=== PATIENT | female | born 1945 | race Caucasian/White ===

== ENCOUNTER → 2017-04-15 08:44 | Outpatient (CLI) | payer MEDICARE, SELFPAY ==
[2016-03-22 09:58] VITALS: BMI 23.0
[2017-04-15 09:57] LABS: AST(SGOT) 23 U/L (15-37); Alanine Aminotransfer ALT/SGPT 30 U/L (13-56); Albumin, Serum 3.9 g/dL (3.2-5.0); Alkaline Phosphatase 60 U/L (45-117); Cholesterol 251 mg/dL (200); Globulin 3.9 g/dL (2.2-4.2); High Density Lipoprotein 58 mg/dL; Protein, Total 7.8 g/dL (6.4-8.2); Triglycerides 62 mg/dL; Very Low Density Lipoprotein 12 mg/dL (5-40)
== END ==
PROVIDERS: Nurse Practitioner Family; Family Provider Family Medicine; PCP Family Medicine; Visit Provider Internal Medicine Cardiovascular Disease
DX: E78.5 Hyperlipidemia, unspecified (principal); I25.10 Atherosclerotic heart disease of native coronary artery without angina pectoris; Z95.5 Presence of coronary angioplasty implant and graft
CPT/HCPCS: 36415; 80061; 80076

== ENCOUNTER 2017-05-13 11:30 | Outpatient (RCR) | payer MEDICARE, SELFPAY ==
[2016-03-22 09:58] VITALS: BMI 23.0
[2016-08-23 10:28] LABS: Absolute Lymphocyte Count 2.19 X10^3/uL (0.83-4.51); Absolute Neutrophil Count 3.2 X10^3/uL (2.0-7.7); Basophil# 0.07 X10^3uL; Basophil% 1.1 % (0-1); Eosinophil# 0.19 X10^3/uL; Eosinophils% 3.1 % (0-5); Hematocrit 45.6 % (37-47); Hemoglobin 15.4 g/dL (12.0-15.0); Lymphocyte # 2.19 x10^3/uL (4.0); Mean Corp Hgb Conc 33.8 g/dL (32-36); Mean Corpuscular Hgb 29.7 pg (27.0-32.0); Mean Platelet Vol. 8.3 fL (6.2-12.0); Monocyte# 0.41 X10^3/uL; Monocyte% 6.7 % (0-10); Neutrophil # 3.23 X10^3/uL (2.7-7.7); Neutrophil % 53.1 % (47-70); Platelet Count 272 K/mm3 (150-450); RBC Distribution Width 13.5 % (11.6-14.6); Red Blood Count 5.18 M/mm3 (4.2-5.4); White Blood Count 6.1 K/mm3 (4.4-11.0)
[2016-08-23 10:44] VITALS: BP 128/84; PULSE 102; RESP 18; TEMP 37.1; O2SAT 98; BMI 23.1
[2016-08-23 11:28] LABS: AST(SGOT) 28 U/L (15-37); Alanine Aminotransfer ALT/SGPT 37 U/L (12-78); Alkaline Phosphatase 52 U/L (45-117); Anion Gap 8 (5-15); BUN 17 mg/dL (7-18); BUN/Creat Ratio 17.6 RATIO (10-20); Calcium,Total 9.6 mg/dL (8.5-10.1); Chloride 98 mmol/L (98-107); Creatinine, Serum 0.97 mg/dL (0.55-1.02); EST Glomerular Filtration Rate 60 mL/min (>60); Est Glom Filt Rate - Afr Amer 73 mL/min (>60); Glucose 98 mg/dL (70-110); Potassium 3.8 mmol/L (3.5-5.1); Sodium Level 135 mmol/L (136-145)
--- NOTE | 2016-08-23 13:08 | PN_ITS ---
- Date of Service Date of Service:: 08/23/16 - Chief Complaint f/u for Polycythemia - History of Present Illness 71y.o.woman presented with Polycythemia, JAK2 and exon 12 mutations was negative. Secondary Polycythemia was negative, has had Phlebotomy on and off for general weakness and malaise with improvement in symptoms. She feels well. 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 Past Surgical History Surgical: Hysterectomy,Tonsillectomy Other Surgical History: JOINT REMOVAL BIALTERAL GREAT TOE STENT () 03-21-16 Family History Paternal Past Medical History: Emphysema Maternal Past Medical History: Unknown Maternal History of Cancer: Colon cancer Social History Smoking Status Former smoker Review of Systems Constitutional:: Denies: Fever, Sweats, Weight loss, Appetite change, Chills Cardiovascular:: Denies: Chest pain, Palpitations, Dyspnea on exertion, Orthopnea, PND, Shortness of breath Respiratory: Denies: Cough, Hemoptysis, Shortness of Breath, Wheezing Gastrointestinal:: Denies: Abdominal pain, Nausea, Vomiting, Diarrhea, Constipation, Hematochezia Genitourinary: Denies: Dysuria, Hematuria, 15, Flank pain Musculoskeletal:: Denies: Back pain, Myalgia, Arthralgia Skin: Denies: Rash, Skin Changes, Wounds Neurological:: Denies: Headache, Dizziness, Visual changes, Tinnitus, Hearing loss Psychiatric: Denies: Anxiety, Depression, Homicidal Ideations, Suicidal Ideations Objective Vital Signs Height 1.52 m Weight: 53.705 kg Weight in Pounds 118.4 lbs BMI 23.0 Pulse Ox 98 Temperature 98.7 F Pulse Rate 102 Respiratory Rate 18 Blood Pressure 128/84 Blood Pressure Position Sitting - Physical Exam General: Alert, Oriented x3, No apparent distress Laboratory Data: Laboratory Tests 08/23/16 08/23/16 Range/Units 10:15 10:15 WBC 6.1 (4.4-11.0) K/mm3 RBC 5.18 (4.2-5.4) M/mm3 Hgb 15.4 H (12.0-15.0) g/dL Hct 45.6 (37-47) % MCV 88.0 (81-99) fL MCH 29.7 (27.0-32.0) pg MCHC 33.8 (32-36) g/dL RDW 13.5 (11.6-14.6) % Plt Count 272 (150-450) K/mm3 MPV 8.3 (6.2-12.0) fL Neut % (Auto) 53.1 (47-70) % Lymph % (Auto) 36.0 (19-41) % [place] % (Auto) 6.7 (0-10) % Eos % (Auto) 3.1 (0-5) % Baso % (Auto) 1.1 H (0-1) % Absolute Neuts (auto) 3.2 (2.0-7.7) X10^3/uL Absolute Lymphs (auto) 2.19 (0.83-4.51) X10^3/uL Total Counted Not Reportable Sodium 135 L (136-145) mmol/L Potassium 3.8 (3.5-5.1) mmol/L Chloride 98 (98-107) mmol/L Carbon Dioxide 29.0 (21.0-32.0) mmol/L Anion Gap 8 (5-15) BUN 17 (7-18) mg/dL Creatinine 0.97 (0.55-1.02) mg/dL Estim Creat Clear Calc 37.10 ml/min Est GFR (MDRD) Af Amer 73 (>60) mL/min Est GFR (MDRD) Non-Af 60 (>60) mL/min BUN/Creatinine Ratio 17.6 (10-20) RATIO Glucose 98 (70-110) mg/dL Calcium 9.6 (8.5-10.1) mg/dL Total Bilirubin 0.70 (0.20-1.00) mg/dL AST 28 (15-37) U/L ALT 37 (12-78) U/L Alkaline Phosphatase 52 (45-117) U/L Total Protein 8.0 (6.4-8.2) g/dL Albumin 4.0 (3.4-5.0) g/dL Globulin 4.0 H (2.3-3.5) g/dL Albumin/Globulin Ratio 1.0 (0.9-2.4) RATIO Assessment and Plan Polycythemia-HCT is 45. Clinically stable. Gammopathy-Increased globulin. Plan is to continue observation. RTC 3 months with cbc, cmp, spep, IgG/A/M. Primary Care Provider: Saeed Griffith Referring Provider: (1) Gammopathy Status: Acute (2) Acquired polycythemia Status: Resolved
[2016-08-23 18:16] LABS: Xtra Tube EP Lab EXTRA TUBE
[2016-11-15 10:46] LABS: Absolute Lymphocyte Count 2.29 X10^3/uL (0.83-4.51); Absolute Neutrophil Count 3.6 X10^3/uL (2.0-7.7); Basophil# 0.06 X10^3uL; Basophil% 0.9 % (0-1); Eosinophil# 0.31 X10^3/uL; Eosinophils% 4.4 % (0-5); Hematocrit 41.3 % (37-47); Hemoglobin 13.9 g/dL (12.0-15.0); Lymphocyte # 2.29 x10^3/uL (4.0); Lymphocyte % 33.1 % (19-41); Mean Corp Hgb Conc 33.6 g/dL (32-36); Mean Corpuscular Hgb 28.9 pg (27.0-32.0); Mean Corpuscular Volume 86.1 fL (81-99); Mean Platelet Vol. 7.1 fL (6.2-12.0); Monocyte# 0.64 X10^3/uL; Monocyte% 9.2 % (0-10); Neutrophil # 3.61 X10^3/uL (2.7-7.7); Neutrophil % 52.3 % (47-70); Platelet Count 292 K/mm3 (150-450); RBC Distribution Width 14.5 % (11.6-14.6); Red Blood Count 4.79 M/mm3 (4.2-5.4); White Blood Count 6.9 K/mm3 (4.4-11.0)
[2016-11-15 11:06] VITALS: BP 122/80; PULSE 83; RESP 16; TEMP 36.4; O2SAT 98; BMI 23.7
--- NOTE | 2016-11-15 11:26 | PN_ITS ---
- Date of Service Date of Service:: 11/15/16 - Chief Complaint Follow up-polycythemia - History of Present Illness 71y.o.woman presented with Polycythemia, JAK2 and exon 12 mutations was negative. Secondary Polycythemia was negative, has had Phlebotomy on and off for general weakness and malaise with improvement in symptoms. - Interval History The patient is presenting to clinic for routine 6 month follow up. Last therapeutic phlebotomy approximately 1 year ago. Reports since her last visit. Experienced transient viral illness causing vomiting/diarrhea and dehydration 2 weeks ago. Symptoms have since resolved. Specifically she denies weight loss , new onset bone pain, chest pain, shortness of breath, swelling and pain of her extremities and any episodes of overt bleeding or abnormal bruising. 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 Past Surgical History Surgical: Hysterectomy,Tonsillectomy Other Surgical History: JOINT REMOVAL BIALTERAL GREAT TOE STENT (1) 03-21-16 Family History Paternal Past Medical History: Emphysema Maternal Past Medical History: Unknown Maternal History of Cancer: Colon cancer Social History Smoking Status Former smoker Review of Systems Constitutional:: Denies: Fever, Sweats, Weight loss, Appetite change, Chills Cardiovascular:: Denies: Chest pain, Palpitations, Dyspnea on exertion, Orthopnea, PND, Shortness of breath Respiratory: Denies: Cough, Hemoptysis, Shortness of Breath, Wheezing Gastrointestinal:: Denies: Abdominal pain, Nausea, Vomiting, Diarrhea, Constipation, Hematochezia Genitourinary: Denies: Dysuria, Hematuria, 15, Flank pain Musculoskeletal:: Denies: Back pain, Myalgia, Arthralgia Skin: Denies: Rash, Skin Changes, Wounds Neurological:: Denies: Headache, Dizziness, Visual changes, Tinnitus, Hearing loss Psychiatric: Denies: Anxiety, Depression, Homicidal Ideations, Suicidal Ideations Objective Vital Signs Height 1.52 m Weight: 55.157 kg Weight in Pounds 121.6 lbs BMI 23.0 Pulse Ox 98 Temperature 97.6 F Pulse Rate 83 Respiratory Rate 16 Blood Pressure 122/80 Blood Pressure Position Sitting - Physical Exam General: Alert, Oriented x3, No apparent distress HEENT: Atraumatic, Normocephalic Oropharynx:: Negative for: Dry mucosa, Ulcerated lesions Neck:: Supple, Trachea midline. Negative for: JVD, bilateral Cardiac:: Regular rate, Regular rhythm, Normal S1, Normal S2. Negative for: Murmur Lungs: Clear to auscultation, Excusion symmetrical. Negative for: Rhonchi, Wheezes Abdomen:: Bowel sounds x 4, Soft, Non-tender, Non-distended. Negative for: Hepatosplenomegaly Extremities:: Negative for: Cyanosis, Edema Skin:: Negative for: Lesions, Rash, Petechiae, Ecchymosis Psychiatric:: Appropriate affect, Euthymic Lymphatics:: Negative for: Cervical lymphadenopathy, Supraclavicular lymphadenopathy, Axillary lymphadenopathy Laboratory Data: Laboratory Tests 11/15/16 Range/Units 10:38 WBC 6.9 (4.4-11.0) K/mm3 RBC 4.79 (4.2-5.4) M/mm3 Hgb 13.9 (12.0-15.0) g/dL Hct 41.3 (37-47) % MCV 86.1 (81-99) fL MCH 28.9 (27.0-32.0) pg MCHC 33.6 (32-36) g/dL RDW 14.5 (11.6-14.6) % Plt Count 292 (150-450) K/mm3 MPV 7.1 (6.2-12.0) fL Neut % (Auto) 52.3 (47-70) % Lymph % (Auto) 33.1 (19-41) % [place] % (Auto) 9.2 (0-10) % Eos % (Auto) 4.4 (0-5) % Baso % (Auto) 0.9 (0-1) % Absolute Neuts (auto) 3.6 (2.0-7.7) X10^3/uL Absolute Lymphs (auto) 2.29 (0.83-4.51) X10^3/uL Total Counted Not Reportable Assessment and Plan 1. Polycythemia-Resolved. Hematocrit today 41.3% and has been consistently less than 42-45%. JAK2 negative. Likely polycythemia was secondary and underlying cause has been corrected. 2. Gammopathy-Increased globulin level of 4 in April 2016. SPEP and SFLC were completed 03/2015 and normal, no M spike identified. Plan is to continue observation. RTC 6 months with repeat CBC and CMP, sooner if issues arise. This visit incident to the treatment plan previously established by Dr. Deisi Carrera, MSN, [employer], AOCNP Primary Care Provider: Saeed Griffith Referring Provider: (1) Polycythemia Status: Acute (2) Gammopathy Status: Acute
[2016-11-15 18:38] LABS: Xtra Tube EP Lab EXTRA TUBE
[2017-05-13 11:16] VITALS: BP 129/82; PULSE 73; RESP 14; TEMP 36.4; O2SAT 99; BMI 24.2
[2017-05-13 11:20] LABS: Absolute Lymphocyte Count 1.56 X10^3/ul (0.83-4.51); Absolute Neutrophil Count 7.2 X10^3/uL (2.0-7.7); Basophil# 0.02 X10^3/uL; Basophil% 0.2 % (0-1); Eosinophils% 2.1 % (0-5); Hematocrit 39.8 % (37-47); Hemoglobin 12.9 g/dl (12.0-15.0); Lymphocyte # 1.56 X10^3/ul (4.0); Mean Corp Hgb Conc 32.4 g/gl (32-36); Mean Corpuscular Hgb 27.1 pg (27.0-32.0); Mean Corpuscular Volume 83.6 fL (81-99); Mean Platelet Vol. 9.8 fl (6.2-12.0); Monocyte# 0.75 X10^3/uL; Monocyte% 7.7 % (0-10); Neutrophil # 7.17 X10^3/uL (2.7-7.7); Neutrophil % 73.8 % (47-70); Platelet Count 289 K/mm3 (150-450); RBC Distribution Width CV 15.3 % (11.6-14.6); RBC Distribution Width SD 46.1 fl (35.1-43.9); Red Blood Count 4.76 M/mm3 (4.2-5.4); White Blood Count 9.7 K/mm3 (4.4-11.0)
[2017-05-13 11:22] LABS: POSITIVE COUNT NO; POSITIVE DIFFERENTIAL NO; POSITIVE MORPHOLOGY NO
[2017-05-13 11:38] LABS: AST(SGOT) 22 U/L (15-37); Alanine Aminotransfer ALT/SGPT 37 U/L (13-56); Albumin, Serum 3.7 g/dL (3.2-5.0); Alkaline Phosphatase 63 U/L (45-117); Anion Gap 9 (5-15); BUN 24 mg/dL (7-18); BUN/Creat Ratio 32.8 RATIO (10-20); Chloride 101 mmol/L (98-107); Creatinine, Serum 0.73 mg/dL (0.55-1.02); EST Glomerular Filtration Rate 83 mL/min (>60); Est Glom Filt Rate - Afr Amer 100 mL/min (>60); Estimated Creatinine Clearance 35.45 ml/min; Globulin 3.8 g/dL (2.2-4.2); Glucose 91 mg/dL (74-106); Potassium 4.4 mmol/L (3.5-5.1); Protein, Total 7.5 g/dL (6.4-8.2); Sodium Level 136 mmol/L (136-145)
--- NOTE | 2017-05-13 11:41 | ONC.OV1 ---
Subjective - Date of Service Date of Service:: 05/13/17 - Chief Complaint Follow up-polycythemia - History of Present Illness 72y.o.woman presented with Polycythemia, JAK2 and exon 12 mutations was negative. Secondary Polycythemia was negative, has had Phlebotomy on and off for general weakness and malaise with improvement in symptoms. 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 She has been on observation for about yr, comes in for follow up. Had a fall and broke her left ribs about a week ago. 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 Past Surgical History Surgical: Hysterectomy,Tonsillectomy Other Surgical History: JOINT REMOVAL BIALTERAL GREAT TOE STENT (1) 03-21-16 Family History Paternal Past Medical History: Emphysema Maternal Past Medical History: Unknown Maternal History of Cancer: Colon cancer Social History Smoking Status Former smoker Review of Systems Constitutional:: Reports: Pain - Left ribs Cardiovascular:: Denies: Ankle swelling, Leg pains, Palpitations Respiratory: Denies: Cough, Hemoptysis, Shortness of Breath, Wheezing Gastrointestinal:: Denies: Abdominal pain, Nausea, Vomiting, Diarrhea, Constipation, Hematochezia Genitourinary: Denies: Dysuria, Hematuria, 15, Flank pain Musculoskeletal:: Denies: Back pain, Myalgia, Arthralgia Skin: Denies: Rash, Skin Changes, Wounds Vital Signs Height 5 ft Weight: 56.245 kg Weight in Pounds 124.0 lbs BMI 23.0 Pulse Ox 99 Temperature 97.6 F Pulse Rate 73 Respiratory Rate 14 Blood Pressure 129/82 Blood Pressure Position Sitting - Physical Exam General: Alert, Oriented x3, No apparent distress, - - moving slowly because of Left Rib pain. Laboratory Data: Laboratory Tests 05/13/17 05/13/17 05/13/17 Range/Units 11:01 10:59 10:59 WBC 9.7 Cancelled Corrected WBC (auto) Cancelled Corrected WBC Cancelled RBC 4.76 Cancelled Hgb 12.9 Cancelled Hct 39.8 Cancelled MCV 83.6 Cancelled MCH 27.1 Cancelled MCHC 32.4 Cancelled RDW 15.3 H Cancelled RDW Differential 46.1 H (35.1-43.9) fl Plt Count 289 Cancelled MPV 9.8 Cancelled Immature Gran % (Auto) 0.200 (0.0-0.9) % Neut % (Auto) 73.8 H Cancelled Lymph % (Auto) 16.0 L Cancelled [place] % (Auto) 7.7 Cancelled Eos % (Auto) 2.1 Cancelled Baso % (Auto) 0.2 Cancelled Absolute Neuts (auto) 7.2 Cancelled Absolute Lymphs (auto) 1.56 Cancelled Total Counted Not Reportable Cancelled Neutrophils % (Manual) Cancelled Band Neutrophils % Cancelled Lymphocytes % (Manual) Cancelled Monocytes % (Manual) Cancelled Eosinophils % (Manual) Cancelled Basophils % (Manual) Cancelled Metamyelocytes % Cancelled Myelocytes % Cancelled Promyelocytes % Cancelled Blast Cells % Cancelled Plasma Cell % (Manual) Cancelled Other Cells % Cancelled Nucleated RBCs/100 WBC Cancelled Differential Comment Cancelled Diff Path Review Cancelled Hypersegmented Neuts Cancelled Atypical Lymphocytes Cancelled Reactive Lymphocytes Cancelled Smudge Cells Cancelled Toxic Granulation Cancelled Dohle Bodies Cancelled Franny Rods Cancelled Platelet Estimate Cancelled Plt Morphology Comment Cancelled RBC Morphology Cancelled Polychromasia Cancelled Hypochromasia Cancelled Basophilic Stippling Cancelled Anisocytosis Cancelled Microcytosis Cancelled Macrocytosis Cancelled Spherocytes Cancelled Sickle Cells Cancelled Target Cells Cancelled Tear Drop Cells Cancelled Ovalocytes Cancelled Stomatocytes Cancelled Abdi-[place] Bodies Cancelled Reinaldo Cells Cancelled Bite Cells Cancelled Acanthocytes (Spur) Cancelled Rouleaux Cancelled Schistocytes Cancelled Sodium 136 (136-145) mmol/L Potassium 4.4 (3.5-5.1) mmol/L Chloride 101 (98-107) mmol/L Carbon Dioxide 26.0 (21.0-32.0) mmol/L Anion Gap 9 (5-15) BUN 24 H (7-18) mg/dL Creatinine 0.73 (0.55-1.02) mg/dL Estim Creat Clear Calc 35.45 ml/min Est GFR (MDRD) Af Amer 100 (>60) mL/min Est GFR (MDRD) Non-Af 83 (>60) mL/min BUN/Creatinine Ratio 32.8 H (10-20) RATIO Glucose 91 (74-106) mg/dL Calcium 9.0 (8.5-10.1) mg/dL Total Bilirubin 0.30 (0.20-1.00) mg/dL AST 22 (15-37) U/L ALT 37 (13-56) U/L Alkaline Phosphatase 63 (45-117) U/L Total Protein 7.5 (6.4-8.2) g/dL Albumin 3.7 (3.2-5.0) g/dL Globulin 3.8 (2.2-4.2) g/dL Albumin/Globulin Ratio 1.0 (0.9-2.4) RATIO Assessment and Plan Polycythemia resolved. Plan is to continue observation. F/u with PCP and be referred if new problems arise. RTC prn. Medications: Prescriptions This Visit Medication Instructions Recorded [place]-3/Dha/Epa/Fish Oil [[place] 3 1 tab PO DAILY 05/16/16 500 Softgel] Primary Care Provider: Saeed Griffith Referring Provider: - Problem List (1) Gammopathy Status: Resolved (2) Acquired polycythemia Status: Resolved Code Visit Office Visits / Consults: [id number] OV L3 Est
--- NOTE | 2017-05-13 11:52 | WMO.OV_ITS ---
Subjective - Date of Service Date of Service:: 05/13/17 - Chief Complaint Follow up-polycythemia - History of Present Illness 72y.o.woman presented with Polycythemia, JAK2 and exon 12 mutations was negative. Secondary Polycythemia was negative, has had Phlebotomy on and off for general weakness and malaise with improvement in symptoms. 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 She has been on observation for about yr , comes in for follow up. Had a fall and broke her left ribs about a week ago. 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 Past Surgical History Surgical: Hysterectomy,Tonsillectomy Other Surgical History: JOINT REMOVAL BIALTERAL GREAT TOE STENT (1) 03-21-16 Family History Paternal Past Medical History: Emphysema Maternal Past Medical History: Unknown Maternal History of Cancer: Colon cancer Social History Smoking Status Former smoker Review of Systems Constitutional:: Reports: Pain - Left ribs Cardiovascular:: Denies: Ankle swelling, Leg pains, Palpitations Respiratory: Denies: Cough, Hemoptysis, Shortness of Breath, Wheezing Gastrointestinal:: Denies: Abdominal pain, Nausea, Vomiting, Diarrhea, Constipation, Hematochezia Genitourinary: Denies: Dysuria, Hematuria, 15, Flank pain Musculoskeletal:: Denies: Back pain, Myalgia, Arthralgia Skin: Denies: Rash, Skin Changes, Wounds Vital Signs Height 5 ft Weight: 56.245 kg Weight in Pounds 124.0 lbs BMI 23.0 Pulse Ox 99 Temperature 97.6 F Pulse Rate 73 Respiratory Rate 14 Blood Pressure 129/82 Blood Pressure Position Sitting - Physical Exam General: Alert, Oriented x3, No apparent distress, - - moving slowly because of Left Rib pain. Laboratory Data: Laboratory Tests 3 05/13/17 05/13/17 05/13/17 Range/Units 11:01 10:59 10:59 WBC 9.7 Cancelled Corrected WBC (auto) Cancelled Corrected WBC Cancelled RBC 4.76 Cancelled Hgb 12.9 Cancelled Hct 39.8 Cancelled MCV 83.6 Cancelled MCH 27.1 Cancelled MCHC 32.4 Cancelled RDW 15.3 H Cancelled RDW Differential 46.1 H (35.1-43.9) fl Plt Count 289 Cancelled MPV 9.8 Cancelled Immature Gran % (Auto) 0.200 (0.0-0.9) % Neut % (Auto) 73.8 H Cancelled Lymph % (Auto) 16.0 L Cancelled [place] % (Auto) 7.7 Cancelled Eos % (Auto) 2.1 Cancelled Baso % (Auto) 0.2 Cancelled Absolute Neuts (auto) 7.2 Cancelled Absolute Lymphs (auto) 1.56 Cancelled Total Counted Not Reportable Cancelled Neutrophils % (Manual) Cancelled Band Neutrophils % Cancelled Lymphocytes % (Manual) Cancelled Monocytes % (Manual) Cancelled Eosinophils % (Manual) Cancelled Basophils % (Manual) Cancelled Metamyelocytes % Cancelled Myelocytes % Cancelled Promyelocytes % Cancelled Blast Cells % Cancelled Plasma Cell % (Manual) Cancelled Other Cells % Cancelled Nucleated RBCs/100 WBC Cancelled Differential Comment Cancelled Diff Path Review Cancelled Hypersegmented Neuts Cancelled Atypical Lymphocytes Cancelled Reactive Lymphocytes Cancelled Smudge Cells Cancelled Toxic Granulation Cancelled Dohle Bodies Cancelled Franny Rods Cancelled Platelet Estimate Cancelled Plt Morphology Comment Cancelled RBC Morphology Cancelled Polychromasia Cancelled Hypochromasia Cancelled Basophilic Stippling Cancelled Anisocytosis Cancelled Microcytosis Cancelled Macrocytosis Cancelled Spherocytes Cancelled Sickle Cells Cancelled Target Cells Cancelled Tear Drop Cells Cancelled Ovalocytes Cancelled Stomatocytes Cancelled Abdi-[place] Bodies Cancelled Reinaldo Cells Cancelled Bite Cells Cancelled Acanthocytes (Spur) Cancelled Rouleaux Cancelled Schistocytes Cancelled Sodium 136 (136-145) mmol/L Potassium 4.4 (3.5-5.1) mmol/L Chloride 101 (98-107) mmol/L Carbon Dioxide 26.0 (21.0-32.0) mmol/L Anion Gap 9 (5-15) BUN 24 H (7-18) mg/dL Creatinine 0.73 (0.55-1.02) mg/dL Estim Creat Clear Calc 35.45 ml/min Est GFR (MDRD) Af Amer 100 (>60) mL/min Est GFR (MDRD) Non-Af 83 (>60) mL/min BUN/Creatinine Ratio 32.8 H (10-20) RATIO Glucose 91 (74-106) mg/dL Calcium 9.0 (8.5-10.1) mg/dL Total Bilirubin 0.30 (0.20-1.00) mg/dL AST 22 (15-37) U/L ALT 37 (13-56) U/L Alkaline Phosphatase 63 (45-117) U/L Total Protein 7.5 (6.4-8.2) g/dL Albumin 3.7 (3.2-5.0) g/dL Globulin 3.8 (2.2-4.2) g/dL Albumin/Globulin Ratio 1.0 (0.9-2.4) RATIO Assessment and Plan Polycythemia resolved. Plan is to continue observation. F/u with PCP and be referred if new problems arise. RTC prn. Medications: Prescriptions This Visit Medication Instructions Recorded [place]-3/Dha/Epa/Fish Oil [[place] 3 1 tab PO DAILY 05/16/16 500 Softgel] Primary Care Provider: Saeed Griffith Referring Provider: - Problem List (1) Gammopathy Status: Resolved (2) Acquired polycythemia Status: Resolved Code Visit Office Visits / Consults: [id number] OV L3 Est
[2017-05-13 19:02] LABS: Xtra Tube EP Lab EXTRA TUBE
== END 2017-06-13 16:21 | disposition home or self-care (01) ==
LOC: OMD 11:30
PROVIDERS: Nurse Practitioner Family; Family Provider Family Medicine; PCP Family Medicine; Visit Provider Internal Medicine Medical Oncology
DX: D75.1 Secondary polycythemia (principal)
CPT/HCPCS: 36415; 80053; 85025

== ENCOUNTER → 2017-06-17 08:49 | Outpatient (CLI) | payer MEDICARE, SELFPAY ==
[2016-03-22 09:58] VITALS: BMI 23.0
[2017-06-17 09:43] LABS: AST(SGOT) 25 U/L (15-37); Alanine Aminotransfer ALT/SGPT 31 U/L (13-56); Albumin, Serum 3.8 g/dL (3.2-5.0); Alkaline Phosphatase 65 U/L (45-117); Bilirubin, Direct 0.11 mg/dL (0.00-0.30); Cholesterol 188 mg/dL (200); Globulin 3.5 g/dL (2.2-4.2); High Density Lipoprotein 55 mg/dL; Protein, Total 7.3 g/dL (6.4-8.2); Triglycerides 91 mg/dL; Very Low Density Lipoprotein 18 mg/dL (5-40)
== END ==
PROVIDERS: Family Provider Family Medicine; PCP Family Medicine; Visit Provider Internal Medicine Cardiovascular Disease
DX: E78.5 Hyperlipidemia, unspecified (principal)
CPT/HCPCS: 36415; 80061; 80076

== ENCOUNTER → 2017-07-03 13:11 | Outpatient (CLI) | payer MEDICARE, SELFPAY ==
[2016-03-22 09:58] VITALS: BMI 23.0
== END ==
PROVIDERS: Visit Provider Obstetrics & Gynecology
DX: N39.0 Urinary tract infection, site not specified (principal)
CPT/HCPCS: 87086; 87088; 87186

== ENCOUNTER → 2017-08-08 16:32 | Outpatient (CLI) | payer MEDICARE, SELFPAY ==
[2016-03-22 09:58] VITALS: BMI 23.0
== END ==
PROVIDERS: Visit Provider Obstetrics & Gynecology
DX: R30.0 Dysuria (principal); B96.20 Unspecified Escherichia coli [E. coli] as the cause of diseases classified elsewhere
CPT/HCPCS: 87086; 87088

== ENCOUNTER → 2017-11-11 09:04 | Outpatient (CLI) | payer MEDICARE, SELFPAY ==
[2016-03-22 09:58] VITALS: BMI 23.0
[2017-11-11 10:18] LABS: AST(SGOT) 26 U/L (15-37); Alanine Aminotransfer ALT/SGPT 32 U/L (13-56); Albumin, Serum 3.6 g/dL (3.2-5.0); Alkaline Phosphatase 55 U/L (45-117); Bilirubin, Direct 0.12 mg/dL (0.00-0.30); Cholesterol 200 mg/dL (200); Globulin 3.5 g/dL (2.2-4.2); High Density Lipoprotein 53 mg/dL; Protein, Total 7.1 g/dL (6.4-8.2); Triglycerides 91 mg/dL; Very Low Density Lipoprotein 18 mg/dL (5-40)
== END ==
PROVIDERS: Family Provider Family Medicine; PCP Family Medicine; Visit Provider Internal Medicine Cardiovascular Disease
DX: E78.5 Hyperlipidemia, unspecified (principal); I25.10 Atherosclerotic heart disease of native coronary artery without angina pectoris; Z95.5 Presence of coronary angioplasty implant and graft
CPT/HCPCS: 36415; 80061; 80076

== ENCOUNTER → 2018-07-02 | Outpatient (CLI) | payer MEDICARE, SELFPAY ==
[2016-03-22 09:58] VITALS: BMI 23.0
[2018-06-03 15:38] VITALS: BMI 25.5
[2018-06-24 11:01] VITALS: BMI 25.4
--- NOTE | 2018-07-02 10:11 | NEURO ---
NCS and/or EMG Patient Report Ordering Doctor: Saeed Griffith Jr. 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 She reports a history of burning and tight sensation on the bottom of her feet and toes, causing difficulty sleeping, equal on both sides, present for approximately 2 years. Healthy otherwise without a history of diabetes. Brief examination demonstrates decreased sensation particularly to pinprick in her feet with relatively intact position sense and light touch. Bilateral lower extremity sensory and motor nerve conduction study is performed. The sural sensory distal latencies, amplitudes and conduction velocities are preserved however there is asymmetric reduction of the amplitude on the right side of unclear clinical significance. The motor responses from the common peroneal nerves bilaterally showed prolonged latencies, and reduced amplitudes more so on the left side. Conduction velocities are also reduced more so on the left side. Tibial motor amplitudes are somewhat reduced, more so on the right side, which also demonstrates slowed velocities and prolonged distal latencies. F-wave latencies from the tibial and common peroneal nerves bilaterally are prolonged, and H reflex amplitudes are suppressed bilaterally. Right lower extremity needle electromyography is performed. Muscles evaluated included the extensor digitorum brevis, abductor hallucis, medial gastrocnemius, anterior tibialis, vastus medialis and vastus lateralis muscles. Distal muscles in the foot demonstrated early recruitment with large amplitudes. These abnormalities resolved with more proximal muscles. Fibrillation potentials and pathologic spontaneous activity was normal in all muscles tested. Impression: This is an abnormal electrophysiologic study of the lower extremities most consistent with polyneuropathy, likely idiopathic. If not done, other testing could include testing for B12 levels, serum and urine protein electrophoresis, hepatic function studies, hemoglobin A1c, and markers for inflammation.
== END | disposition home or self-care (01) ==
PROVIDERS: Family Provider Family Medicine; PCP Family Medicine; Referring Provider Family Medicine; Visit Provider Family Medicine
DX: G62.9 Polyneuropathy, unspecified (principal); M79.7 Fibromyalgia
CPT/HCPCS: 95886; 95910

== ENCOUNTER → 2018-09-30 09:48 | Outpatient (CLI) | payer MEDICARE, SELFPAY ==
[2016-03-22 09:58] VITALS: BMI 23.0
[2018-06-24 11:01] VITALS: BMI 25.4
[2018-07-29 11:47] VITALS: BMI 25.5
--- NOTE | 2018-10-01 08:08 | PFT ---
INTRODUCTION: The patient is a 73-year-old female that presents for pulmonary function studies secondary to a diagnosis of shortness of breath. Respiratory therapy reports good patient effort. Bronchodilators were used during testing. INTERPRETATION: Forced expiration spirometry demonstrates no evidence of a large airways obstructive ventilatory defect. There was no significant response to aerosolized bronchodilators, based upon strict ATS criteria. Body plethysmography was performed and reveals above normal lung volumes, likely erroneous in nature. Diffusing capacity by single breath CO is within normal limits. IMPRESSION: Normal pulmonary function studies.
== END ==
PROVIDERS: Family Provider Family Medicine; PCP Family Medicine; Referring Provider Internal Medicine Critical Care Medicine; Visit Provider Internal Medicine Critical Care Medicine
DX: R06.02 Shortness of breath (principal)
CPT/HCPCS: 94060; 94726; 94729

== ENCOUNTER → 2018-10-02 | Outpatient (CLI) | payer MEDICARE, SELFPAY ==
[2016-03-22 09:58] VITALS: BMI 23.0
[2018-06-24 11:01] VITALS: BMI 25.4
[2018-07-29 11:47] VITALS: BMI 25.5
[2018-10-02 12:30] VITALS: PULSE 100; PULSE 104; PULSE 105; PULSE 107; PULSE 108; PULSE 109; PULSE 112; PULSE 118; O2SAT 90; O2SAT 91; O2SAT 92; O2SAT 93; O2SAT 95; O2SAT 98
--- NOTE | 2018-10-03 10:34 | PCM.PSN.6M ---
PSN 6 Minute Walk Test - 6 Minute Walk Test 6 Minute Walk Test: 6 Minute Walk Test PSN:6-Minute Walk Test Start: 10/02/18 12:44 Freq: Status: Active Protocol: [id number] Document 10/02/18 12:30 HG (Rec: 10/02/18 12:48 HG [id number]) 6 Minute Walk Test Date Performed 10/02/18 Time Performed 12:30 Height 4 ft 11 in Weight: 125 lb Weight in Pounds 125.[address]: Yamil Reece Assistive device used: None Pre-test Oxygen Delivery Method Room Air Pulse Ox (%) 95 Pulse Rate (60-100 beats/min) 100 Dyspnea Brendan Scale (0-10) 1 Exertion Brendan Scale (6-20) 8 1st minute Oxygen Delivery Method Room Air Pulse Ox (%) 98 Pulse Rate (60-100 beats/min) 105 H 2nd minute Oxygen Delivery Method Room Air Pulse Ox (%) 91 Pulse Rate (60-100 beats/min) 108 H 3rd minute Oxygen Delivery Method Room Air Pulse Ox (%) 92 Pulse Rate (60-100 beats/min) 112 H 4th minute Oxygen Delivery Method Room Air Pulse Ox (%) 90 Pulse Rate (60-100 beats/min) 109 H 5th minute Oxygen Delivery Method Room Air Pulse Ox (%) 91 Pulse Rate (60-100 beats/min) 118 H 6th minute Oxygen Delivery Method Room Air Pulse Ox (%) 93 Pulse Rate (60-100 beats/min) 104 H Post-test Oxygen Delivery Method Room Air Pulse Ox (%) 98 Pulse Rate (60-100 beats/min) 107 H Dyspnea Brendan Scale (0-10) 3 Exertion Brendan Scale (6-20) 11 Full Laps Walked 17 Partial Lap, Number of Tiles Walked 0 Total Distance Walked (ft) 1003 - Interpretation Interpretation: The patient ambulated 1003 feet over the course of 6 minutes beginning on room air without assistive devices or breaks. Pretesting oxygen saturation was noted to be 95% on room air. With ambulation, the angie oxygen saturation was 90%. This represents a significant exertional oxygen desaturation. - Recommendations Recommendations: There is no indication for the use of supplemental oxygen at this time. However, close interval follow-up was recommended, given the degree of oxygen desaturation noted during this study.
== END | disposition home or self-care (01) ==
LOC: PSN 12:23
PROVIDERS: Family Provider Family Medicine; PCP Family Medicine; Referring Provider Internal Medicine Critical Care Medicine; Visit Provider Internal Medicine Critical Care Medicine
DX: R06.02 Shortness of breath (principal)
CPT/HCPCS: 94618

== ENCOUNTER → 2018-10-22 | Outpatient (CLI) | payer MEDICARE, SELFPAY ==
[2016-03-22 09:58] VITALS: BMI 23.0
[2018-10-13 10:34] VITALS: BMI 26.5
[2018-10-22 16:47] LABS: Bacteria 0 SEEN /hpf (None Seen); Mucous, Urine 0 SEEN /hpf (<or=2+); Red Blood Cells-Urine 0 SEEN /hpf (0-5); Squamous Epithelial Cells - UA 0 SEEN /hpf (5-10)
[2018-10-22 17:23] LABS: Color, Urine Yellow (Yellow); Glucose, Dipstick Normal (Normal); Ketone-Dipstick Negative (Negative); Leukocyte Esterase-Dipstick 500 /ul (Negative); Nitrite-Dipstick Negative (Negative); Occult Blood-Urine 250 /ul (Negative); Protein-Dipstick 100 mg/dl (Negative); Urine Bilirubin Dipstick Negative (Negative); Urine Clarity Cloudy (Clear); Urine Urobilinogen Normal (Normal); Urine pH 6.5 (5.0 - 8.0)
[2018-10-22 17:47] LABS: White Blood Cells >100 SEEN /hpf (0-5)
== END | disposition home or self-care (01) ==
LOC: LABSPEC 16:44
PROVIDERS: Visit Provider Obstetrics & Gynecology
DX: N39.0 Urinary tract infection, site not specified (principal)
CPT/HCPCS: 81001; 87086; 87088

== ENCOUNTER → 2018-10-31 | Outpatient (CLI) | payer MEDICARE, SELFPAY ==
[2016-03-22 09:58] VITALS: BMI 23.0
[2018-10-13 10:34] VITALS: BMI 26.5
--- NOTE | 2018-10-31 12:55 | CT_ITS ---
STUDY: CT CHEST WITHOUT CONTRAST REASON FOR EXAM: Female, 73 years old. Short of breath with exertion. RADIATION DOSAGE (If Supplied By Facility): CTDIvol = ( 7.63 ) mGy, DLP = ( 205.54 ) mGycm TECHNIQUE: Transaxial imaging was performed without the administration of intravenous contrast material. Individualized dose optimization techniques were used for this CT. COMPARISON: None. FINDINGS: Normal lung volumes. Bilateral small areas of platelike atelectasis or scarring. No infiltrates or effusions are seen. Normal heart and pericardium. There are calcifications of the coronary arteries. Normal mediastinum. Normal hilar regions. Normal unenhanced pulmonary arteries. There is atherosclerotic calcification of the aortic arch with tortuosity and elongation of the aortic arch and descending thoracic aorta. There are multi-level degenerative changes of the thoracic spine. There is no demonstrated acute abnormality of the visualized upper abdomen. CT/Chest without Contrast IMPRESSION: Small areas of platelike atelectasis or scarring but otherwise negative exam. Electronically Signed: Oscar Cotton MD at 22:15 EDT , Service support ,
--- NOTE | 2018-10-31 12:55 | ECHOD_ITS ---
Reason For Study: Dyspnea/SOB Procedure This was a 2D Doppler, Color Flow transthoracic echocardiogram. Exam performed in department. Left Ventricle Normal size and thickness. The estimated ejection fraction is 65 %. No evidence for diastolic dysfunction. No regional wall motion abnormalities noted. Right Ventricle Normal RV size. Normal systolic function. Atria The left atrium is mildly enlarged. Normal right atrium. No doppler evidence for ASD. Mitral Valve There is no stenosis. Mild (1+) mitral valve insufficiency. Tricuspid Valve There is no tricuspid stenosis. Pulmonary artery systolic pressure is 35 mmHg. Mild to moderate (1- 2+) tricuspid valve insufficiency. Aortic Valve Trisinus/trileaflet aortic valve. There is no aortic stenosis. No aortic valve insufficiency. Pulmonic Valve There is no pulmonic valvular stenosis. No pulmonic valve insufficiency. Great Vessels Normal aortic root. Pericardium/Pleural No pericardial effusion. MMode/2D Measurements & Calculations LVIDd: 3.5 cm IVSd: 0.94 cm Ao root diam: 2.8 cm LVIDs: 2.0 cm LVPWd: 1.0 cm LA dimension: 3.0 cm RVDd: 3.1 cm FS: 44.0 % LAV(MOD-bp): 51.0 ml LA A4 area: 19.2 cm2 RA A4 area: 11.9 cm2 LAV(MOD-bp) Indexed: 34.3 ml/m2 LAV(MOD-sp2): 47.2 ml LAV(MOD-sp4): 55.6 ml Time Measurements MV dec time: 0.25 sec Doppler Measurements & Calculations MV E max delvin: 64.7 cm/sec Lat Peak E' Delvin: 11.4 cm/sec Med Peak E' Delvin: 7.2 cm/sec MV A max delvin: 81.5 cm/sec E/E' lat: 5.7 E/E' med: 9.0 MV E/A: 0.79 MV V2 max: 80.9 cm/sec MV P1/2t max delvin: 72.8 cm/sec Ao V2 max: 136.3 cm/sec MV max P.6 mmHg MV P1/2t: 70.7 msec Ao max P.4 mmHg MV V2 mean: 46.3 cm/sec MV dec slope: 301.6 cm/sec2 MV mean P.99 mmHg MVA(P1/2t): 3.1 cm2 MV V2 VTI: 16.5 cm LV V1 max: 94.0 cm/sec PA V2 max: 88.8 cm/sec TR max delvin: 276.1 cm/sec LV V1 max P.5 mmHg TR max P.5 mmHg Interpretation Summary The estimated ejection fraction is 65 %. No evidence for diastolic dysfunction. Mild to moderate (1-2+) tricuspid valve insufficiency. Pulmonary artery systolic pressure is 35 mmHg. The left atrium is mildly enlarged. Ordering Physician: Yamil Reece Referring Physician: JORDIN Griffith M.D. Performed By: Lonnie Fraga RCS
== END | disposition home or self-care (01) ==
LOC: CT 12:54
PROVIDERS: Family Provider Family Medicine; PCP Family Medicine; Referring Provider Internal Medicine Critical Care Medicine; Visit Provider Internal Medicine Critical Care Medicine
DX: R06.02 Shortness of breath (principal)
CPT/HCPCS: 71250; 93306

== ENCOUNTER → 2018-11-06 | Outpatient (CLI) | payer MEDICARE, SELFPAY ==
[2016-03-22 09:58] VITALS: BMI 23.0
[2018-10-13 10:34] VITALS: BMI 26.5
== END | disposition home or self-care (01) ==
LOC: LABSPEC 11:27
PROVIDERS: Family Provider Family Medicine; PCP Family Medicine; Visit Provider Obstetrics & Gynecology
DX: N39.0 Urinary tract infection, site not specified (principal)
CPT/HCPCS: 87086; 87088

== ENCOUNTER → 2018-11-11 | Outpatient (CLI) | payer MEDICARE, SELFPAY ==
[2016-03-22 09:58] VITALS: BMI 23.0
[2018-10-13 10:34] VITALS: BMI 26.5
--- NOTE | 2018-11-11 14:21 | BI_ITS ---
MAMMOGRAPHY - BILATERAL SCREENING REASON FOR EXAM: Female, 73 years old. Routine annual screening examination. PERTINENT HISTORY: Mother with breast cancer. Aunt with breast cancer. TECHNIQUE: Digital bilateral breast venus (3D mammographic acquisition) in the CC and MLO projections. 2-D mediolateral oblique (MLO) and craniocaudad (CC) views of both breasts were obtained. CAD: Full Field Digital Mammography with Computer Added Detection was performed. COMPARISON: Comparison is made with prior study dated May 01, 2016 and April 20, 2015. FINDINGS: Breast Composition: There are scattered areas of fibroglandular density. There are no dominant masses or suspicious calcifications. The previously seen well-defined small nodules in the upper outer aspect of the left breast have decreased in size in keeping with history of prior cysts. No other significant abnormalities are identified. Interval decrease in size of the small cysts in the upper outer aspect of the left breast. BI/SCREEN MAMM (CAD) W/VENUS BILAT IMPRESSION: Stable bilateral screening mammogram. Yearly follow-up mammogram recommended. (A) ASSESSMENT CATEGORY: BIRADS Category 2: Benign. A letter regarding these results will be sent to the patient by the facility within 30 days. Approximately 10% of breast cancers are not detected by mammography. A normal mammogram should not delay biopsy of a clinically suspicious abnormality. [id number] Electronically Signed: Jw Story, at 15:44 EDT , Service support ,
--- NOTE | 2018-11-11 14:24 | BD_ITS ---
STUDY: DUAL ENERGY X-RAY ABSORPTIOMETRY / DXA REASON FOR EXAM: Female, 73 years old. The patient is postmenopausal. Daily prednisone use. TECHNIQUE: Bone Mineral Density (BMD) measurements of lumbar spine and bilateral hips were obtained. COMPARISON: Comparison is made with prior study dated October 11, 2009. FINDINGS: Lumbar Spine (L1-L4): g/cm2 (0.970) / T-score (-1.7) / Z-score (0.0) Findings are suggestive of osteopenia with a moderate fracture risk. Increased kyphosis. Left Femur Total: g/cm2 (0.950) / T-score (-0.5) / Z-score (1.3) Left Femoral Neck: g/cm2 (0.769) / T-score (-1.9) / Z-score (0.0) Right Femur Total: g/cm2 (0.938) / T-score (0.6) / Z-score (1.2) Right Femoral Neck: g/cm2 (0.787) / T-score (-1.8) / Z-score (0.1) The T-Scores on the most recent prior examination were: Lumbar Spine (L1-L4): There has been worsening of bone density since the previous examination. Left Femur Total: which represents a worsening of 8.7%. Right Femur Total: which represents a worsening of 7.4%. BD/Dexa Bone Density Study IMPRESSION: The patient is considered osteopenic as outlined below according to World Joe Organization (WHO) criteria with a moderate fracture risk. There has been worsening of bone density since the previous examination. Reference Information: The T-score is the number of standard deviations above or below the standard which is normal for young adults at their peak bone mineral density. The World Health Organization (WHO) interprets the T-scores as follows: Above -1 Normal bone density Between -1 and -2.5 Osteopenia Equal to / or below -2.5 Osteoporosis As a practical clinical guideline, osteopenia may be graded as follows: Mild -1 through -1.5 Moderate -1.6 through -2.0 Severe -2.1 through -2.4 The Z-score is the number of standard deviations above or below age-matched controls. A Z-score of less than -1.5 would be considered abnormal. References: 1. NIH Osteoporosis and Related Bone Diseases http://www.osteo.org 2. International Society for Clinical Densitometry http://www.iscd.org 3. National Osteoporosis Foundation http://www.nof.org Electronically Signed: Jw Story, at 11:13 EDT , Service support ,
== END | disposition home or self-care (01) ==
LOC: OPBD 14:19
PROVIDERS: Family Provider Family Medicine; PCP Family Medicine; Referring Provider Obstetrics & Gynecology; Visit Provider Obstetrics & Gynecology
DX: Z78.0 Asymptomatic menopausal state (principal); Z12.31 Encounter for screening mammogram for malignant neoplasm of breast
CPT/HCPCS: 77063; 77067; 77080

== ENCOUNTER 2018-11-13 08:08 | Day surgery (SDC) | payer MEDICARE, SELFPAY ==
[2016-03-22 09:58] VITALS: BMI 23.0
[2018-10-13 10:34] VITALS: BMI 26.5
[2018-11-10 16:38] LABS: Hematocrit 42.8 % (37-47); Hemoglobin 13.7 g/dL (12.0-15.0); Mean Corpuscular Hgb 29.7 pg (27.0-32.0); Mean Corpuscular Volume 92.6 fL (81-99); Mean Platelet Vol. 9.6 fl (6.2-12.0); Platelet Count 329 K/mm3 (150-450); RBC Distribution Width CV 13.9 % (11.6-14.6); RBC Distribution Width SD 47.2 fl (35.1-43.9); Red Blood Count 4.62 M/mm3 (4.2-5.4); White Blood Count 11.9 K/mm3 (4.4-11.0)
[2018-11-10 16:42] LABS: Prothrombin Time (Protime)PT. 13.2 SECONDS (11.7-14.9)
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
[2018-11-13] VITALS (8 sets, daily range): BP systolic 95–108; BP diastolic 60–68; PULSE 79–85; RESP 16; TEMP 36.4–36.7; O2SAT 97–100; BMI 26.2
[2018-11-13] MEDS: Lactated Ringers 1,000 ML 100 ML IV (08:44)
--- NOTE | 2018-11-13 09:50 | VAGW_PTH ---
PATIENT: FABIANO SOLANO LOC: [facility] [place] U#:[id number] AGE/SX: 73/F ROOM: RE11/13/[address]: Dr. Susy Cheung MD : 1945 BED: DIS: 11/13/2018 SPEC #: [id number] RECD: 11/13/18 11:40 STATUS: BRENNON REQ #: [id number] MYRA: 11/13/18 09:[address]: Susy Obrien DEPT: SURGICAL PATHOLOGY RECD BY: Roman Guevara ENTERED: 11/13/18 13:15 SP TYPE: VAG WALL OTHR DR: Dr. Saeed Griffith III, MD Tissues: Vagina, NOS Procedures: Surgery Specimen Level IV HEADER OPERATION: Exam under anesthesia, removal of pessary PRE-OP DIAGNOSIS: Postmenopausal bleeding TISSUE SUBMITTED: Vaginal wall biopsy MICROSCOPIC DIAGNOSIS Vaginal wall, biopsy: Fragments of squamous mucosa, fibroconnective tissue with granulation tissue reaction. SJ:yvonne 11/14/18 MICROSCOPIC DESCRIPTION Slides are reviewed. GROSS DESCRIPTION Received in fixative is one container labeled with the patient's name and designated vaginal wall biopsy. The specimen consists of multiple irregular fragments of chaney-pink soft tissue that in aggregate measure 1 x 0.5 x 0.1 cm. The specimen is totally submitted in one cassette. / JOY:yvonne 11/13/18 TC:5 CPT: 02166
[2018-11-13] MEDS: Estrogens,Conj. 1 Tube 1 DOSE (10:21)
--- NOTE | 2018-11-13 10:24 | PCM.OPRPT ---
Problem List (1) Postmenopausal bleeding Status: Acute (2) Encounter for pessary maintenance Status: Acute Report of Operation Date of Procedure: 11/13/18 Pre-Operative Diagnosis: PostMenopausal bleeding, retained pessary Post-Operative Diagnosis: Menopausal bleeding, pessary removal, vaginal erosion Surgery/Procedure Performed:: Examination under anesthesia, pessary removal Description of Surgical Findings:: Apical vaginal wall erosion extending into the upper lateral wall with superficial defect approximately 8 cm x 5 cm. Vaginal vault prolapse post hysterectomy. Type of Anesthesia:: MAC Anesthesiologist: Diego Mayen Specimen's removed: Vaginal wall biopsy Estimated Blood Loss (mL): 20 Fluids Replaced: 900 mL Description of Procedure: The patient was taken to the operating room and signed was performed. She is placed in dorsal supine position and induced under MAC. She was then repositioned to dorsolithotomy. The perineum was draped in sterile fashion. The ring pessary with support was visible at the introitus. It was grasped and notably was apically adhered. Using gentle massage adhesiolysis was performed allowing retrieval of the pessary from the apical vagina. A speculum exam was performed demonstrating a an extensive but superficial superior vaginal vault erosion without any visible masses or nodules. A rectovaginal exam was performed with no appreciable tract. A biopsy obtained of the eroded vaginal tissue edge. The vagina was packed using Premarin soaked gauze for additional hemostasis. A gram of IV cefotetan was administered intraoperatively given the extent of the erosion. The patient was then repositioned to dorsal fine, awakened and transferred to the recovery room without complication. - Admit VTE Documentation VTE Present on Admission: No VTE Mechan Device Prophylaxis: SCD's VTE Pharm Prophylaxis ordered?: No
--- NOTE | 2018-11-13 10:38 | DCINST_ITS ---
- Discharge Diagnoses Current Active Problems: Vaginal erosion Reason(s) for Visit for Discharge Instructions: Vaginal erosion You will use the following diet at home:: No restrictions Your food should be the consistency of: Regular Discharge Activity: Return to Normal Activity, May Shower, - - No driving for 24-48 hours No tub bath May resume sexual activity in: 4 weeks Call your doctor if you observe: Fever of 101 or Higher, Using more than one pad per hour, Chest pain, Calf discomfort, Uncontrolled pain Allergies/Adverse Reactions: Allergies iodine Allergy (Severe, Verified 11/13/18 08:27) Rash ticagrelor [From Brilinta] Allergy (Severe, Verified 11/13/18 08:27) Shortness of breath house dust mite Allergy (Verified 11/13/18 08:27) uknown atorvastatin [From Lipitor] Adverse Reaction (Intermediate, Verified 11/13/18 08:27) Pain in joints rosuvastatin calcium [From Crestor] Adverse Reaction (Intermediate, Verified 11/13/18 08:27) Pain in joints metoprolol [From Toprol XL] Adverse Reaction (Verified 11/13/18 08:27) gi upset pramipexole [From Mirapex] Adverse Reaction (Verified 11/13/18 08:27) Low blood pressure Fainted simvastatin [From Vytorin 10-10] Adverse Reaction (Verified 11/13/18 08:27) Pain in joints listed on pcp chart bee sting Allergy (Uncoded 11/13/18 08:27) Anaphylaxis Medications to take at Discharge Cyanocobalamin (Vitamin B-12) [Vitamin B-12] 1,000 mcg SL MOWEFR 04/01/13 Fludrocortisone Acetate [Florinef] 0.1 mg PO DAILY 04/01/13 Levothyroxine [Synthroid] 88 mcg PO MOTUWETHFRSA 04/01/13 Loratadine [Claritin] 1 tab PO DAILY PRN 04/01/13 Multivitamins,Therapeutic [Multivitamin] 1 tab PO DAILY 04/01/13 Omeprazole [Prilosec] 20 mg PO DAILY 04/01/13 Gabapentin [Neurontin] 600 - 1,800 mg PO QHS PRN 03/20/16 Levothyroxine [Synthroid] 44 mcg PO MIRANDA 03/20/16 Nitroglycerin (INPATIENT USE) [Nitrostat] 0.4 mg SUBLINGUAL Q5M PRN #25 tab 03/22/16 Potassium Chloride [K-Dur] 10 meq PO DAILYCM #30 tab 03/22/16 Aspirin [Aspirin, Baby] 81 mg PO DAILY@0800 03/25/16 [place]-3/Dha/Epa/Fish Oil [[place] 3 500 Softgel] 1 tab PO DAILY 05/16/16 ezetimibe 10 mg tablet 10 mg PO QDAY #90 tab 02/13/18 epinephrine 0.3 mg/0.3 mL injection, auto-injector 0.3 ml IM ONCE 06/23/18 prednisone 5 mg tablet 7.5 mg PO DAILY tab 06/24/18 gemfibrozil 600 mg tablet 600 mg PO BIDAC #180 tab 08/27/18 Biotin 10,000 mcg PO DAILY 11/06/18 Lisinopril 5 mg PO DAILY 11/06/18 Estrogens, Conjugated [Premarin] 1 dose VAGINAL DAILY #1 tube 11/13/18 Nitrofurantoin Macrocrystals [Macrobid] 100 mg PO BID 11/13/18 The following prescriptions were given: Estrogens, Conjugated [Premarin] 1 dose VAGINAL DAILY #1 tube Primary Care Physician: Saeed Griffith III, MD [Primary Care Provider] - Test Results: Test results from this visit will be discussed in further detail at your follow- up appointment, if applicable. Please Follow Up With: Susy Clarke MD When: 7-10 days
== END 2018-11-13 11:45 | disposition home or self-care (01) ==
LOC: SDC 08:09 → AC 08:09
PROVIDERS: Family Provider Family Medicine; PCP Family Medicine; Referring Provider Obstetrics & Gynecology; Visit Provider Obstetrics & Gynecology
PROC: (CPT 58120; principal; 2018-11-13 09:40)
DX: N99.3 Prolapse of vaginal vault after hysterectomy (principal); N95.0 Postmenopausal bleeding; N89.8 Other specified noninflammatory disorders of vagina; K21.9 Gastro-esophageal reflux disease without esophagitis; E78.00 Pure hypercholesterolemia, unspecified; D45 Polycythemia vera; E27.1 Primary adrenocortical insufficiency; I25.2 Old myocardial infarction; Z95.5 Presence of coronary angioplasty implant and graft; Z79.899 Other long term (current) drug therapy; Z87.891 Personal history of nicotine dependence
CPT/HCPCS: 58999; 36415; 85027; 85610; 85730; 86850; 86900; 86901; 88305; J7120; J2405

== ENCOUNTER → 2018-11-17 | Outpatient (CLI) | payer MEDICARE, SELFPAY ==
[2016-03-22 09:58] VITALS: BMI 23.0
[2018-11-17 11:12] VITALS: BMI 26.2
== END | disposition home or self-care (01) ==
LOC: PSN 14:52
PROVIDERS: Family Provider Family Medicine; PCP Family Medicine; Referring Provider Internal Medicine Critical Care Medicine; Visit Provider Internal Medicine Critical Care Medicine
DX: J47.9 Bronchiectasis, uncomplicated (principal)
CPT/HCPCS: 94667

== ENCOUNTER → 2018-12-24 | Outpatient (CLI) | payer MEDICARE, SELFPAY ==
[2016-03-22 09:58] VITALS: BMI 23.0
[2018-12-22 14:23] VITALS: BMI 27.2
[2018-12-24 09:27] LABS: AST(SGOT) 25 U/L (15-37); Alanine Aminotransfer ALT/SGPT 41 U/L (13-56); Albumin, Serum 3.7 g/dL (3.2-5.0); Alkaline Phosphatase 49 U/L (45-117); Bilirubin, Direct 0.16 mg/dL (0.00-0.30); Cholesterol 177 mg/dL (200); Globulin 3.5 g/dL (2.2-4.2); High Density Lipoprotein 55 mg/dL; Protein, Total 7.2 g/dL (6.4-8.2); Triglycerides 71 mg/dL; Very Low Density Lipoprotein 14 mg/dL (5-40)
== END | disposition home or self-care (01) ==
LOC: LAB 08:19
PROVIDERS: Family Provider Family Medicine; PCP Family Medicine; Referring Provider Nurse Practitioner Family; Visit Provider Nurse Practitioner Family
DX: E78.5 Hyperlipidemia, unspecified (principal)
CPT/HCPCS: 36415; 80061; 80076

== ENCOUNTER → 2019-01-06 13:40 | Outpatient (CLI) | payer MEDICARE, SELFPAY ==
[2016-03-22 09:58] VITALS: BMI 23.0
[2018-12-22 14:23] VITALS: BMI 27.2
--- NOTE | 2019-01-06 13:41 | STEWCON_ITS ---
Reason For Study: DYSPNEA/SOB Stress Results Protocol: Stress Echocardiogram Maximum Predicted HR: 145 bpm Target HR: 123 bpm % Maximum Predicted HR: 90 % DurationHeart Rate Stage (mm:ss) (bpm) BP Comment BASELINE 92 130/70DILUTED DEFINITY 2 CC USED YAMIL PROTOCOL- STAGE 1 3:00 116 124/70NO SX YAMIL PROTOCOL- STAGE 2 2:35 131 124/78DYSPNEA, NO CP RECOVERY 94 128/78 Stress Duration: 5:35 mm:ss Maximum Stress HR: 131 bpm Baseline Echocardiogram Findings The estimated ejection fraction is 65 %. Stress Echo Wall motion Data Resting WM Intermediate WM Stress WM Resting Wall Motion Wall Motion Stress No regional wall motion No regional wall motion abnormalities noted. abnormalities noted. EKG Data The baseline ECG displays normal sinus rhythm. The patient exercised according to the regular Yamil protocol for a total duration of 5:35. The maximum heart rate attained was 131 beats per minute. This was 90% of maximum predicted heart rate. The patient exercised into stage 2 of the Yamil protocol. During stress, there were no ST or T wave changes noted to suggest ischemia. No clinical angina was noted. No arrhythmias noted. Interpretation Summary The estimated ejection fraction is 65 %. Normal, adequate, treadmill echocardiogram. Negative for ischemia by EKG and echocardiographic criteria. No anginal symptoms noted. No arrhythmias noted. Appropriate blood pressure response to exercise. Below average exercise capacity for age. Final LVEF is 75%. Decreased sensitivity due to failure poor echo windows requiring Definity enhancing agent. Test terminated due to attainment of target heart rate and dyspnea. No complications. The study was technically difficult. Contrast injection was performed. Ordering Physician: Bnita Anderson Referring Physician: Binta Anderson Performed By: Lonnie Fraga RCS
== END ==
PROVIDERS: Family Provider Family Medicine; PCP Family Medicine; Referring Provider Physician Assistant Medical; Visit Provider Physician Assistant Medical
DX: I25.10 Atherosclerotic heart disease of native coronary artery without angina pectoris (principal); R06.09 Other forms of dyspnea; R06.02 Shortness of breath
CPT/HCPCS: 93017; 93350; Q9957; A4216; C8928

== ENCOUNTER → 2019-01-07 11:31 | Outpatient (CLI) | payer MEDICARE, SELFPAY ==
[2016-03-22 09:58] VITALS: BMI 23.0
[2018-12-22 14:23] VITALS: BMI 27.2
== END ==
PROVIDERS: Family Provider Family Medicine; PCP Family Medicine; Visit Provider Advanced Practice Midwife
DX: N39.0 Urinary tract infection, site not specified (principal)
CPT/HCPCS: 87086; 87088; 87186

== ENCOUNTER 2019-01-18 09:04 | Observation (INO) | payer MEDICARE, SELFPAY ==
[2016-03-22 09:58] VITALS: BMI 23.0
[2018-12-22 14:23] VITALS: BMI 27.2
[2019-01-18] VITALS (11 sets, daily range): BP systolic 108–145; BP diastolic 59–72; PULSE 72–86; RESP 13–16; TEMP 36.4–36.7; O2SAT 97–100; BMI 27.6; BMI 26.6
--- NOTE | 2019-01-18 09:22 | EKG12_ITS ---
Test Reason : CP Blood Pressure : / mmHG Vent. Rate : 077 BPM Atrial Rate : 077 BPM P-R Int : 134 ms QRS Dur : 084 ms QT Int : 364 ms P-R-T Axes : 058 054 057 degrees QTc Int : 411 ms Normal sinus rhythm Normal ECG Confirmed by ALEXANDRO LANG, PRAVEENA ([id number]), associate editor MARICEL SKELTON ([id number]) on 01/19/2019 2:52:17 PM Referred By: Ammon Zavala Confirmed By:PRAVEENA MC MD
--- NOTE | 2019-01-18 09:23 | RAD_ITS ---
STUDY: X-RAY CHEST REASON FOR EXAM: Female, 73 years old. Fatigue, chest heaviness TECHNIQUE: Single AP portable view of the chest. COMPARISON: March 25, 2016 chest x-ray FINDINGS: The lung markings are stable. There is mild thickening of the right minor fissure. There is no demonstrated pleural abnormality. Normal size heart. Normal mediastinum and bowen. Normal visualized pulmonary arteries. There is atherosclerotic calcification of the aortic arch with tortuosity. There are diffuse degenerative changes of the visualized thoracic spine. Normal visualized ribs, clavicles, and shoulders. There is no demonstrated abnormality of the visualized soft tissue structures of the upper abdomen. RAD/Chest 1 View (Portable) IMPRESSION: Stable chest no evidence of acute focal infiltrate. Electronically Signed: Sallie Barraza MD at 9:59 EST Tel , Service support ,
--- NOTE | 2019-01-18 09:25 | ED.DCSUM_ITS ---
History of Present Illness Chief Complaint: Chest Pain Informant: Patient Onset: - - Intermittently for several weeks, worse today. Current Severity: Mild Maximum Severity: Moderate Narrative: Patient presents with chest discomfort. She describes a heavy sensation in her chest and feeling that she has to consciously take a deep breath. Today she noted some pressure up in the left side of her neck and left shoulder. She has seen her front desk receptionist for this as this is been intermittent for several weeks. She had a echocardiogram and a stress test couple weeks ago. They were not able to visualize cardiac wall well and she is scheduled to undergo a heart cath on January 28. Because her symptoms were worse today she presented to the emergency room. Patient did have an VT 3 years ago. At that time she states she just felt very fatigued and short of breath, similar to how she is feeling now. Prior Similar Symptoms: With Prior VT CVD Risk Factors: Hypertension, Hypercholesterolemia - Past Medical History (1) Coronary artery disease Status: Chronic (2) Adrenal cortical insufficiency Status: Chronic (3) History of coronary artery stent placement Status: Chronic Comment: PCI-ROBBIE-LAD (4) Hyperlipidemia Status: Chronic (5) Hypertension Status: Chronic (6) Osteoporosis Status: Chronic (7) Polycythemia Status: Chronic Past Medical History - Allergies and Home Meds Allergies/Adverse Reactions: Allergies iodine Allergy (Severe, Verified 01/18/19 09:08) Rash ticagrelor [From Brilinta] Allergy (Severe, Verified 01/18/19 09:08) Shortness of breath amitriptyline Allergy (Unknown, Verified 01/18/19 09:08) Other house dust mite Allergy (Verified 01/18/19 09:08) uknown atorvastatin [From Lipitor] Adverse Reaction (Intermediate, Verified 01/18/19 09:08) Pain in joints rosuvastatin calcium [From Crestor] Adverse Reaction (Intermediate, Verified 01/18/19 09:08) Pain in joints metoprolol [From Toprol XL] Adverse Reaction (Verified 01/18/19 09:08) gi upset pramipexole [From Mirapex] Adverse Reaction (Verified 01/18/19 09:08) Low blood pressure Fainted simvastatin [From Vytorin 10-10] Adverse Reaction (Verified 01/18/19 09:08) Pain in joints listed on pcp chart bee sting Allergy (Uncoded 01/18/19 09:08) Anaphylaxis Primary Care Physician: Saeed Griffith III, MD [Primary Care Provider] - Doctors: Dr. Rodriguez Prior records reviewed: Yes Surgical History: - Lives: Spouse/ Significant Other Smoking Status: Former smoker - Family History Maternal Family History: Family History (Last Updated 12/23/18 @ 11:56 by Linda Rehman) Mother Colon cancer Father Emphysema, unspecified Son Down's syndrome Sister Breast cancer Thyroid disorder Aunt Breast cancer Uncle Myocardial infarction, Onset Age: 55 Other Asthma Heart disease Hyperlipidemia Family History: Reports: No pertinent history Review of Systems General: Denies: Chills, Fever Eyes: Denies: Visual changes - bilaterally ENT: Denies: Bilateral ear pain Cardiovascular: Reports: Chest pain. Denies: Palpitations, Heart racing Respiratory: Reports: Dyspnea. Denies: Cough, Sputum Gastrointestinal: Denies: Abdominal pain, Nausea, Vomiting, Diarrhea Genitourinary: Denies: Dysuria Skin: Denies: Rash Neurological: Denies: Headache Hematologic: Denies: Easy bruising, Easy bleeding Allergy: Denies: Uticaria Physical Exam Vital Signs/Narrative: Vital Signs Temp Pulse Resp BP Pulse Ox 01/18/19 09:05 97.6 F L 80 14 145/72 H 99 Inital Vital Signs reviewed: Yes General: Well nourished, Well developed Head: Normocephalic ENT: Moist mucous membranes Neck: Supple Cardiovascular: Regular rate, Regular rhythm Respiratory: No distress, CTA bilaterally, Chest nontender Abdomen: Soft, Nontender Extremities: Nontender Skin: Normal color, No rash Neurological: Alert, Oriented x3 Psychological: Normal affect Diagnostic/Tx/Re-eval Impressions Chest X-Ray 01/18/19 09:23 IMPRESSION: Stable chest no evidence of acute focal infiltrate. Electronically Signed: Sallie Barraza MD at 9:59 EST Tel , Service support , 01/18/19 09:23 Chest 1 View (Portable) [RAD] Stat Laboratory Results 01/18/19 01/18/19 09:13 09:13 WBC 7.0 RBC 4.60 Hgb 14.1 Hct 42.5 MCV 92.4 MCH 30.7 MCHC 33.2 RDW Std Deviation 41.8 RDW Coeff of Asher 12.2 Plt Count 253 MPV 9.8 Immature Gran % (Auto) 0.600 Neut % (Auto) 41.6 L Lymph % (Auto) 46.0 H Gregory % (Auto) 8.2 Eos % (Auto) 3.0 Baso % (Auto) 0.6 Absolute Neuts (auto) 2.9 Absolute Lymphs (auto) 3.20 Nucleated RBC % 0 Sodium 140 Potassium 3.7 Chloride 108 H Carbon Dioxide 25.0 Anion Gap 7 BUN 14 Creatinine 0.67 Estim Creat Clear Calc 47.65 Est GFR (MDRD) Af Amer 110 Est GFR (MDRD) Non-Af 91 BUN/Creatinine Ratio 20.8 H Glucose 89 Calcium 8.9 Troponin I < 0.015 - EKG Initial EKG Interpretation: Sinus Rhythm - Sinus at 77 with no acute ischemia. Treatment: Aspirin CHANEL Risk: Age >/= 65, >/= 3RF, H/O CAD, ASA within 7 days Score: 4 - Medical Decision Making Patient's EKG and troponin are negative at this time. Patient has been having ongoing symptoms and is scheduled for a heart cath in the next 10 days. I discussed the case with Dr. Rader. I will speak with hospitalist regarding admission. They will check the cath scheduled to see about moving up her test. ED Disposition - Plan for ED Patient: Disposition: Acute Care Hospital [facility] Diagnosis: Chest pain Referrals: Saeed Griffith III, MD [Primary Care Provider] -
[2019-01-18 09:38] LABS: Absolute Neutrophil Count 2.9 X10^3/uL (2.0-7.7); Basophil# 0.04 X10^3/uL; Basophil% 0.6 % (0-1); Eosinophil# 0.21 X10^3/uL; Hematocrit 42.5 % (37-47); Hemoglobin 14.1 g/dL (12.0-15.0); Mean Corp Hgb Conc 33.2 g/dL (32-36); Mean Corpuscular Hgb 30.7 pg (27.0-32.0); Mean Corpuscular Volume 92.4 fL (81-99); Mean Platelet Vol. 9.8 fl (6.2-12.0); Monocyte# 0.57 X10^3/uL; Monocyte% 8.2 % (0-10); NRBC Flagged by Analyzer 0 % (0-5); Neutrophil # 2.89 X10^3/uL (2.7-7.7); Neutrophil % 41.6 % (47-70); Platelet Count 253 K/mm3 (150-450); RBC Distribution Width CV 12.2 % (11.6-14.6); RBC Distribution Width SD 41.8 fl (35.1-43.9)
[2019-01-18] MEDS: 0.9% Normal Saline 1,000 ML 150 ML IV (09:46)
[2019-01-18] MEDS: Aspirin 81 MG TAB.CHEW 324 MG PO (09:46)
[2019-01-18 09:49] LABS: Anion Gap 7 (5-15); BUN 14 mg/dL (7-18); BUN/Creat Ratio 20.8 RATIO (10-20); Calcium,Total 8.9 mg/dL (8.5-10.1); Chloride 108 mmol/L (98-107); Creatinine, Serum 0.67 mg/dL (0.55-1.02); EST Glomerular Filtration Rate 91 mL/min (>60); Est Glom Filt Rate - Afr Amer 110 mL/min (>60); Estimated Creatinine Clearance 47.65 ml/min; Glucose 89 mg/dL (74-106); Potassium 3.7 mmol/L (3.5-5.1); Sodium Level 140 mmol/L (136-145)
--- NOTE | 2019-01-18 11:22 | HP.PCM_ITS ---
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 (10) Cystocele, midline Status: Chronic (11) Hyperlipidemia Status: Chronic Qualifiers: Hyperlipidemia type: unspecified Qualified Code(s): E78.5 - Hyperlipidemia, unspecified (12) Atherosclerosis of coronary artery of [place] heart without angina pectoris Status: Chronic Qualifiers: Coronary Disease-Associated Artery/Lesion type: [place] artery Qualified Code(s): I25.10 - Atherosclerotic heart disease of [place] coronary artery without angina pectoris Comment: PCI-ROBBIE-LAD 03/22/16 (13) History of coronary artery stent placement Status: Chronic Comment: PCI-ROBBIE-LAD (14) Hypertension Status: Chronic Qualifiers: Hypertension type: unspecified Qualified Code(s): I10 - Essential (primary) hypertension (15) Status post insertion of drug-eluting stent into left anterior descending (LAD) artery Status: Chronic (16) Polycythemia Status: Chronic History of Present Illness Date of Admission: 01/18/19 Chief Complaint: Chest pain The patient is a 73 year old F with past medical history single for CAD with previous stent placement presented with chest pain. Patient symptoms started a couple of weeks prior to current admission. Has been evaluated as outpatient including undergoing a nuclear stress test which was acute will call. On the morning of presentation she did develop chest discomfort located in the left upper chest radiating down her left shoulder and her neck. She also did complain of some shortness of breath. Patient was not sure if her symptoms were were related to activity. In the ED initial set of cardiac enzymes came back unremarkable subsequently admitted to a monitored bed for further management. Of note patient had been scheduled to undergo a left heart catheterization on 01/28/2019. The wafer production lead worker on-call was notified recommended admission for possible heart cath was patient is in the hospital. Past Medical History Past Medical History (Chronic Problems): Chronic Problems (Last Reviewed 01/18/19 @ 11:33 by Ammon Zavala MD) Coronary artery disease (Chronic) Bronchiectasis (Chronic) Osteoporosis (Chronic) Thyroid disease (Chronic) Julio Cesar's disease with struma lymphomatosa (Chronic) Adrenal cortical insufficiency (Chronic) Atrophy of vagina (Chronic) Cystocele, midline (Chronic) Hyperlipidemia (Chronic) Atherosclerosis of coronary artery of [place] heart without angina pectoris (Chronic) PCI-ROBBIE-LAD 03/22/16 History of coronary artery stent placement (Chronic ~03/22/16) PCI-ROBBIE-LAD Hypertension (Chronic) Status post insertion of drug-eluting stent into left anterior descending (LAD) artery (Chronic) Polycythemia (Chronic) Medical History: Medical History (Last Reviewed 01/18/19 @ 11:33 by Ammon Zavala MD) Osteoporosis (Chronic) M81.0 Thyroid disease (Chronic) E07.9 Julio Cesar's disease with struma lymphomatosa (Chronic) E06.3, E27.8 Adrenal cortical insufficiency (Chronic) E27.40 Atrophy of vagina (Chronic) N95.2 Cystocele, midline (Chronic) N81.11 History of polycythemia vera (Resolved) Z86.2 History of polycythemia (Resolved) Z86.2 Iron deficiency (Resolved) E61.1 Hyperlipidemia (Chronic) E78.5 Atherosclerosis of coronary artery of [place] heart without angina pectoris (Chronic) I25.10 PCI-ROBBIE-LAD 03/22/16 Hypertension (Chronic) I10 Status post insertion of drug-eluting stent into left anterior descending (LAD) artery (Chronic) Z95.5 Gammopathy (Resolved) D47.2 Anemia D64.9 Arthritis M19.90 Breast lump N63.0 Cataracts, bilateral H26.9 GERD (gastroesophageal reflux disease) K21.9 H/O transfusion of whole blood Z92.89 H/O: pneumonia Z87.01 High triglycerides E78.1 Hives L50.9 Insomnia G47.00 Kidney disease N28.9 Low calcium levels E83.51 Neuropathy G62.9 Osteopenia M85.80 Recurrent UTI N39.0 Restless leg syndrome G25.81 Seasonal allergies J30.2 Skin cancer C44.90 Stomach ulcer K25.9 Allergies iodine Allergy (Severe, Verified 01/18/19 09:08) Rash ticagrelor [From Brilinta] Allergy (Severe, Verified 01/18/19 09:08) Shortness of breath amitriptyline Allergy (Unknown, Verified 01/18/19 09:08) Other house dust mite Allergy (Verified 01/18/19 09:08) uknown atorvastatin [From Lipitor] Adverse Reaction (Intermediate, Verified 01/18/19 09:08) Pain in joints rosuvastatin calcium [From Crestor] Adverse Reaction (Intermediate, Verified 01/18/19 09:08) Pain in joints metoprolol [From Toprol XL] Adverse Reaction (Verified 01/18/19 09:08) gi upset pramipexole [From Mirapex] Adverse Reaction (Verified 01/18/19 09:08) Low blood pressure Fainted simvastatin [From Vytorin 10-10] Adverse Reaction (Verified 01/18/19 09:08) Pain in joints listed on pcp chart bee sting Allergy (Uncoded 01/18/19 09:08) Anaphylaxis Home Medications: Ambulatory Orders Medication Instructions Recorded Fludrocortisone Acetate [Florinef] 0.1 mg PO DAILY 04/01/13 Multivitamins,Therapeutic 1 tab PO DAILY 04/01/13 [Multivitamin] Omeprazole [Prilosec] 40 mg PO DAILY 04/01/13 Nitroglycerin (INPATIENT USE) 0.4 mg SUBLINGUAL Q5M PRN #25 tab 03/22/16 [Nitrostat] Aspirin [Aspirin, Baby] 81 mg PO DAILY@0800 03/25/16 epinephrine 0.3 mg/0.3 mL 0.3 ml IM ONCE 06/23/18 injection, auto-injector Biotin 10,000 mcg PO DAILY 11/06/18 Lisinopril 5 mg PO DAILY 11/06/18 ezetimibe 10 mg tablet 10 mg PO QDAY #90 tab 12/22/18 gemfibrozil 600 mg tablet 600 mg PO BID #180 tab 12/22/18 levothyroxine 88 mcg tablet 88 mcg PO MOTUWETHFRSA 12/23/18 mecobalamin (vitamin B12) 1,000 1,000 mcg SUBLINGUAL MOWEFR tab 12/23/18 mcg disintegrating tablet,sublingual prednisone 5 mg tablet 7.5 mg PO DAILY tab 12/23/18 Cholecalciferol (VIT D3) [Vitamin 5,000 unit PO DAILY 01/18/19 D] Flaxseed Oil 1,000 mg PO DAILY 01/18/19 Gabapentin [Neurontin] 1,200 mg PO QHS 01/18/19 Levothyroxine [Synthroid] 44 mcg PO MIRANDA 01/18/19 acapella 1 applic PO BID 01/18/19 Surgical History: Surgical History (Last Reviewed 01/18/19 @ 11:33 by Ammon Zavala MD) History of hysterectomy (Resolved) Z98.890, Z90.710 History of tonsillectomy (Resolved) Z98.890, Z90.89 Joint removal bilateral great toe (Resolved) History of coronary artery stent placement (Chronic) Onset Date: ~03/22/16 Z95.5 PCI-ROBBIE-LAD Surgical History: - Lives: Spouse/ Significant Other Smoking Status: Former smoker - *Family History Maternal Family History: Family History (Last Reviewed 01/18/19 @ 11:33 by Ammon Zavala MD) Mother Colon cancer Father Emphysema, unspecified Son Down's syndrome Sister Breast cancer Thyroid disorder Aunt Breast cancer Uncle Myocardial infarction, Onset Age: 55 Other Asthma Heart disease Hyperlipidemia History Items: No pertinent history Review of Systems Constitutional: Denies: Anorexia, Chills, Fever, Night Sweats, Weight Change HEENT: Denies: Head Aches, Sinus Congestion, Sinus Drainage Cardiovascular: Reports: Chest Pain. Denies: Orthopnea, Palpitations Respiratory: Reports: Shortness of Breath. Denies: Cough Gastrointestinal: Denies: Abdominal Pain, Hematemesis, Hematochezia, Nausea, Melena, Vomiting Genitourinary: Denies: Dysuria, Frequency, Hematuria, Urgency Musculoskeletal: Denies: Joint Pain, Joint Tenderness Skin: Denies: Rash Neurological: Denies: Focal weakness, Numbness, Tingling Psychiatric: Denies: Homicidal Ideations, Suicidal Ideations Hematologic/ Lymphatic: Denies: Easy Bruising, Easy Bleeding VTE Information - Inpt Only VTE Present on Admission: No VTE Mechan Device Prophylaxis: None VTE Pharm Prophylaxis ordered?: Yes Patient Problems: Active and Suspected Problems (Last Reviewed 01/18/19 @ 11:33 by Ammon Zavala MD) Chest pain (Acute) Unstable angina pectoris due to coronary arteriosclerosis (Acute) Objective: GENERAL: cooperative HEENT: Atraumatic; EYES; Anicteric, Normal Conjunctiva NECK; supple, normal thyroid, RESPIRATORY: Diminished to auscultation CARDIOVASCULAR: Regular S1 S2, GI: soft, normoactive bowel sounds, : No Renal angle tenderness; EXTREMITIES: No edema, no clubbing, MUSCULOSKELETAL: no muscle waisting NEURO: Awake; no lateralizing signs. SKIN: No Rash PSYCH; Flat affect - Physical Exam Vitals/I&O's: Vital Signs Temp Pulse Resp BP Pulse Ox 97.6 F L 75 13 121/66 H 100 01/18/19 09:05 01/18/19 10:52 01/18/19 10:52 01/18/19 10:52 01/18/19 10:52 Oxygen Delivery Method Room Air Weight: 62.1 kg Body Mass Index (BMI) 27.6 Laboratory Results 01/18/19 09:13: WBC 7.0, RBC 4.60, Hgb 14.1, Hct 42.5, MCV 92.4, MCH 30.7, MCHC 33.2, RDW Std Deviation 41.8, RDW Coeff of Asher 12.2, Plt Count 253, MPV 9.8, Immature Gran % (Auto) 0.600, Neut % (Auto) 41.6 L, Lymph % (Auto) 46.0 H, Gem % (Auto) 8.2, Eos % (Auto) 3.0, Baso % (Auto) 0.6, Absolute Neuts (auto) 2.9, Absolute Lymphs (auto) 3.20, Nucleated RBC % 0 01/18/19 09:13: Sodium 140, Potassium 3.7, Chloride 108 H, Carbon Dioxide 25.0, Anion Gap 7, BUN 14, Creatinine 0.67, Estim Creat Clear Calc 47.65, Est GFR (MDRD) Af Amer 110, Est GFR (MDRD) Non-Af 91, BUN/Creatinine Ratio 20.8 H, G lucose 89, Calcium 8.9, Troponin I < 0.015 Current Medications Sodium Chloride () 1,000 mls @ 150 mls/hr IV .Q6H40M KYLAH Last Admin: 01/18/19 09:46 Dose: 150 mls/hr Documented by: Assessment/Plan All Active Problems (Last Reviewed 01/18/19 @ 11:33 by Ammon Zavala MD) Chest pain (Acute) Unstable angina pectoris due to coronary arteriosclerosis (Acute) Postmenopausal bleeding (Resolved) Encounter for pessary maintenance (Resolved) History of hysterectomy (Resolved) History of tonsillectomy (Resolved) Joint removal bilateral great toe (Resolved) History of polycythemia vera (Resolved) History of polycythemia (Resolved) Iron deficiency (Resolved) Gammopathy (Resolved) Abnormal stress test (Resolved) Acquired polycythemia (Resolved) Chest pain (Resolved) Lightheadedness (Resolved) Shortness of breath (Resolved) Patient is a 73-year-old lady presented with chest pain 1. Unstable angina ?Patient presented with chest pain admitted to monitored bed serial cardiac enzymes ordered to rule out HI. Patient was scheduled to undergo an elective left heart catheterization on 01/28/2019. Consult placed to cardiology. Decision for patient to have the procedure deferred. Patient was however started on aspirin low molecular weight heparin patient was not started on statin therapy apparently has allergies 2 CAD ~with previous angioplasty and stent placement in the mid LAD lesion on 03/22/2016 3. Hypothyroidism ~patient is on levothyroxine home dose continued 4. Hypertension ~ blood pressure controlled, home medications continued with dose adjustment as needed 5. DVT prophylaxis ~ on enoxaparin Advance planning; did discuss with the patient and and her daughter. Regarding advanced directives as well as CODE STATUS. Did explain the various scenarios involved ( FULL CODE, DNR CCA, DNR CCA with no intubation, and DNR CC and what each meant) patient elected to remain full code with intubation and CPR if needed. Order was placed. Time spent on discussion 17 minutes. Code Visit OBSV E&M: 23050 Initial observation care L3 Procedures: 71368 Advncd Care Plan 30 Min
--- NOTE | 2019-01-18 11:53 | CON.PCM_ITS ---
Reason for Consult Date of Consultation: 01/18/19 Reason for Consultation: Fatigue History of Present Illness: ] Mrs. Ratliff is a very pleasant 73-year-old nondiabetic female with a history of Laurel's disease, hypothyroidism, polycythemia vera , and received phlebotomy a pproximately 2 times per year. Patient originally presented with progressively worsening fatigue, tiredness,and then substernal chest pressure while exercising at a local gym. This morning, after the she started complaining of being fatigued again and said that it reminded her of her previous events. She had been seen in the office and was originally scheduled to undergo a left heart catheterization on the of this month. An EKG was nondiagnostic and she underwent a stress test which demonstrated possible mid anteroseptal hypokinesis. She had a left heart catheterization which demonstrated nonobstructive RCA and left circumflex disease but a critical lesion in her mid LAD. This was treated with a 3.0X 12 Promus synergy drug- eluting stent postdilated with a 3.0X 8 noncompliant balloon. This was in 2017. In the emergency room she was evaluated her EKG was unremarkable and cardiac enzymes were also normal. However the patient appears to be rather nervous and concerned about the discomfort and it was felt that she should be admitted for her to undergo the intended test. Past Medical History Allergies/Adverse Reactions: Allergies iodine Allergy (Severe, Verified 01/18/19 09:08) Rash ticagrelor [From Brilinta] Allergy (Severe, Verified 01/18/19 09:08) Shortness of breath amitriptyline Allergy (Unknown, Verified 01/18/19 09:08) Other house dust mite Allergy (Verified 01/18/19 09:08) uknown atorvastatin [From Lipitor] Adverse Reaction (Intermediate, Verified 01/18/19 09:08) Pain in joints rosuvastatin calcium [From Crestor] Adverse Reaction (Intermediate, Verified 01/18/19 09:08) Pain in joints metoprolol [From Toprol XL] Adverse Reaction (Verified 01/18/19 09:08) gi upset pramipexole [From Mirapex] Adverse Reaction (Verified 01/18/19 09:08) Low blood pressure Fainted simvastatin [From Vytorin 10-10] Adverse Reaction (Verified 01/18/19 09:08) Pain in joints listed on pcp chart bee sting Allergy (Uncoded 01/18/19 09:08) Anaphylaxis Home Medications: Ambulatory Orders Medication Instructions Recorded Fludrocortisone Acetate [Florinef] 0.1 mg PO DAILY 04/01/13 Multivitamins,Therapeutic 1 tab PO DAILY 04/01/13 [Multivitamin] Omeprazole [Prilosec] 40 mg PO DAILY 04/01/13 Nitroglycerin (INPATIENT USE) 0.4 mg SUBLINGUAL Q5M PRN #25 tab 03/22/16 [Nitrostat] Aspirin [Aspirin, Baby] 81 mg PO DAILY@0800 03/25/16 epinephrine 0.3 mg/0.3 mL 0.3 ml IM ONCE 06/23/18 injection, auto-injector Biotin 10,000 mcg PO DAILY 11/06/18 Lisinopril 5 mg PO DAILY 11/06/18 ezetimibe 10 mg tablet 10 mg PO QDAY #90 tab 12/22/18 gemfibrozil 600 mg tablet 600 mg PO BID #180 tab 12/22/18 levothyroxine 88 mcg tablet 88 mcg PO MOTUWETHFRSA 12/23/18 mecobalamin (vitamin B12) 1,000 1,000 mcg SUBLINGUAL MOWEFR tab 12/23/18 mcg disintegrating tablet,sublingual prednisone 5 mg tablet 7.5 mg PO DAILY tab 12/23/18 Cholecalciferol (VIT D3) [Vitamin 5,000 unit PO DAILY 01/18/19 D] Flaxseed Oil 1,000 mg PO DAILY 01/18/19 Gabapentin [Neurontin] 1,200 mg PO QHS 01/18/19 Levothyroxine [Synthroid] 44 mcg PO MIRANDA 01/18/19 acapella 1 applic PO BID 01/18/19 Past Medical History (Chronic Problems): Chronic Problems (Last Reviewed 01/18/19 @ 11:33 by Ammon Zavala MD) Coronary artery disease (Chronic) Bronchiectasis (Chronic) Osteoporosis (Chronic) Thyroid disease (Chronic) 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) Cystocele, midline (Chronic) Hyperlipidemia (Chronic) Atherosclerosis of coronary artery of [place] heart without angina pectoris (Chronic) PCI-ROBBIE-LAD 03/22/16 History of coronary artery stent placement (Chronic ~03/22/16) PCI-ROBBIE-LAD Hypertension (Chronic) Status post insertion of drug-eluting stent into left anterior descending (LAD) artery (Chronic) Polycythemia (Chronic) Surgical History: - - *Family History Maternal Family History: Family History (Last Reviewed 01/18/19 @ 11:33 by Ammon Zavala MD) Mother Colon cancer Father Emphysema, unspecified Son Down's syndrome Sister Breast cancer Thyroid disorder Aunt Breast cancer Uncle Myocardial infarction, Onset Age: 55 Other Asthma Heart disease Hyperlipidemia History Items: No pertinent history Lives: Spouse/ Significant Other Smoking Status: Former smoker Alcohol: None Drugs: None Review of Systems - Review of Systems General: Reports: Fatigue, Malaise. Denies: Fever, Night Sweats HEENT: Denies: Vision Change Cardiovascular: Reports: Chest Discomfort, Chest Discomfort at Rest. Denies: Shortness of Breath, Orthopnea, PND, Peripheral Edema, Palpitations, Lightheadedness, Dizziness, Near Syncope, Syncope Respiratory: Denies: Cough, Sputum Production, Hemoptysis Gastrointestinal: Denies: Hematemesis, Hematochezia, Melena Genitourinary: Denies: Dysuria, Hematuria Skin: Denies: Rash Neurological: Denies: Dizziness Psychiatric: Reports: Anxiety Endocrine: Denies: Heat Intolerance Hematologic/ Lymphatic: Denies: Anemia Subjectve: Pleasant lady in no distress at this time Objective: Vital Signs Temp Pulse Resp BP Pulse Ox 97.6 F L 75 13 121/66 H 100 01/18/19 09:05 01/18/19 10:52 01/18/19 10:52 01/18/19 10:52 01/18/19 10:52 Oxygen Delivery Method Room Air Weight: 136 lb 14.513 oz Body Mass Index (BMI) 27.6 General: Awake, Alert, Oriented x 3 HEENT: PERRL, EOMI, Sclera Non Icteric Neck: Supple, Good ROM, No Lymph Node Enlargement Lungs: Clear to auscultation Cardiovascular: Regular Rhythm, Normal S1, Normal S2, No Murmurs, No Rubs, No Gallops Vascular: No Carotid Bruits, Normal Femoral Pulses, Normal Radial Pulses, Normal Dorsalis Pedal Pulse, Normal Posterior Tibial Pulses Abdomen: Bowel Sounds Present, Soft, Non Tender, No HSM, No Organomegaly Extremities: No Cyanosis, No Clubbing, No edema Musculoskeletal: No Erythema Skin: No Rashes Lymphatic: No Lymph Node Enlargement Neurological: No Focal Motor or Sensory Deficit Psych/Mental Status: Appropriate 01/18/19 09:13: WBC 7.0, RBC 4.60, Hgb 14.1, Hct 42.5, MCV 92.4, MCH 30.7, MCHC 33.2, Plt Count 253, MPV 9.8, Immature Gran % (Auto) 0.600, Neut % (Auto) 41.6 L , Lymph % (Auto) 46.0 H, [place] % (Auto) 8.2, Eos % (Auto) 3.0, Baso % (Auto) 0.6, Absolute Neuts (auto) 2.9, Nucleated RBC % 0 01/18/19 09:13: Sodium 140, Potassium 3.7, Chloride 108 H, Carbon Dioxide 25.0, Anion Gap 7, BUN 14, Creatinine 0.67, Est GFR (MDRD) Af Amer 110, Est GFR (MDRD) Non-Af 91, BUN/Creatinine Ratio 20.8 H, Glucose 89, Calcium 8.9, Troponin I < 0.015 Rhythm: EKG: Normal sinus rhythm with no acute changes Assessment/Plan 1. Fatigue and chest pain * Patient presents with fatigue and minimal chest discomfort. She says this is reminiscent of her previous event. She apparently had a stress test which was inconclusive, where she exercised 5 minutes and 35 seconds without any wall motion abnormalities. Echocardiographic images were however suboptimal. She was scheduled to undergo a cardiac catheterization, originally supposed to be scheduled on the of this month * Would recommend resuming her home medications * Will load up with clopidogrel * Will set up for left heart catheterization in a.m. by her primary tree planter * 2. Coronary artery disease * Patient has known coronary artery disease with previous angioplasty and stenting of the left anterior descending artery with a drug-eluting stent. * Patient did not tolerate ticagrelor * Clopidogrel will therefore be reinstituted and this will be reevaluated. * 3. Hypertension * Good control continue current medical therapy * 4. Hyperlipidemia * Continue current risk factor modification * * Thank you for allowing me to participate in the care of your patient. Please don't hesitate to call if any issues arise
[2019-01-18] MEDS: Clopidogrel Bisulfate 300 MG Tablet PO (13:54)
[2019-01-18] MEDS: predniSONE 5 MG Tablet 7.5 MG PO (13:54)
[2019-01-18] MEDS: Enoxaparin 60 MG/0.6 ML Syringe SC ×2 (13:58→22:35)
[2019-01-18] MEDS: Acetaminophen 325 MG Tablet 650 MG PO ×2 (16:19→22:35)
[2019-01-18] MEDS: Gabapentin 400 MG Capsule PO (22:35)
[2019-01-18] MEDS: Gemfibrozil 600 MG Tablet PO (22:35)
[2019-01-18] MEDS: MELATONIN 3 MG TABLET PO (23:49)
[2019-01-19] VITALS (11 sets, daily range): BP systolic 98–117; BP diastolic 47–60; PULSE 62–89; RESP 16; TEMP 36.5–37; O2SAT 96–98
[2019-01-19 05:02] LABS: Absolute Neutrophil Count 3.7 X10^3/uL (2.0-7.7); Basophil# 0.02 X10^3/uL; Basophil% 0.3 % (0-1); Eosinophil# 0.16 X10^3/uL; Eosinophils% 2.4 % (0-5); Hematocrit 43.4 % (37-47); Hemoglobin 14.5 g/dL (12.0-15.0); Lymphocyte % 34.1 % (19-41); Mean Corp Hgb Conc 33.4 g/dL (32-36); Mean Corpuscular Hgb 30.7 pg (27.0-32.0); Mean Corpuscular Volume 91.8 fL (81-99); Mean Platelet Vol. 9.8 fl (6.2-12.0); Monocyte# 0.53 X10^3/uL; Monocyte% 7.9 % (0-10); NRBC Flagged by Analyzer 0 % (0-5); Neutrophil # 3.71 X10^3/uL (2.7-7.7); Platelet Count 241 K/mm3 (150-450); RBC Distribution Width SD 40.8 fl (35.1-43.9); Red Blood Count 4.73 M/mm3 (4.2-5.4); White Blood Count 6.7 K/mm3 (4.4-11.0)
[2019-01-19] MEDS: Levothyroxine 88 MCG Tablet PO (05:16)
[2019-01-19 05:30] LABS: Anion Gap 7 (5-15); BUN 15 mg/dL (7-18); BUN/Creat Ratio 25.2 RATIO (10-20); Calcium,Total 8.8 mg/dL (8.5-10.1); Chloride 108 mmol/L (98-107); EST Glomerular Filtration Rate 104 mL/min (>60); Est Glom Filt Rate - Afr Amer 126 mL/min (>60); Estimated Creatinine Clearance 45.89 ml/min; Glucose 89 mg/dL (74-106); Magnesium 2.1 mg/dL (1.6-2.6); Potassium 3.8 mmol/L (3.5-5.1); Sodium Level 138 mmol/L (136-145)
--- NOTE | 2019-01-19 05:55 | EKG12_ITS ---
Test Reason : AM EKG Blood Pressure : / mmHG Vent. Rate : 064 BPM Atrial Rate : 064 BPM P-R Int : 142 ms QRS Dur : 082 ms QT Int : 396 ms P-R-T Axes : 063 060 054 degrees QTc Int : 408 ms Normal sinus rhythm Normal ECG When compared with ECG of 18-JAN-2019 09:08, MANUAL COMPARISON REQUIRED, DATA IS UNCONFIRMED Confirmed by ALEXANDRO LANG, PRAVEENA ([id number]), supervising editor trailer LIAM GREENE ([id number]) on 01/20/2019 2:54:07 PM Referred By: Ammon Zavala Confirmed By:PRAVEENA MC MD
[2019-01-19] MEDS: Fludrocortisone Acetate 0.1 MG Tablet PO (08:36)
[2019-01-19] MEDS: Gemfibrozil 600 MG Tablet PO ×2 (08:36→21:35)
[2019-01-19] MEDS: Ezetimibe 10 MG Tablet PO (08:36)
[2019-01-19] MEDS: Lisinopril 5 MG Tablet PO (08:36)
[2019-01-19] MEDS: Gabapentin 400 MG Capsule PO ×2 (08:36→21:35)
[2019-01-19] MEDS: Aspirin 81 MG TAB.CHEW PO (08:37)
[2019-01-19] MEDS: Clopidogrel Bisulfate 75 MG Tablet PO (08:37)
[2019-01-19] MEDS: Pantoprazole Sodium 40 MG Tablet PO (08:37)
[2019-01-19] MEDS: predniSONE 5 MG Tablet 7.5 MG PO (08:42)
--- NOTE | 2019-01-19 08:48 | PN_ITS ---
Patient Problems: Active and Suspected Problems (Last Reviewed 01/18/19 @ 11:33 by Ammon Zavala MD) Chest pain (Acute) Unstable angina pectoris due to coronary arteriosclerosis (Acute) Reason for Visit: Follow-up unstable angina Subjective: She is scheduled to undergo left heart catheterization with possible intervention if needed Objective: GENERAL: cooperative HEENT: Atraumatic; EYES; Anicteric, Normal Conjunctiva NECK; supple, normal thyroid, RESPIRATORY: Diminished to auscultation CARDIOVASCULAR: Regular S1 S2, GI: soft, normoactive bowel sounds, : No Renal angle tenderness; EXTREMITIES: No edema, no clubbing, MUSCULOSKELETAL: no muscle waisting NEURO: Awake; no lateralizing signs. SKIN: No Rash PSYCH; Flat affect Vitals/I&O's: Vital Signs Temp Pulse Resp BP Pulse Ox 97.7 F L 66 16 117/60 98 01/19/19 08:35 01/19/19 08:35 01/19/19 08:35 01/19/19 08:35 01/19/19 08:35 Oxygen Delivery Method Room Air Weight: 59.8 kg Body Mass Index (BMI) 26.6 Intake and Output for Last 24 Hours 01/17/19 01/18/19 01/19/19 23:59 23:59 23:59 Intake Total 922.5 / 922.5 Balance 922.5 / 922.5 Laboratory Results 01/18/19 09:13: WBC 7.0, RBC 4.60, Hgb 14.1, Hct 42.5, MCV 92.4, MCH 30.7, MCHC 33.2, RDW Std Deviation 41.8, RDW Coeff of Asher 12.2, Plt Count 253, MPV 9.8, Immature Gran % (Auto) 0.600, Neut % (Auto) 41.6 L, Lymph % (Auto) 46.0 H, Richardson % (Auto) 8.2, Eos % (Auto) 3.0, Baso % (Auto) 0.6, Absolute Neuts (auto) 2.9, Absolute Lymphs (auto) 3.20, Nucleated RBC % 0 01/18/19 09:13: Sodium 140, Potassium 3.7, Chloride 108 H, Carbon Dioxide 25.0, Anion Gap 7, BUN 14, Creatinine 0.67, Estim Creat Clear Calc 47.65, Est GFR (MDRD) Af Amer 110, Est GFR (MDRD) Non-Af 91, BUN/Creatinine Ratio 20.8 H, Glucose 89, Calcium 8.9, Troponin I < 0.015 01/18/19 13:00: Troponin I < 0.015 01/18/19 15:35: Troponin I < 0.015 01/19/19 04:42: WBC 6.7, RBC 4.73, Hgb 14.5, Hct 43.4, MCV 91.8, MCH 30.7, MCHC 33.4, RDW Std Deviation 40.8, RDW Coeff of Asher 12.0, Plt Count 241, MPV 9.8, Immature Gran % (Auto) 0.300, Neut % (Auto) 55.0, Lymph % (Auto) 34.1, Richardson % (Auto) 7.9, Eos % (Auto) 2.4, Baso % (Auto) 0.3, Absolute Neuts (auto) 3.7, Absolute Lymphs (auto) 2.30, Nucleated RBC % 0 01/19/19 04:42: Sodium 138, Potassium 3.8, Chloride 108 H, Carbon Dioxide 23.0, Anion Gap 7, BUN 15, Creatinine 0.60, Estim Creat Clear Calc 45.89, Est GFR (MDRD) Af Amer 126, Est GFR (MDRD) Non-Af 104, BUN/Creatinine Ratio 25.2 H, Glucose 89, Calcium 8.8, Magnesium 2.1 Current Medications Acetaminophen (Tylenol) 650 mg PO Q6H PRN PRN PRN Reason: Pain Score 1-3/Temp > 100.7 F Last Admin: 01/18/19 22:35 Dose: 650 mg Documented by: Al Hydroxide/Mg Hydroxide (Mylanta Ii) 30 ml PO Q6H PRN PRN PRN Reason: Gastric Burning Albuterol Sulfate (Ventolin Aerosols) 2.5 mg INHALATION Q2H PRN PRN PRN Reason: SOB/Wheezing Aspirin (Aspirin, Baby) 81 mg PO DAILY@0800 [facility] Last Admin: 01/19/19 08:37 Dose: 81 mg Documented by: Clopidogrel Bisulfate (Plavix) 75 mg PO DAILY [facility] Last Admin: 01/19/19 08:37 Dose: 75 mg Documented by: Dextrose (D50w Syringe) 0 gm IV X1 PRN; Protocol PRN Reason: Hypoglycemia Ezetimibe (Zetia) 10 mg PO DAILY [facility] Last Admin: 01/19/19 08:36 Dose: 10 mg Documented by: Enoxaparin Sodium (Lovenox) 60 mg SC Q12 [facility] Last Admin: 01/19/19 06:39 Dose: Not Given Documented by: Fludrocortisone Acetate (Florinef) 0.1 mg PO DAILY [facility] Last Admin: 01/19/19 08:36 Dose: 0.1 mg Documented by: Gabapentin (Neurontin) 400 mg PO BID [facility] Last Admin: 01/19/19 08:36 Dose: 400 mg Documented by: Gemfibrozil (Lopid) 600 mg PO BID [facility] Last Admin: 01/19/19 08:36 Dose: 600 mg Documented by: Glucagon () 1 mg IM .X1 PRN PRN Reason: Hypoglycemia Guaifenesin (Robitussin) 20 ml PO Q4H PRN PRN PRN Reason: COUGH Sodium Chloride () 1,000 mls @ 0 mls/hr IV .Q0M KYLAH Sodium Chloride () 250 mls @ 15 mls/hr IV .[id number] PRN PRN Reason: Saline Flush Levothyroxine Sodium (Synthroid) 44 mcg PO Roberts@0600 [facility] Levothyroxine Sodium (Synthroid) 88 mcg PO MoTuWeThFrSa@0600 [facility] Last Admin: 01/19/19 05:16 Dose: 88 mcg Documented by: Lisinopril (Zestril) 5 mg PO DAILY [facility] Last Admin: 01/19/19 08:36 Dose: 5 mg Documented by: Magnesium Hydroxide (Milk Of Magnesia) 30 ml PO DAILY PRN PRN PRN Reason: Constipation Melatonin (Melatonin) 3 mg PO QHS PRN PRN PRN Reason: INSOMNIA Last Admin: 01/18/19 23:49 Dose: 3 mg Documented by: Nitroglycerin (Nitrostat) 0.4 mg SUBLINGUAL Q5M PRN PRN Reason: CHEST PAIN Ondansetron HCl (Zofran) 4 mg IV Q8H PRN PRN PRN Reason: NAUSEA/VOMITING Oxycodone HCl (Oxyir) 5 mg PO Q4H PRN PRN PRN Reason: Pain Score 4-5/10 Oxycodone HCl (Oxyir) 10 mg PO Q4H PRN PRN PRN Reason: Pain Score 6-10/10 Pantoprazole Sodium (Protonix) 40 mg PO DAILY [facility] Last Admin: 01/19/19 08:37 Dose: 40 mg Documented by: [facility] () [facility] Last Admin: 01/19/19 08:42 Dose: 7.5 mg Documented by: Sodium Chloride () 10 - 40 ml IV UD PRN PRN Reason: SALINE FLUSH STROKE Vital Signs/Narrative: Vital Signs Temp Pulse Resp BP Pulse Ox 01/19/19 08:35 97.7 F L 66 16 117/60 98 01/19/19 06:58 98 01/19/19 06:52 76 Medical Necessity - Tobacco Use Smoking Status: Former smoker Assessment/Plan All Active Problems (Last Reviewed 01/18/19 @ 11:33 by Ammon Zavala MD) Chest pain (Acute) Unstable angina pectoris due to coronary arteriosclerosis (Acute) Postmenopausal bleeding (Resolved) Encounter for pessary maintenance (Resolved) History of hysterectomy (Resolved) History of tonsillectomy (Resolved) Joint removal bilateral great toe (Resolved) History of polycythemia vera (Resolved) History of polycythemia (Resolved) Iron deficiency (Resolved) Gammopathy (Resolved) Abnormal stress test (Resolved) Acquired polycythemia (Resolved) Chest pain (Resolved) Lightheadedness (Resolved) Shortness of breath (Resolved) Patient is a 73-year-old lady presented with chest pain 1. Unstable angina ?Patient presented with chest pain admitted to monitored bed serial cardiac enzymes ordered to rule out IN. Patient was scheduled to undergo an elective left heart catheterization on 01/19/2019. Consult placed to cardiology. Decision for patient to have the procedure deferred. Patient was however started on aspirin low molecular weight heparin patient was not started on statin therapy apparently has allergies ?01/19/2019; scheduled to undergo left heart catheterization 2 CAD ~with previous angioplasty and stent placement in the mid LAD lesion on 03/22/2016 3. Hypothyroidism ~patient is on levothyroxine home dose continued 4. 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 DVT prophylaxis ~ on enoxaparin Active Medications Acetaminophen (Tylenol) 650 mg PO Q6H PRN PRN PRN Reason: Pain Score 1-3/Temp > 100.7 F Last Admin: 01/18/19 22:35 Dose: 650 mg Documented by: Al Hydroxide/Mg Hydroxide (Mylanta Ii) 30 ml PO Q6H PRN PRN PRN Reason: Gastric Burning Albuterol Sulfate (Ventolin Aerosols) 2.5 mg INHALATION Q2H PRN PRN PRN Reason: SOB/Wheezing Aspirin (Aspirin, Baby) 81 mg PO DAILY@0800 [facility] Last Admin: 01/19/19 08:37 Dose: 81 mg Documented by: Clopidogrel Bisulfate (Plavix) 75 mg PO DAILY [facility] Last Admin: 01/19/19 08:37 Dose: 75 mg Documented by: Dextrose (D50w Syringe) 0 gm IV X1 PRN; Protocol PRN Reason: Hypoglycemia Ezetimibe (Zetia) 10 mg PO DAILY [facility] Last Admin: 01/19/19 08:36 Dose: 10 mg Documented by: Enoxaparin Sodium (Lovenox) 60 mg SC Q12 [facility] Last Admin: 01/19/19 06:39 Dose: Not Given Documented by: Fludrocortisone Acetate (Florinef) 0.1 mg PO DAILY [facility] Last Admin: 01/19/19 08:36 Dose: 0.1 mg Documented by: Gabapentin (Neurontin) 400 mg PO BID [facility] Last Admin: 01/19/19 08:36 Dose: 400 mg Documented by: Gemfibrozil (Lopid) 600 mg PO BID [facility] Last Admin: 01/19/19 08:36 Dose: 600 mg Documented by: Glucagon () 1 mg IM .X1 PRN PRN Reason: Hypoglycemia Guaifenesin (Robitussin) 20 ml PO Q4H PRN PRN PRN Reason: COUGH Sodium Chloride () 1,000 mls @ 0 mls/hr IV .Q0M [facility] Sodium Chloride () 250 mls @ 15 mls/hr IV .[id number] PRN PRN Reason: Saline Flush Levothyroxine Sodium (Synthroid) 44 mcg PO Roberts@0600 [facility] Levothyroxine Sodium (Synthroid) 88 mcg PO MoTuWeThFrSa@0600 [facility] Last Admin: 01/19/19 05:16 Dose: 88 mcg Documented by: Lisinopril (Zestril) 5 mg PO DAILY [facility] Last Admin: 01/19/19 08:36 Dose: 5 mg Documented by: Magnesium Hydroxide (Milk Of Magnesia) 30 ml PO DAILY PRN PRN PRN Reason: Constipation Melatonin (Melatonin) 3 mg PO QHS PRN PRN PRN Reason: INSOMNIA Last Admin: 01/18/19 23:49 Dose: 3 mg Documented by: Nitroglycerin (Nitrostat) 0.4 mg SUBLINGUAL Q5M PRN PRN Reason: CHEST PAIN Ondansetron HCl (Zofran) 4 mg IV Q8H PRN PRN PRN Reason: NAUSEA/VOMITING Oxycodone HCl (Oxyir) 5 mg PO Q4H PRN PRN PRN Reason: Pain Score 4-5/10 Oxycodone HCl (Oxyir) 10 mg PO Q4H PRN PRN PRN Reason: Pain Score 6-10/10 Pantoprazole Sodium (Protonix) 40 mg PO DAILY [facility] Last Admin: 01/19/19 08:37 Dose: 40 mg Documented by: Prednisone () 7.5 mg PO DAILYCM [facility] Last Admin: 01/19/19 08:42 Dose: 7.5 mg Documented by: Sodium Chloride () 10 - 40 ml IV UD PRN PRN Reason: SALINE FLUSH Clinical Impression(s) from Imaging Studies Chest X-Ray 01/18/19 09:23 IMPRESSION: Stable chest no evidence of acute focal infiltrate. Electronically Signed: Sallie Barraza MD at 9:59 EST Tel , Service support , Code Visit OBSV E&M: [id number] Subsequent observation care L3
[2019-01-19] MEDS: 0.9% Normal Saline 1,000 ML 75 ML IV ×2 (10:40→23:43)
--- NOTE | 2019-01-19 11:11 | CASEMGMT ---
Case Management Progress Note: This investigative writer went to bedside and introduced self and role to patient and her . Explained and reviewed [facility] form with patient regarding current treatment for Chest Pain on this admission. Informed that Outpatient billing is determined by her insurance plan and current status is continually reviewed for any changes in condition that may warrant inpatient status. Patient acknowledged and states understanding and denies questions, concerns, or issues with the [facility]OM[facility] form at this time. Signed and placed in hard chart, patient provided a copy. Bren Larose RNCM
--- NOTE | 2019-01-19 16:03 | CASEMGMT ---
[facility], the following are in-network tertiary facilities: [facility], [place], [facility], [place], [facility], [facility], [place], [facility], and . Alfonzo ALLRED CM
[2019-01-19] MEDS: MELATONIN 3 MG TABLET PO (21:35)
[2019-01-19] MEDS: Enoxaparin 60 MG/0.6 ML Syringe SC (21:35)
[2019-01-20] VITALS (15 sets, daily range): BP systolic 106–139; BP diastolic 57–87; PULSE 72–86; RESP 14–18; TEMP 36.4–36.5; O2SAT 95–97
[2019-01-20 05:47] LABS: Anion Gap 8 (5-15); BUN 19 mg/dL (7-18); BUN/Creat Ratio 24.5 RATIO (10-20); Calcium,Total 8.7 mg/dL (8.5-10.1); Chloride 109 mmol/L (98-107); Creatinine, Serum 0.78 mg/dL (0.55-1.02); EST Glomerular Filtration Rate 77 mL/min (>60); Est Glom Filt Rate - Afr Amer 93 mL/min (>60); Estimated Creatinine Clearance 45.89 ml/min; Glucose 96 mg/dL (74-106); Sodium Level 140 mmol/L (136-145)
[2019-01-20 05:50] LABS: Absolute Lymphocyte Count 2.78 X10^3/uL (0.83-4.51); Absolute Neutrophil Count 3.1 X10^3/uL (2.0-7.7); Basophil# 0.03 X10^3/uL; Basophil% 0.5 % (0-1); Eosinophil# 0.18 X10^3/uL; Eosinophils% 2.7 % (0-5); Hematocrit 41.1 % (37-47); Hemoglobin 13.7 g/dL (12.0-15.0); Lymphocyte # 2.78 X10^3/ul (4.0); Lymphocyte % 42.4 % (19-41); Mean Corp Hgb Conc 33.3 g/dL (32-36); Mean Corpuscular Hgb 30.5 pg (27.0-32.0); Mean Corpuscular Volume 91.5 fL (81-99); Mean Platelet Vol. 9.8 fl (6.2-12.0); Monocyte% 7.6 % (0-10); NRBC Flagged by Analyzer 0 % (0-5); Neutrophil # 3.05 X10^3/uL (2.7-7.7); Neutrophil % 46.6 % (47-70); Platelet Count 234 K/mm3 (150-450); RBC Distribution Width CV 12.3 % (11.6-14.6); RBC Distribution Width SD 41.2 fl (35.1-43.9); Red Blood Count 4.49 M/mm3 (4.2-5.4); White Blood Count 6.6 K/mm3 (4.4-11.0)
--- NOTE | 2019-01-20 05:55 | EKG12_ITS ---
Test Reason : AM EKG Blood Pressure : / mmHG Vent. Rate : 067 BPM Atrial Rate : 067 BPM P-R Int : 146 ms QRS Dur : 082 ms QT Int : 368 ms P-R-T Axes : 063 053 055 degrees QTc Int : 388 ms Normal sinus rhythm Normal ECG When compared with ECG of 19-JAN-2019 05:35, MANUAL COMPARISON REQUIRED, DATA IS UNCONFIRMED Confirmed by JARRELL MORA ([id number]), tape editor MARICEL SKELTON ([id number]) on 01/25/2019 10:54:50 AM Referred By: Ammon Zavala Confirmed By:JARRELL MORA
[2019-01-20 05:56] LABS: Prothrombin Time (Protime)PT. 13.4 SECONDS (11.7-14.9)
[2019-01-20 05:57] LABS: Partial Thromboplast Time 35.5 Seconds (24.1-36.2)
[2019-01-20] MEDS: Levothyroxine 88 MCG Tablet PO (06:23)
[2019-01-20] MEDS: Aspirin 81 MG TAB.CHEW PO (06:23)
[2019-01-20] MEDS: predniSONE 5 MG Tablet 7.5 MG PO (06:23)
[2019-01-20] MEDS: Fludrocortisone Acetate 0.1 MG Tablet PO (06:24)
[2019-01-20] MEDS: Gabapentin 400 MG Capsule PO (06:25)
[2019-01-20] MEDS: Lisinopril 5 MG Tablet PO (06:25)
[2019-01-20] MEDS: Ezetimibe 10 MG Tablet PO (06:25)
[2019-01-20] MEDS: Gemfibrozil 600 MG Tablet PO (06:25)
[2019-01-20] MEDS: Clopidogrel Bisulfate 75 MG Tablet PO (06:25)
[2019-01-20] MEDS: Pantoprazole Sodium 40 MG Tablet PO (06:25)
--- NOTE | 2019-01-20 07:54 | CL.D_ITS ---
Patient Name: FABIANO SOLANO Study Date: 01/20/2019 Performing: Shawn Rodriguez MD Ht: 59.05 inches 150 cm : 1945 Wt: 132.28 lbs 60 kg Age: 73 Gender: female BSA: 1.55 PROCEDURE(S) PERFORMED [id number] CLINICAL PROFILE AND INDICATIONS Indications: New Onset Angina <= 2 months, Stable Known CAD Heart Failure: None Stress/Imaging Date: 01/07/2019Stress Echocardiogram: Negative Angina Classification Anginal Classification w/in 2 Weeks: CCS II CAD Presentations: Unstable angina. Other: Dyspnea on exertion Comorbidities/Risk Factors: Hypertension Dyslipidemia Prior PCI CONCLUSIONS Non obstructive coronary arteries Normal LV size, wall motion,and systolic function Normal Left Ventricular systolic function LVEF: by LV gram 75 % Elevated Left Ventricular End Diastolic Pressure RECOMMENDATIONS Management as per referring Inspector And Clerk Start verapamil CD 120mg po daily for HTN and LVH/tachycardia. Manual sheath removal. Discussed results with Dr. Zavala. DESCRIPTION OF PROCEDURE The patient arrived to the procedure lab. The risks and benefits of the procedure as well as a full d escription of our services here and current unavailability of surgical backup were fully explained to the patient and/or their significant other prior to the catheterization. The Timeout was completed, verifying the correct patient and procedure. The patient's procedural site was prepped and draped in the usual fashion. Local anesthetic was given subcutaneously to right groin region with Lidocaine 2%. Using a modified Seldinger technique, arterial access was obtained via the right femoral artery, a 4 Fr sheath was inserted Left Coronary Artery selective angiography was performed in multiple views us ing a 4 Fr. JL5 catheter. Right Coronary Artery selective angiography was then performed in multiple views using a 4 Fr. 3DRC catheter. Left Ventriculography was performed in SEBASTIAN projection using a 4 Fr . Pigtail catheter. LV to AO pullback pressures were then recorded.The arterial sheath was pulled and manual compression applied until hemostasis is achieved. CORONARY ANGIOGRAPHY DOMINANCE: Right Dominant LEFT HEART ASSESSMENT Left Ventricular Ejection Fraction: by LV Gram 75 % Normal LV wall motion Normal Left Ventricular systolic function LVEDP: 22 mmHg Elevated Left Ventricular End Diastolic Pressure LEFT MAIN: Angiographically normal LEFT ANTERIOR DESCENDING ARTERY: PROX LAD: Mild luminal irregularities less than 30% MID LAD: Previously placed stent is patent CIRCUMFLEX ARTERY: Non-obstructive RIGHT CORONARY ARTERY: Angiographically normal COMPLICATIONS No Complications PROCEDURE MEDICATIONS Oxygen: 2 L/min via nasal cannula Benadryl 25 mg IV @ 01/20/2019 07:27:05 Pepcid 20 mg IV 01/20/2019 07:37:05 SUMMARY OF HEMODYNAMIC DATA Time AIR REST ECG 07:05:10 AO 151/70 (100) SA 07:33:25 LV 147/-10, 25 07:38:37 LV 149/-16, 19 07:38:44 LVp 148/-16, 16 07:38:50 AOp 155/73 (109) 07:38:56 Signed By Shawn Rodriguez MD On 01/20/2019 07:53:51 Shawn Rodriguez MD
[2019-01-20] MEDS: 0.9% Normal Saline 1,000 ML 150 ML IV (08:42)
--- NOTE | 2019-01-20 08:45 | PCM.DC ---
- Discharge Diagnoses Current Active Problems: Current Active and Chronic Problems (Last Reviewed 01/18/19 @ 11:33 by Ammon Zavala MD) Chest pain (Acute) Unstable angina pectoris due to coronary arteriosclerosis (Acute) You will use the following diet at home:: Cardiac Your food should be the consistency of: Regular Discharge Activity: Return to Normal Activity Allergies/Adverse Reactions: Allergies iodine Allergy (Severe, Verified 01/18/19 09:08) Rash ticagrelor [From Brilinta] Allergy (Severe, Verified 01/18/19 09:08) Shortness of breath amitriptyline Allergy (Unknown, Verified 01/18/19 09:08) Other house dust mite Allergy (Verified 01/18/19 09:08) uknown atorvastatin [From Lipitor] Adverse Reaction (Intermediate, Verified 01/18/19 09:08) Pain in joints rosuvastatin calcium [From Crestor] Adverse Reaction (Intermediate, Verified 01/18/19 09:08) Pain in joints metoprolol [From Toprol XL] Adverse Reaction (Verified 01/18/19 09:08) gi upset pramipexole [From Mirapex] Adverse Reaction (Verified 01/18/19 09:08) Low blood pressure Fainted simvastatin [From Vytorin 10-10] Adverse Reaction (Verified 01/18/19 09:08) Pain in joints listed on pcp chart bee sting Allergy (Uncoded 01/18/19 09:08) Anaphylaxis Medications to take at Discharge Fludrocortisone Acetate [Florinef] 0.1 mg PO DAILY 04/01/13 Multivitamins,Therapeutic [Multivitamin] 1 tab PO DAILY 04/01/13 Omeprazole [Prilosec] 40 mg PO DAILY 04/01/13 Nitroglycerin (INPATIENT USE) [Nitrostat] 0.4 mg SUBLINGUAL Q5M PRN #25 tab 03/22/16 Aspirin [Aspirin, Baby] 81 mg PO DAILY@0800 03/25/16 epinephrine 0.3 mg/0.3 mL injection, auto-injector 0.3 ml IM ONCE 06/23/18 Biotin 10,000 mcg PO DAILY 11/06/18 Lisinopril 5 mg PO DAILY 11/06/18 ezetimibe 10 mg tablet 10 mg PO QDAY #90 tab 12/22/18 gemfibrozil 600 mg tablet 600 mg PO BID #180 tab 12/22/18 levothyroxine 88 mcg tablet 88 mcg PO MOTUWETHFRSA 12/23/18 mecobalamin (vitamin B12) 1,000 mcg disintegrating tablet,sublingual 1,000 mcg SUBLINGUAL MOWEFR tab 12/23/18 prednisone 5 mg tablet 7.5 mg PO DAILY tab 12/23/18 Cholecalciferol (VIT D3) [Vitamin D3] 5,000 unit PO DAILY 01/18/19 Flaxseed Oil 1,000 mg PO DAILY 01/18/19 Gabapentin [Neurontin] 1,200 mg PO QHS 01/18/19 Levothyroxine [Synthroid] 44 mcg PO MIRANDA 01/18/19 acapella 1 applic PO BID 01/18/19 Verapamil HCl [Calan Sr] 120 mg PO DAILY #60 tablet.er 01/20/19 The following prescriptions were given: Verapamil HCl [Calan Sr] 120 mg PO DAILY #60 tablet.er Transmission Status: Received by [facility]/pharmacy #[id number] Primary Care Physician: Saeed Griffith III, MD [Primary Care Provider] - Please follow up with your Primary Care Physician in: in 1 week Test Results: Test results from this visit will be discussed in further detail at your follow-up appointment, if applicable. Please Follow Up With: Shawn Rodriguez MD When: as scheduled Proposed Discharge Date: 01/20/19
--- NOTE | 2019-01-20 08:51 | DS.PCM_ITS ---
Discharge Date and Diagnosis - Problem List Patient Problems: Active and Suspected Problems (Last Reviewed 01/18/19 @ 11:33 by Ammon Zavala MD) Chest pain (Acute) Unstable angina pectoris due to coronary arteriosclerosis (Acute) Date of Admission: 01/18/19 Date of Discharge: 01/20/19 - Primary Discharge Diagnosis Active and Suspected Problems (Last Reviewed 01/18/19 @ 11:33 by Ammon Zavala MD) Chest pain (Acute) Unstable angina pectoris due to coronary arteriosclerosis (Acute) - Secondary Discharge Diagnosis Chronic Problems (Last Reviewed 01/18/19 @ 11:33 by Ammon Zavala MD) Coronary artery disease (Chronic) Bronchiectasis (Chronic) Osteoporosis (Chronic) Thyroid disease (Chronic) [place]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 Electronically Signed: Sallie Barraza MD at 9:59 EST Tel , Service support , Summary of Care Provided: Patient is a 73-year-old lady presented with chest pain 1. Unstable angina ?Patient presented with chest pain admitted to monitored bed serial cardiac enzymes ordered to rule out OR. Patient was scheduled to undergo an elective left heart catheterization on 01/19/2019. Consult placed to cardiology. Decision for patient to have the procedure deferred. Patient was however started on aspirin low molecular weight heparin patient was not started on statin therapy apparently has allergies ?01/19/2019; scheduled to undergo left heart catheterization ~02/06/2019 patient underwent left heart catheterization which demonstrated patent stent. Dr. Rodriguez recommended addition of verapamil CD 120 mg to patient treatment regimen to control her heart rate. 2 CAD ~with previous angioplasty and stent placement in the mid LAD lesion on 03/22/2016 3. Hypothyroidism ~patient is on levothyroxine home dose continued 4. 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 DVT prophylaxis ~ on enoxaparin Patient Problems: Active and Suspected Problems (Last Reviewed 01/18/19 @ 11:33 by Ammon Zavala MD) Chest pain (Acute) Unstable angina pectoris due to coronary arteriosclerosis (Acute) Objective: GENERAL: cooperative HEENT: Atraumatic; EYES; Anicteric, Normal Conjunctiva NECK; supple, normal thyroid, RESPIRATORY: Diminished to auscultation CARDIOVASCULAR: Regular S1 S2, GI: soft, normoactive bowel sounds, : No Renal angle tenderness; EXTREMITIES: No edema, no clubbing, MUSCULOSKELETAL: no muscle waisting NEURO: Awake; no lateralizing signs. SKIN: No Rash PSYCH; Flat affect - Physical Exam Vitals/I&O's: Vital Signs Temp Pulse Resp BP Pulse Ox 97.6 F L 76 16 136/76 H 95 01/20/19 06:30 01/20/19 08:50 01/20/19 08:50 01/20/19 08:50 01/20/19 08:50 Oxygen Delivery Method Room Air Weight: 59.8 kg Body Mass Index (BMI) 26.6 Intake and Output for Last 24 Hours 01/18/19 01/19/19 01/20/19 23:59 23:59 23:59 Intake Total 922.5 / 922.5 2159.50 / 2159.50 645 / 645 Balance 922.5 / 922.5 2159.50 / 2159.50 645 / 645 Laboratory Results 01/20/19 05:18: WBC 6.6, RBC 4.49, Hgb 13.7, Hct 41.1, MCV 91.5, MCH 30.5, MCHC 33.3, RDW Std Deviation 41.2, RDW Coeff of Asher 12.3, Plt Count 234, MPV 9.8, Immature Gran % (Auto) 0.200, Neut % (Auto) 46.6 L, Lymph % (Auto) 42.4 H, [place] % (Auto) 7.6, Eos % (Auto) 2.7, Baso % (Auto) 0.5, Absolute Neuts (auto) 3.1, Absolute Lymphs (auto) 2.78, Nucleated RBC % 0 01/20/19 05:18: PT 13.4, INR 1.0, APTT 35.5 01/20/19 05:18: Sodium 140, Potassium 4.0, Chloride 109 H, Carbon Dioxide 23.0, Anion Gap 8, BUN 19 H, Creatinine 0.78, Estim Creat Clear Calc 45.89, Est GFR (MDRD) Af Amer 93, Est GFR (MDRD) Non-Af 77, BUN/Creatinine Ratio 24.5 H, Glucose 96, Calcium 8.7 Current Medications Acetaminophen (Tylenol) 650 mg PO Q6H PRN PRN PRN Reason: Pain Score 1-3/Temp > 100.7 F Last Admin: 01/18/19 22:35 Dose: 650 mg Documented by: Al Hydroxide/Mg Hydroxide (Mylanta Ii) 30 ml PO Q6H PRN PRN PRN Reason: Gastric Burning Albuterol Sulfate (Ventolin Aerosols) 2.5 mg INHALATION Q2H PRN PRN PRN Reason: SOB/Wheezing Aspirin (Aspirin, Baby) 81 mg PO DAILY@0800 [facility] Last Admin: 01/20/19 06:23 Dose: 81 mg Documented by: Clopidogrel Bisulfate (Plavix) 75 mg PO DAILY [facility] Last Admin: 01/20/19 06:25 Dose: 75 mg Documented by: Dextrose (D50w Syringe) 0 gm IV X1 PRN; Protocol PRN Reason: Hypoglycemia Ezetimibe (Zetia) 10 mg PO DAILY [facility] Last Admin: 01/20/19 06:25 Dose: 10 mg Documented by: Fludrocortisone Acetate (Florinef) 0.1 mg PO DAILY [facility] Last Admin: 01/20/19 06:24 Dose: 0.1 mg Documented by: Gabapentin (Neurontin) 400 mg PO BID [facility] Last Admin: 01/20/19 06:25 Dose: 400 mg Documented by: Gemfibrozil (Lopid) 600 mg PO BID [facility] Last Admin: 01/20/19 06:25 Dose: 600 mg Documented by: Glucagon () 1 mg IM .X1 PRN PRN Reason: Hypoglycemia Guaifenesin (Robitussin) 20 ml PO Q4H PRN PRN PRN Reason: COUGH Heparin Sodium (Beef Lung) (Heparin 500 Unit/5 Ml (100/Ml)) 500 unit IV UD PRN PRN Reason: HEPARIN FLUSH Sodium Chloride () 250 mls @ 15 mls/hr IV .[id number] PRN PRN Reason: Saline Flush Sodium Chloride () 1,000 mls @ 15 mls/hr IV .Q48H [facility] Last Admin: 01/20/19 08:15 Dose: Not Given Documented by: Sodium Chloride () 1,000 mls @ 150 mls/hr IV .Q6H40M [facility] Stop: 01/20/19 12:14 Last Admin: 01/20/19 08:42 Dose: 150 mls/hr Documented by: Labetalol HCl (Trandate) 5 mg IV X1 PRN PRN Reason: SBP > 160 prior to sheath pull Stop: 01/22/19 07:44 Levothyroxine Sodium (Synthroid) 44 mcg PO Miranda@0600 [facility] Levothyroxine Sodium (Synthroid) 88 mcg PO MoTuWeThFrSa@0600 [facility] Last Admin: 01/20/19 06:23 Dose: 88 mcg Documented by: Lisinopril (Zestril) 5 mg PO DAILY [facility] Last Admin: 01/20/19 06:25 Dose: 5 mg Documented by: Magnesium Hydroxide (Milk Of Magnesia) 30 ml PO DAILY PRN PRN PRN Reason: Constipation Melatonin (Melatonin) 3 mg PO QHS PRN PRN PRN Reason: INSOMNIA Last Admin: 01/19/19 21:35 Dose: 3 mg Documented by: Nitroglycerin (Nitrostat) 0.4 mg SUBLINGUAL Q5M PRN PRN Reason: CHEST PAIN Ondansetron HCl (Zofran) 4 mg IV Q8H PRN PRN PRN Reason: NAUSEA/VOMITING Oxycodone HCl (Oxyir) 5 mg PO Q4H PRN PRN PRN Reason: Pain Score 4-5/10 Oxycodone HCl (Oxyir) 10 mg PO Q4H PRN PRN PRN Reason: Pain Score 6-10/10 Pantoprazole Sodium (Protonix) 40 mg PO DAILY [facility] Last Admin: 01/20/19 06:25 Dose: 40 mg Documented by: [facility] () [facility] Admin: 01/20/19 06:23 Dose: 7.5 mg Documented by: Sodium Chloride () 10 - 40 ml IV UD PRN PRN Reason: SALINE FLUSH Verapamil HCl (Calan Sr) 120 mg PO DAILY [facility] Discharge Diet: Low fat/ Low Cholesterol Discharge Activity: Return to Normal Activity Home Medications: Medications to take at Discharge Fludrocortisone Acetate [Florinef] 0.1 mg PO DAILY 04/01/13 Multivitamins,Therapeutic [Multivitamin] 1 tab PO DAILY 04/01/13 Omeprazole [Prilosec] 40 mg PO DAILY 04/01/13 Nitroglycerin (INPATIENT USE) [Nitrostat] 0.4 mg SUBLINGUAL Q5M PRN #25 tab 03/22/16 Aspirin [Aspirin, Baby] 81 mg PO DAILY@0800 03/25/16 epinephrine 0.3 mg/0.3 mL injection, auto-injector 0.3 ml IM ONCE 06/23/18 Biotin 10,000 mcg PO DAILY 11/06/18 Lisinopril 5 mg PO DAILY 11/06/18 ezetimibe 10 mg tablet 10 mg PO QDAY #90 tab 12/22/18 gemfibrozil 600 mg tablet 600 mg PO BID #180 tab 12/22/18 levothyroxine 88 mcg tablet 88 mcg PO MOTUWETHFRSA 12/23/18 mecobalamin (vitamin B12) 1,000 mcg disintegrating tablet,sublingual 1,000 mcg SUBLINGUAL MOWEFR tab 12/23/18 prednisone 5 mg tablet 7.5 mg PO DAILY tab 12/23/18 Cholecalciferol (VIT D3) [Vitamin D3] 5,000 unit PO DAILY 01/18/19 Flaxseed Oil 1,000 mg PO DAILY 01/18/19 Gabapentin [Neurontin] 1,200 mg PO QHS 01/18/19 Levothyroxine [Synthroid] 44 mcg PO MIRANDA 01/18/19 acapella 1 applic PO BID 01/18/19 Verapamil HCl [Calan Sr] 120 mg PO DAILY #60 tablet.er 01/20/19 Following Prescrptions Were Given to Patient: Verapamil HCl [Calan Sr] 120 mg PO DAILY #60 tablet.er Transmission Status: Received by [facility]/pharmacy #[id number] Primary Care Physician: Saeed Griffith III, MD [Primary Care Provider] - Please follow up with your Primary Care Physician in: in 1 week Please Follow Up With: Shawn Rodriguez MD When: as scheduled Disposition: Home Minutes spent on discharge:: 35 Patient Condition:: Stable Medical Necessity - Tobacco Use Smoking Status: Former smoker Meaningful Use Info Meaningful Use Diagnoses (Choose all that apply): None applicable Code Visit OBSV E&M: 34498 Observation care discharge
[2019-01-20] MEDS: Verapamil SR 240 MG Tablet 120 MG PO (10:05)
--- NOTE | 2019-01-20 11:59 | EKG12_ITS ---
Test Reason : Blood Pressure : / mmHG Vent. Rate : 079 BPM Atrial Rate : 079 BPM P-R Int : 154 ms QRS Dur : 080 ms QT Int : 358 ms P-R-T Axes : 054 053 054 degrees QTc Int : 410 ms Normal sinus rhythm Normal ECG When compared with ECG of 20-JAN-2019 05:40, MANUAL COMPARISON REQUIRED, DATA IS UNCONFIRMED Confirmed by JARRELL MORA ([id number]), supervising editor trailer MARICEL SKELTON ([id number]) on 01/25/2019 10:56:17 AM Referred By: Ammon Zavala Confirmed By:JARRELL MORA
[2019-01-20] MEDS: Acetaminophen 325 MG Tablet 650 MG PO (12:02)
--- NOTE | 2019-01-20 12:07 | NURSING ---
Finished breakfast and began c/o 4/10 chest pressure to L chest, nonradiating. Patient states feels similar to pain that brought her in. EKG ordered. Bedrest post cath complete. Dressing c/d/i. Ambulated in room. Will alert doctor
--- NOTE | 2019-01-20 12:23 | PHA.DC.MC ---
Pharmacy Service has performed discharge medication reconciliation and counseling for this patient. 1. VERAPAMIL SR 120MG PO DAILY The patient's discharge medication list was reviewed for discrepancies and discrepancies were resolved. Home Medications Fludrocortisone Acetate [Florinef] 0.1 mg PO DAILY 04/01/13 Multivitamins,Therapeutic [Multivitamin] 1 tab PO DAILY 04/01/13 Omeprazole [Prilosec] 40 mg PO DAILY 04/01/13 Nitroglycerin (INPATIENT USE) [Nitrostat] 0.4 mg SUBLINGUAL Q5M PRN #25 tab 03/22/16 Aspirin [Aspirin, Baby] 81 mg PO DAILY@0800 03/25/16 epinephrine 0.3 mg/0.3 mL injection, auto-injector 0.3 ml IM ONCE 06/23/18 Biotin 10,000 mcg PO DAILY 11/06/18 Lisinopril 5 mg PO DAILY 11/06/18 ezetimibe 10 mg tablet 10 mg PO QDAY #90 tab 12/22/18 gemfibrozil 600 mg tablet 600 mg PO BID #180 tab 12/22/18 levothyroxine 88 mcg tablet 88 mcg PO MOTUWETHFRSA 12/23/18 mecobalamin (vitamin B12) 1,000 mcg disintegrating tablet,sublingual 1,000 mcg SUBLINGUAL MOWEFR tab 12/23/18 prednisone 5 mg tablet 7.5 mg PO DAILY tab 12/23/18 Cholecalciferol (VIT D3) [Vitamin D3] 5,000 unit PO DAILY 01/18/19 Flaxseed Oil 1,000 mg PO DAILY 01/18/19 Gabapentin [Neurontin] 1,200 mg PO QHS 01/18/19 Levothyroxine [Synthroid] 44 mcg PO MIRANDA 01/18/19 acapella 1 applic PO BID 01/18/19 Verapamil HCl [Calan Sr] 120 mg PO DAILY #60 tablet.er 01/20/19 The patient was counseled on the following discharge medications and changes in medications for homegoing were reviewed. The Reason for Use, instructions for use, and potential side effects were reviewed for all new medications. The patient's questions regarding all of their medications were answered. The patient was able to verbally demonstrate an understanding of their discharge medications.
== END 2019-01-20 08:49 | disposition home or self-care (01) ==
LOC: ED 11:30 → PCU 11:55
PROVIDERS: Family Medicine; Admitting Provider Internal Medicine; Emergency Provider Emergency Medicine; Family Provider Family Medicine; PCP Family Medicine; Referring Provider Internal Medicine; Visit Provider Internal Medicine
DX: I25.110 Atherosclerotic heart disease of native coronary artery with unstable angina pectoris (principal); I25.2 Old myocardial infarction; I10 Essential (primary) hypertension; E78.5 Hyperlipidemia, unspecified; Z87.891 Personal history of nicotine dependence; E27.1 Primary adrenocortical insufficiency; R06.02 Shortness of breath; K21.9 Gastro-esophageal reflux disease without esophagitis; M19.90 Unspecified osteoarthritis, unspecified site; G25.81 Restless legs syndrome; G62.9 Polyneuropathy, unspecified; Z79.899 Other long term (current) drug therapy; Z79.82 Long term (current) use of aspirin; Z79.52 Long term (current) use of systemic steroids; E03.9 Hypothyroidism, unspecified; D45 Polycythemia vera
CPT/HCPCS: 36415; 71045; 80048; 83735; 84484; 85025; 85610; 85730; 93005; 93458; 96360; 96361; 96372; 99218; 99251; 99285; J7030; A4216; C1769; C1894; G0378; G0463; Q9967

== ENCOUNTER → 2019-02-23 12:42 | Outpatient (CLI) | payer MEDICARE, SELFPAY ==
[2016-03-22 09:58] VITALS: BMI 23.0
[2019-01-29 12:52] VITALS: BMI 25.7
== END ==
PROVIDERS: PCP Family Medicine; Referring Provider Nurse Practitioner Acute Care; Visit Provider Nurse Practitioner Acute Care
DX: G47.00 Insomnia, unspecified (principal)
CPT/HCPCS: 94762

== ENCOUNTER → 2019-03-05 10:13 | Outpatient (CLI) | payer MEDICARE, SELFPAY ==
[2016-03-22 09:58] VITALS: BMI 23.0
[2019-03-04 10:52] VITALS: BMI 25.7
== END ==
PROVIDERS: PCP Family Medicine; Referring Provider Internal Medicine Critical Care Medicine; Visit Provider Internal Medicine Critical Care Medicine
DX: J47.9 Bronchiectasis, uncomplicated (principal)
CPT/HCPCS: 87015; 87070; 87116; 87205; 87206

== ENCOUNTER 2019-03-06 16:46 | Emergency (ER) | payer MEDICARE, SELFPAY ==
[2016-03-22 09:58] VITALS: BMI 23.0
[2019-03-04 10:52] VITALS: BMI 25.7
[2019-03-06 16:47] VITALS: BP 123/60; PULSE 85; RESP 16; TEMP 35.9; O2SAT 96
[2019-03-06 16:48] VITALS: BP 123/60; PULSE 88; RESP 16; TEMP 35.9; O2SAT 97; BMI 26.6
--- NOTE | 2019-03-06 17:25 | CT_ITS ---
STUDY: CTA CHEST REASON FOR EXAM: Female, 74 years old. INCREASED SOB, H/O PNEUMONIA. 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 H/O BLOOD CLOT. RADIATION DOSAGE (If Supplied By Facility): CTDIvol = ( 5.19 ) mGy, DLP = ( 227.03 ) mGycm TECHNIQUE: The examination was performed with the intravenous administration of IV 75 ML ISOVUE 370. Post-processing of the angiographic images was performed, with multiplanar reformation and 3D reconstruction. Individualized dose optimization techniques were used for this CT. COMPARISON: CT chest March 28, 2016 FINDINGS: Normal enhancement of the main pulmonary artery and right and left pulmonary arteries. Normal enhancement of the bilateral peripheral pulmonary arteries. There is no demonstrated pulmonary embolism. Normal thoracic aorta and visualized great vessels. There is no demonstrated aortic dissection. Normal heart and pericardium. Normal mediastinum. Normal hilar regions. Normal visualized trachea and bronchi. The lungs are well expanded. There is a left lower lobe superior segment consolidation, new from prior. Mild areas of edema and/or atelectasis are present. Normal pleura. Normal chest wall structures. Normal osseous structures. Normal visualized upper abdomen. CT/CTA Chest W/WO Contrast IMPRESSION: No evidence of pulmonary embolus. Left lower lobe superior segment consolidation, new from prior. Electronically Signed: Javy Archuleta, at 18:37 EST Tel , Service support ,
[2019-03-06 17:43] LABS: Absolute Lymphocyte Count 1.82 X10^3/uL (0.83-4.51); Absolute Neutrophil Count 8.1 X10^3/uL (2.0-7.7); Basophil# 0.02 X10^3/uL; Basophil% 0.2 % (0-1); Eosinophil# 0.03 X10^3/uL; Eosinophils% 0.3 % (0-5); Hematocrit 42.8 % (37-47); Lymphocyte # 1.82 X10^3/ul (4.0); Lymphocyte % 17.2 % (19-41); Mean Corp Hgb Conc 32.7 g/dL (32-36); Mean Corpuscular Hgb 29.7 pg (27.0-32.0); Mean Corpuscular Volume 90.9 fL (81-99); Mean Platelet Vol. 9.4 fl (6.2-12.0); Monocyte# 0.57 X10^3/uL; Monocyte% 5.4 % (0-10); NRBC Flagged by Analyzer 0 % (0-5); Neutrophil # 8.08 X10^3/uL (2.7-7.7); Neutrophil % 76.3 % (47-70); Platelet Count 307 K/mm3 (150-450); RBC Distribution Width CV 12.6 % (11.6-14.6); RBC Distribution Width SD 40.9 fl (35.1-43.9); Red Blood Count 4.71 M/mm3 (4.2-5.4); White Blood Count 10.6 K/mm3 (4.4-11.0)
[2019-03-06 17:56] LABS: Anion Gap 5 (5-15); BUN 19 mg/dL (7-18); BUN/Creat Ratio 20.5 RATIO (10-20); Calcium,Total 9.7 mg/dL (8.5-10.1); Chloride 104 mmol/L (98-107); Creatinine, Serum 0.93 mg/dL (0.55-1.02); EST Glomerular Filtration Rate 63 mL/min (>60); Est Glom Filt Rate - Afr Amer 76 mL/min (>60); Estimated Creatinine Clearance 48.58 ml/min; Glucose 106 mg/dL (74-106); Potassium 4.1 mmol/L (3.5-5.1); Sodium Level 134 mmol/L (136-145)
--- NOTE | 2019-03-06 18:23 | ED.VISSUMM ---
- ER Visit Summary Date of Service: 03/06/19 Chief Complaint: [Shortness of breath] History of Present Illness: The patient is a 74 F [presents to the emergency department complaint of shortness of breath for 4 months. Patient was being seen by a maxillofacial pathology today for a second opinion and was advised to come to the emergency department to have a PE ruled out. Patient denies recent travel or surgery. Patient states that about a month ago she was experiencing chest pains and was seen in the emergency department and admitted and had a heart catheterization that did not not show any acute occlusions nor did she require any type of intervention. Patient has history of hypertension, coronary artery disease, anxiety, chronic kidney disease, neuropathy, and high cholesterol. Patient denies any real cough or fever.] Physical Examination: [HEENT-PERRLA, EOMI. Cranial nerves II through XII grossly intact. TMs clear. Mucous membranes moist. No adenopathy. Cardiovascular-regular rate and rhythm without murmur or ectopy Lungs-clear to auscultation, chest wall stable without crepitus or subcu emphysema Abdomen-normoactive bowel sounds, soft, nontender, no rebound or rigidity, no peritoneal signs. Extremities-intact ?4, normal range of motion, normal pulses, atraumatic] Test Results: [CBC with differential obtained for white count 10.6, hemoglobin 14, hematocrit 43, placed 307. Chemistries unremarkable. CT scan of the chest with IV contrast showed no evidence for PE. Patient did have a left upper lobe superior segment consolidation which was not there in 2017.] Emergency Department Course and Treatment: [He was started on Levaquin 750 mg p.o.] Treatment Plan: Patient will be treated with Levaquin and advised to follow-up with her maxillofacial pathology.] Disposition: [Discharged home in stable condition. Patient advised to return if increasing shortness of breath or conditions worsen anyway.] Impression: [Left lower lobe pneumonia] This note was generated with [employer] dictation software. It may contain incorrect words, spelling, and punctuation that were not noted in review of the chart prior to signing ED Disposition - Plan for ED Patient: Referrals: Saeed Griffith III, MD [Primary Care Provider] -
--- NOTE | 2019-03-06 18:54 | DCINST.ED_ITS ---
ED Disposition - Plan for ED Patient: Instructions: PNEUMONIA (Adult) Prescriptions: Levofloxacin [Levaquin] 750 mg PO DAILY #6 tab Transmission Status: Pending to [facility]/pharmacy #[id number] Referrals: Saeed Griffith III, MD [Primary Care Provider] - Additional Instructions: see your court recording monitor
--- NOTE | 2019-03-06 18:54 | ED.DEP ---
ED Disposition - Plan for ED Patient: Instructions: PNEUMONIA (Adult) Prescriptions: Levofloxacin [Levaquin] 750 mg PO DAILY #6 tab Transmission Status: Pending to [facility]/pharmacy #[id number] Referrals: Saeed Griffith III, MD [Primary Care Provider] - Additional Instructions: see your lending advisor
[2019-03-06] MEDS: levoFLOXacin 750 MG Tablet PO (19:04)
[2019-03-06 19:08] VITALS: BP 102/68; PULSE 76; RESP 14; O2SAT 99
== END 2019-03-06 19:08 | disposition home or self-care (01) ==
PROVIDERS: Emergency Provider Emergency Medicine; PCP Family Medicine
DX: J18.9 Pneumonia, unspecified organism (principal); I25.10 Atherosclerotic heart disease of native coronary artery without angina pectoris; E78.00 Pure hypercholesterolemia, unspecified; N18.9 Chronic kidney disease, unspecified; I12.9 Hypertensive chronic kidney disease with stage 1 through stage 4 chronic kidney disease, or unspecified chronic kidney disease; Z79.82 Long term (current) use of aspirin; Z79.899 Other long term (current) drug therapy
CPT/HCPCS: 71275; 80048; 85025; 99284; Q9967; A4216

== ENCOUNTER → 2019-08-25 | Outpatient (CLI) | payer MEDICARE, SELFPAY ==
[2016-03-22 09:58] VITALS: BMI 23.0
[2019-08-11 19:17] VITALS: BMI 26.9
[2019-08-25 13:16] LABS: AST(SGOT) 54 U/L (15-37); Alanine Aminotransfer ALT/SGPT 74 U/L (13-56); Albumin, Serum 3.8 g/dL (3.2-5.0); Alkaline Phosphatase 43 U/L (45-117); Bilirubin, Direct 0.17 mg/dL (0.00-0.30); Cholesterol 189 mg/dL (200); Globulin 2.9 g/dL (2.2-4.2); High Density Lipoprotein 39 mg/dL; Protein, Total 6.7 g/dL (6.4-8.2); Triglycerides 156 mg/dL; Very Low Density Lipoprotein 31 mg/dL (5-40)
[2019-08-25 13:29] LABS: Anion Gap 9 (5-15); BUN 16 mg/dL (7-18); BUN/Creat Ratio 20.8 RATIO (10-20); Chloride 106 mmol/L (98-107); Creatinine, Serum 0.77 mg/dL (0.55-1.02); EST Glomerular Filtration Rate 78 mL/min (>60); Est Glom Filt Rate - Afr Amer 94 mL/min (>60); Glucose 90 mg/dL (74-106); Potassium 4.1 mmol/L (3.5-5.1); Sodium Level 141 mmol/L (136-145); T4 Free Direct 1.23 ng/dL (0.76-1.46); Thyroid Stim Hormone (TSH) 1.68 uIU/mL (0.358-3.74)
== END | disposition home or self-care (01) ==
LOC: BIMLAB 09:15
PROVIDERS: Nurse Practitioner Family; PCP Family Medicine; Referring Provider Internal Medicine Endocrinology, Diabetes & Metabolism; Visit Provider Internal Medicine Endocrinology, Diabetes & Metabolism
DX: D64.9 Anemia, unspecified (principal); E03.9 Hypothyroidism, unspecified; E27.40 Unspecified adrenocortical insufficiency; E78.00 Pure hypercholesterolemia, unspecified; E78.5 Hyperlipidemia, unspecified
CPT/HCPCS: 36415; 80048; 80061; 80076; 84439; 84443

== ENCOUNTER → 2019-10-12 | Outpatient (CLI) | payer MEDICARE, SELFPAY ==
[2016-03-22 09:58] VITALS: BMI 23.0
[2019-08-11 19:17] VITALS: BMI 26.9
[2019-10-12 10:12] LABS: AST(SGOT) 46 U/L (15-37); Alanine Aminotransfer ALT/SGPT 52 U/L (13-56); Albumin, Serum 3.7 g/dL (3.2-5.0); Alkaline Phosphatase 55 U/L (45-117); Bilirubin, Direct 0.17 mg/dL (0.00-0.30); Cholesterol 220 mg/dL (200); Globulin 3.5 g/dL (2.2-4.2); High Density Lipoprotein 46 mg/dL; Protein, Total 7.2 g/dL (6.4-8.2); Triglycerides 158 mg/dL; Very Low Density Lipoprotein 32 mg/dL (5-40)
== END | disposition home or self-care (01) ==
LOC: LAB 08:56
PROVIDERS: PCP Family Medicine; Referring Provider Nurse Practitioner Family; Visit Provider Nurse Practitioner Family
DX: E78.5 Hyperlipidemia, unspecified (principal); R74.8 Abnormal levels of other serum enzymes
CPT/HCPCS: 36415; 80061; 80076

== ENCOUNTER → 2019-11-18 | Outpatient (CLI) | payer MEDICARE, SELFPAY ==
[2016-03-22 09:58] VITALS: BMI 23.0
[2019-08-11 19:17] VITALS: BMI 26.9
[2019-11-17 14:57] VITALS: BMI 26.9
--- NOTE | 2019-11-18 10:19 | BI_ITS ---
MAMMOGRAPHY - BILATERAL SCREENING REASON FOR EXAM: Female, 74 years old. Routine annual screening examination. PERTINENT HISTORY: Sister with breast cancer. Aunt with breast cancer. TECHNIQUE: Digital bilateral breast venus (3D mammographic acquisition) in the CC and MLO projections. 2-D mediolateral oblique (MLO) and craniocaudad (CC) views of both breasts were obtained. CAD: Full Field Digital Mammography with Computer Added Detection was performed. COMPARISON: Comparison is made with prior study dated 11/11/2018 and 05/01/2016. FINDINGS: Breast Composition: There are scattered areas of fibroglandular density. There are no dominant masses or suspicious calcifications. Stable small well-defined nodules in the upper outer aspect of the left breast. No other significant abnormalities are identified. There has been no significant change since the prior study. BI/SCREEN MAMM (CAD) W/VENUS BILAT IMPRESSION: Stable bilateral screening mammogram. Yearly follow-up mammogram recommended. (A) ASSESSMENT CATEGORY: BIRADS Category 2: Benign. A letter regarding these results will be sent to the patient by the facility within 30 days. Approximately 10% of breast cancers are not detected by mammography. A normal mammogram should not delay biopsy of a clinically suspicious abnormality. [id number] Electronically Signed: Jw Story, at 11:15 EDT , Service support ,
== END | disposition home or self-care (01) ==
LOC: OPBI 10:15
PROVIDERS: PCP Family Medicine; Referring Provider Obstetrics & Gynecology; Visit Provider Obstetrics & Gynecology
DX: Z12.31 Encounter for screening mammogram for malignant neoplasm of breast (principal)
CPT/HCPCS: 77063; 77067

== ENCOUNTER → 2020-07-06 08:14 | Outpatient (CLI) | payer MEDICARE, SELFPAY ==
[2016-03-22 09:58] VITALS: BMI 23.0
[2020-07-04 15:19] VITALS: BMI 25.1
[2020-07-06 09:19] LABS: AST(SGOT) 16 U/L (15-37); Alanine Aminotransfer ALT/SGPT 32 U/L (13-56); Albumin, Serum 3.9 g/dL (3.2-5.0); Alkaline Phosphatase 56 U/L (45-117); Bilirubin, Direct 0.15 mg/dL (0.00-0.30); Cholesterol 209 mg/dL (200); Globulin 3.5 g/dL (2.2-4.2); High Density Lipoprotein 58 mg/dL; Protein, Total 7.4 g/dL (6.4-8.2); Triglycerides 93 mg/dL; Very Low Density Lipoprotein 19 mg/dL (5-40)
== END ==
PROVIDERS: PCP Family Medicine; Referring Provider Internal Medicine Cardiovascular Disease; Visit Provider Internal Medicine Cardiovascular Disease
DX: E78.00 Pure hypercholesterolemia, unspecified (principal)
CPT/HCPCS: 36415; 80061; 80076

== ENCOUNTER → 2020-12-26 08:52 | Outpatient (CLI) | payer MEDICARE, SELFPAY ==
[2016-03-22 09:58] VITALS: BMI 23.0
[2020-12-26 10:39] LABS: AST(SGOT) 25 U/L (15-37); Alanine Aminotransfer ALT/SGPT 44 U/L (13-56); Albumin, Serum 3.8 g/dL (3.2-5.0); Alkaline Phosphatase 54 U/L (45-117); Bilirubin, Direct 0.15 mg/dL (0.00-0.30); Cholesterol 169 mg/dL (200); Globulin 3.7 g/dL (2.2-4.2); High Density Lipoprotein 49 mg/dL; Protein, Total 7.5 g/dL (6.4-8.2); Triglycerides 68 mg/dL; Very Low Density Lipoprotein 14 mg/dL (5-40)
== END ==
PROVIDERS: PCP Family Medicine; Referring Provider Internal Medicine Cardiovascular Disease; Visit Provider Internal Medicine Cardiovascular Disease
DX: E78.5 Hyperlipidemia, unspecified (principal); I25.10 Atherosclerotic heart disease of native coronary artery without angina pectoris; Z95.5 Presence of coronary angioplasty implant and graft
CPT/HCPCS: 36415; 80061; 80076

== ENCOUNTER 2021-02-27 07:06 | Outpatient (CLI) | payer MEDICARE, SELFPAY ==
[2016-03-22 09:58] VITALS: BMI 23.0
--- NOTE | 2021-02-27 07:09 | ECHOD_ITS ---
Reason For Study: CAD/ASHD Procedure This was a 2D Doppler, Color Flow transthoracic echocardiogram. The exam was of adequate technical quality. Exam performed in department. Left Ventricle Normal LV size. Sigmoid septum. Left ventricular systolic function is normal. The estimated ejection fraction is 65 %. No evidence for diastolic dysfunction. No regional wall motion abnormalities noted. Right Ventricle Normal RV size. Normal systolic function. Atria The left atrium is moderately enlarged. Normal right atrium. No doppler evidence for ASD. Mitral Valve There is no mitral annular calcification. Normal mitral valve. Mild (1+) mitral valve insufficiency. Tricuspid Valve Normal tricuspid valve. Moderate (2+) tricuspid valve insufficiency. Right ventricular systolic pressure estimated to be 25 mmHg. Aortic Valve Trisinus/trileaflet aortic valve. Mild focal aortic valve calcification. Pulmonic Valve The pulmonic valve is not well visualized. Trivial eccentric pulmonic valve insufficiency. Great Vessels Normal sized aortic root. Pericardium/Pleural No pericardial effusion. MMode/2D Measurements & Calculations LVIDd: 4.3 cm IVSd: 0.81 cm Ao root diam: 3.2 cm LVIDs: 2.7 cm LVPWd: 0.70 cm RVDd: 2.8 cm FS: 37.5 % LAV(MOD-bp): 28.7 ml LVAd ap4: 17.3 cm2 SV(MOD-sp4): 20.9 ml LAV(MOD-bp) Indexed: 19.1 ml/m2 LVLd ap4: 6.6 cm LAV(MOD-sp2): 35.7 ml EDV(MOD-sp4): 37.3 ml LAV(MOD-sp4): 21.4 ml EDV(sp4-el): 38.4 ml LVAs ap4: 10.1 cm2 LVLs ap4: 5.6 cm ESV(MOD-sp4): 16.4 ml ESV(sp4-el): 15.5 ml EF(MOD-sp4): 56.0 % EF(sp4-el): 59.7 % SV(sp4-el): 23.0 ml LA A4 area: 10.9 cm2 LA dimension(2D): 3.4 cm RA A4 area: 9.1 cm2 Doppler Measurements & Calculations MV E max delvin: 53.7 cm/sec Lat Peak E' Delvin: 6.1 cm/sec Med Peak E' Delvin: 4.7 cm/sec MV A max delvin: 61.8 cm/sec E/E' lat: 8.8 E/E' med: 11.4 MV E/A: 0.87 Ao V2 max: 131.6 cm/sec LV V1 max: 86.1 cm/sec PA V2 max: 67.4 cm/sec Ao max P.9 mmHg LV V1 max P.0 mmHg Ao V2 mean: 93.9 cm/sec Ao mean P.8 mmHg Ao V2 VTI: 26.4 cm PI end-d delvin: 88.6 cm/sec TR max delvin: 235.4 cm/sec TR max P.2 mmHg ECHO/Echo Complete Interpretation Summary Left ventricular systolic function is normal. The estimated ejection fraction is 65 %. Sigmoid septum. The left atrium is moderately enlarged. Mild (1+) mitral valve insufficiency. Moderate (2+) tricuspid valve insufficiency. Mild focal aortic valve calcification. Trivial eccentric pulmonic valve insufficiency. Right ventricular systolic pressure estimated to be 25 mmHg. No evidence for diastolic dysfunction. Ordering Physician: Jesu Nowak Referring Physician: Javy Hilliard Performed By: Marga Collier, KIRILL, RVT
--- NOTE | 2021-02-27 09:03 | STRESSREP_ITS ---
Stress Test Report Date: 02-27-2021 Procedure: Exercise tolerance test/imaging study Indications: Shortness of breath/dyspnea on exertion; CAD; PCI Consent: Per the patient Procedure: The patient exercised on a Yamil protocol for 4 minutes and 30 completing Stage I and 1 minute and 30 seconds of Stage II achieving a peak heart rate of 136 bpm (95% predicted maximal heart rate) with a peak blood pressure 154/92 mmHg and a peak MET capacity of 7 METs. The baseline ECG demonstrated normal sinus rhythm. The peak exercise ECG demonstrated no obvious ECG changes. There were no cardiac dysrhythmias pretest, during exercise, or recovery. The functional capacity was considered average. There was no complaint of chest discomfort during exercise or recovery. The examination was discontinued secondary to dyspnea. Impression: 1. Technically adequate (percent predicted maximal heart rate greater than 85%) exercise tolerance test 2. Peak exercise ECG with no obvious ECG changes 3. There were no cardiac dysrhythmias pretest, during exercise, or recovery 4. Nuclear images pending Myocardial perfusion imaging study: Technique: The patient was injected with 11.5 mCi of technetium 99m Cardiolite and subsequently rest SPECT Cardiolite nuclear imaging was obtained in the horizontal long, vertical long, and short axis views. The patient exercised on a Yamil protocol for 4 minutes and 30 completing Stage I and 1 minute and 30 seconds of Stage II achieving a peak heart rate of 136 bpm (95% predicted maximal heart rate) with a peak blood pressure 154/92 mmHg and a peak MET capacity of 7 METs. The patient was injected with 32.6 mCi of technetium 99m Cardiolite and subsequently stress SPECT Cardiolite nuclear imaging was obtained in the horizontal long, vertical long, and short axis views. A gated Cardiolite study at peak stress was obtained. Interpretation: Rest and stress SPECT Cardiolite nuclear imaging status post realignment, no rmalization, and attenuation correction, demonstrates relative uniform tracer uptake and myocardial perfusion appearing within normal limits. There is end systolic thickening and brightening. The gated Cardiolite study demonstrates myocardial thickening and inward wall motion. The reported LVEF is 77%. Impression: 1. Rest and stress SPECT Cardiolite nuclear imaging demonstrate relative unifo rm tracer uptake and myocardial perfusion appearing within normal limits. 2. The gated Cardiolite study reports an LVEF of 77%. This note was generated with [employer] software. It may contain incorrect words, spelling, and punctuation that were not noted in checking the note before signing.
== END 2021-02-27 23:59 | disposition short-term general hospital (02) ==
LOC: CVS 07:08
PROVIDERS: PCP Family Medicine; Referring Provider Internal Medicine Cardiovascular Disease; Visit Provider Internal Medicine Cardiovascular Disease
DX: I25.10 Atherosclerotic heart disease of native coronary artery without angina pectoris (principal); I10 Essential (primary) hypertension; E78.5 Hyperlipidemia, unspecified; Z95.5 Presence of coronary angioplasty implant and graft
CPT/HCPCS: 78452; 93017; 93306; A9500; A4216

== ENCOUNTER → 2021-11-02 | Outpatient (CLI) | payer MEDICARE, SELFPAY ==
[2016-03-22 09:58] VITALS: BMI 23.0
[2021-11-02 13:09] LABS: AST(SGOT) 29 U/L (15-37); Alanine Aminotransfer ALT/SGPT 57 U/L (13-56); Albumin, Serum 3.7 g/dL (3.2-5.0); Alkaline Phosphatase 51 U/L (45-117); Bilirubin, Direct 0.14 mg/dL (0.00-0.30); Cholesterol 199 mg/dL (200); Globulin 3.9 g/dL (2.2-4.2); High Density Lipoprotein 49 mg/dL; Protein, Total 7.6 g/dL (6.4-8.2); Triglycerides 111 mg/dL; Very Low Density Lipoprotein 22 mg/dL (5-40)
== END | disposition home or self-care (01) ==
LOC: LAB 11:50
PROVIDERS: PCP Family Medicine; Referring Provider Internal Medicine Cardiovascular Disease; Visit Provider Internal Medicine Cardiovascular Disease
DX: I25.10 Atherosclerotic heart disease of native coronary artery without angina pectoris (principal); E78.2 Mixed hyperlipidemia
CPT/HCPCS: 36415; 80061; 80076

== ENCOUNTER → 2022-02-01 | Outpatient (CLI) | payer MEDICARE, SELFPAY ==
[2016-03-22 09:58] VITALS: BMI 23.0
[2022-02-01 14:51] LABS: ALB/GLOB Ratio 1.1 RATIO (0.9-2.4); AST(SGOT) 38 U/L (15-37); Alanine Aminotransfer ALT/SGPT 63 U/L (13-56); Albumin, Serum 3.8 g/dL (3.2-5.0); Alkaline Phosphatase 51 U/L (45-117); Anion Gap 5 (5-15); BUN 21 mg/dL (7-18); BUN/Creat Ratio 19.6 RATIO (10-20); Calcium,Total 9.6 mg/dL (8.5-10.1); Chloride 105 mmol/L (98-107); Cholesterol 164 mg/dL (200); Creatinine, Serum 1.07 mg/dL (0.55-1.02); EST Glomerular Filtration Rate 53 mL/min (>60); Est Glom Filt Rate - Afr Amer 64 mL/min (>60); Globulin 3.5 g/dL (2.2-4.2); Glucose 125 mg/dL (74-106); High Density Lipoprotein 48 mg/dL; Potassium 3.8 mmol/L (3.5-5.1); Protein, Total 7.3 g/dL (6.4-8.2); Sodium Level 139 mmol/L (136-145); T4 Free Direct 1.26 ng/dL (0.76-1.46); Triglycerides 89 mg/dL; Very Low Density Lipoprotein 18 mg/dL (5-40)
[2022-02-01 14:53] LABS: Vitamin D,25 Hydroxy 38.9 ng/mL
== END | disposition home or self-care (01) ==
LOC: LAB 13:18
PROVIDERS: PCP Family Medicine; Referring Provider Internal Medicine Endocrinology, Diabetes & Metabolism; Visit Provider Internal Medicine Endocrinology, Diabetes & Metabolism
DX: E78.2 Mixed hyperlipidemia (principal); E27.1 Primary adrenocortical insufficiency; I25.10 Atherosclerotic heart disease of native coronary artery without angina pectoris; G25.81 Restless legs syndrome; E55.9 Vitamin D deficiency, unspecified; M85.80 Other specified disorders of bone density and structure, unspecified site; E06.3 Autoimmune thyroiditis; E03.8 Other specified hypothyroidism
CPT/HCPCS: 36415; 80053; 80061; 82306; 84439; 84443

== ENCOUNTER 2022-05-16 00:51 | Emergency (ER) | payer MEDICARE, SELFPAY ==
[2016-03-22 09:58] VITALS: BMI 23.0
[2022-05-16 00:55] VITALS: BP 133/74; PULSE 85; RESP 16; TEMP 36.3; O2SAT 97; BMI 27.3
--- NOTE | 2022-05-16 01:15 | EDS_ITS ---
HPI HPI - GI History of Present Illness Chief Complaint: Nausea/Vomiting/Diarrhea Informant: patient Abdominal Pain/Flank Pain Onset: Days (2) Context: Gradual Onset Timing: Continuous Quality: Aching and Burning Location: Epigastric Worsened by: Nothing Relieved by: Nothing Nausea/Vomiting/Emesis GI Symptom: Positive for Nausea and Vomiting Quality: Positive for Nonbilious; Negative for Blood streaks, Coffee ground or Hematemesis Diarrhea/Melena/Hematochezia GI Symptom: Positive for Diarrhea; Negative for Melena or Hematochezia Stool Quality: Positive for Watery Associated Symptoms Associated Symptoms: Negative for Dysuria, Frequency or Hematuria Narrative Narrative: Patient presents with nausea, vomiting, and diarrhea that has been constant for the past 2 days. Patient states she has pain over the epigastric area and radiates up into her chest. Patient describes it as aching and burning. Patient states nothing makes it better nothing makes it worse. Patient states she is unable to keep anything down, including her medications. Patient states her diarrhea is were watery. Patient denies any hematemesis or coffee-ground emesis. Patient denies any melena or hematochezia. Patient denies any dysuria, frequency, or hematuria. 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 Anemia Arthritis Asthma Atherosclerosis of coronary artery of [place] heart without angina pectoris Atrophy of vagina Breast lump Bronchiectasis Cataracts, bilateral Coronary artery disease Cystocele, midline Essential hypertension Gammopathy GERD (gastroesophageal reflux disease) H/O transfusion of whole blood H/O: pneumonia High triglycerides History of polycythemia History of polycythemia vera Hives Hyperlipidemia Insomnia Iron deficiency Kidney disease Low calcium levels Mixed hyperlipidemia Neuropathy Osteopenia Osteopenia determined by x-ray Osteoporosis Recurrent UTI Restless leg syndrome Seasonal allergies Skin cancer Status post insertion of drug-eluting stent into left anterior descending (LAD) artery Stomach ulcer Thyroid disease Home Medications multivitamin with folic acid 400 mcg tablet 1 tab PO DAILY VITAMIN 04/01/13 [History Last Taken 03/20/16 09:00] omeprazole 40 mg capsule,delayed release 40 mg PO DAILY REFLUX 04/01/13 [History Last Taken 11/13/18] aspirin 81 mg chewable tablet 81 mg PO DAILY@0800 [facility] 02/05/17 [History Last Taken Unknown] biotin 10,000 mcg capsule 10,000 mcg PO DAILY SUPPLEMENT 11/06/18 [History Last Taken Unknown] flaxseed oil 1,000 mg capsule 1,000 mg PO DAILY SUPPLEMENT 01/18/19 [History Last Taken Unknown] cyanocobalamin (vitamin B-12) 100 mcg tablet 100 mcg PO .COMPLEX 07/04/20 [History Last Taken Unknown] nitroglycerin 0.4 mg sublingual tablet 0.4 mg sublingual Q5M PRN Chest Pain #25 tabs 07/04/20 [Rx Last Taken Unknown] fluticasone furoate 200 mcg/actuation blister powder for inhalation (Arnuity Ellipta) 1 inh inhalation DAILY 10/04/20 [History Last Taken Unknown] montelukast 10 mg tablet 10 mg PO DAILY 01/20/21 [History Last Taken Unknown] prednisone 2.5 mg tablet 2.5 mg PO .COMPLEX #360 tabs 06/12/21 [Rx Last Taken Unknown] amlodipine 2.5 mg tablet 2.5 mg PO DAILY #90 tabs 01/25/22 [Rx Last Taken Unknown] calcium carb 333 mg-vit D3 133 unit-mag ox 133 mg-zinc oxide 5 mg tab (Evgeny Mag Zinc Plus D3) 1 tab PO DAILY 01/25/22 [History Last Taken Unknown] cholecalciferol (vitamin D3) 125 mcg (5,000 unit) tablet 125 mcg PO DAILY 01/25/22 [History Last Taken Unknown] fluticasone propionate 50 mcg/actuation nasal spray,suspension (Flonase Allergy Relief) 1 spray intranasal DAILY 01/25/22 [History Last Taken Unknown] gabapentin 300 mg capsule 300 mg PO BID 01/25/22 [History Last Taken Unknown] melatonin 5 mg tablet 5 mg PO HS PRN 01/25/22 [History Last Taken Unknown] oxybutynin chloride 5 mg tablet,extended release 24 hr 5 mg PO DAILY 01/25/22 [History Last Taken Unknown] fludrocortisone 0.1 mg tablet 0.1 mg PO DAILY #90 tabs 02/22/22 [Rx Last Taken Unknown] levothyroxine 88 mcg tablet 88 mcg PO .COMPLEX THYROID #90 tabs 04/09/22 [Rx Last Taken Unknown] gemfibrozil 600 mg tablet See Rx Instructions .Route .COMPLEX #180 tabs 02/28/23 [Rx Last Taken Unknown] ezetimibe 10 mg tablet 10 mg PO DAILY #90 tabs 05/10/22 [Rx Last Taken Unknown] loperamide 2 mg capsule (Imodium A-D) 2 mg PO Q4H PRN loose stool #20 caps 05/16/22 [Rx Last Taken Unknown] Allergy/AdvReac Type Severity Reaction Status Date / Time ticagrelor [From Brilinta] Allergy Severe Shortness Verified 01/25/22 14:00 of breath amitriptyline Allergy Unknown Other Verified 01/25/22 14:00 bee venom protein (honey bee) Allergy Anaphylaxis Verified 01/25/22 14:00 house dust mite Allergy uknown Verified 01/25/22 14:00 povidone-iodine Allergy Rash Verified 01/25/22 14:00 [From Betadine] soap [From Betadine] Allergy Rash Verified 01/25/22 14:00 atorvastatin [From Lipitor] AdvReac Intermediate Pain in Verified 01/25/22 14:00 joints rosuvastatin calcium AdvReac Intermediate Pain in Verified 01/25/22 14:00 [From Crestor] joints metoprolol [From Toprol XL] AdvReac gi upset Verified 01/25/22 14:00 pramipexole [From Mirapex] AdvReac Low blood Verified 01/25/22 14:00 pressure simvastatin AdvReac Pain in Verified 01/25/22 14:00 [From Vytorin 10-10] joints Family History Mother Colon cancer Father Emphysema, unspecified Son Down's syndrome Sister Breast cancer Thyroid disorder Aunt Breast cancer Uncle Myocardial infarction, Onset Age: 55 Other Asthma Heart disease Hyperlipidemia Surgical History History of coronary artery stent placement (~03/22/16) History of hysterectomy History of left heart catheterization (01/20/19) History of tonsillectomy Joint removal bilateral great toe Social History Smoking Status: Former smoker Tobacco: How many years used: 10 alcohol intake: current alcohol intake frequency: holidays/special occasions only substance use type: does not use what type of physical activity do you participate in: other frequency: 1-2 times per week ROS ROS ED Constitutional Constitutional ED: Denies chills or fever(s) Eyes Eyes: Denies blurry vision or change in vision ENT ENT ED: Denies rhinorrhea or sore throat Cardiovascular Cardiovascular: Reports chest pain; Denies palpitations Respiratory/Chest Respiratory/Chest: Denies cough or dyspnea Gastrointestinal Gastrointestinal: Reports abdominal pain, diarrhea, nausea and vomiting Genitourinary Genitourinary ED: Denies dysuria or hematuria Musculoskeletal Musculoskeletal: Reports back pain; Denies neck pain Integumentary Denies abscess or rash Neurologic Neurologic: Denies headache(s) or weakness Allergic/Immunologic Allergic/Immunologic ED: Denies mouth swelling or urticaria EXAM Physical Exam Const Vital Signs: 05/16/22 00:55 05/16/22 03:20 05/16/22 04:44 Temperature 97.4 F L Temperature Source Oral Pulse Rate 85 86 90 Respiratory Rate 16 15 15 Blood Pressure 133/74 H 143/69 H 150/71 H Blood Pressure Mean 93 93 97 Pulse Ox 97 96 97 Oxygen Delivery Method Room Air Room Air Room Air Positive well nourished and well developed General Appearance ED: well developed HEENT Reports dry mucous membranes Mouth ED: Yes dry mucous membranes Mouth: dry mucous membranes Neck supple and no JVD Resp normal respiratory effort and clear to auscultation bilaterally Cardio regular rate, regular rhythm and no murmurs GI normal to inspection, nondistended, normoactive bowel sounds Palpation: soft and tender epigastric, LLQ, RLQ, LUQ, RUQ, periumbilical and suprapubic; Negative for guarding or rebound tenderness present Extremity normal to inspection General Extremety ED: Negative for edema or tenderness General Extremity: Negative for edema Neuro oriented x3, CN's II-XII intact bilaterally and no sensory deficits noted Sensorium / Orientation: alert Motor Exam: strength 5/5 throughout Psych mental status grossly normal Skin no rashes or lesions noted MDM MDM MDM Narrative Medical decision making narrative: Differential diagnosis includes gastritis, gastroenteritis, pancreatitis, cardiac ischemia, bowel obstruction, perforation, Julio Cesar's crisis, urinary tract infection, and pyelonephritis. EKG will be obtained to assess for cardiac dysrhythmia and cardiac ischemia. CT scan of the abdomen pelvis will be obtained to assess for bowel obstruction and bowel perforation. Comprehensive metabolic profile will be obtained to assess for hepatic function, renal function, and electrolyte abnormality. Lipase will be obtained to assess for pancreatitis. Urinalysis will be obtained to assess for urinary tract infection and hematuria. Lab Data Attestation: I reviewed the patient's lab results. Lab results narrative: CBC was reviewed and was within normal limits. Comprehensive metabolic profile was reviewed. Potassium slightly low at 3.1. AST was 69 and ALT was 93. The remainder was within normal limits. Lipase was normal at 57. Urinalysis shows a leukocyte esterases 25. There were 0-5 white blood cells. There is 4+ bacteria and positive nitrites. Labs: Laboratory Results - last 24 hr 05/16/22 05/16/22 05/16/22 01:30 01:30 02:30 WBC 8.9 RBC 5.43 H Hgb 16.8 H Hct 50.3 H MCV 92.6 MCH 30.9 MCHC 33.4 RDW Std Deviation 45.4 H RDW Coeff of Asher 13.3 Plt Count 238 MPV 10.0 Immature Gran % (Auto) 0.300 Neut % (Auto) 77.1 H Lymph % (Auto) 13.2 L [place] % (Auto) 7.4 Eos % (Auto) 1.6 Baso % (Auto) 0.4 Absolute Neuts (auto) 6.9 Absolute Lymphs (auto) 1.17 Nucleated RBC % 0 Sodium 136 Potassium 3.1 L Chloride 108 H Carbon Dioxide 18.0 L Anion Gap 10 BUN 23 H Creatinine 0.61 Estim Creat Clear Calc 44.14 Est GFR (MDRD) Af Amer 123 Est GFR (MDRD) Non-Af 101 BUN/Creatinine Ratio 38.0 H Glucose 98 Calcium 8.9 Total Bilirubin 0.70 AST 69 H ALT 93 H Alkaline Phosphatase 52 Troponin I High Sens 5 Total Protein 8.3 H Albumin 4.1 Globulin 4.2 Albumin/Globulin Ratio 1.0 Lipase 57 L Urine Color Yellow Urine Clarity Clear Urine pH 5.0 Ur Specific [place] 1.020 Urine Protein 30 H Urine Glucose (UA) Normal Urine Ketones 5 H Urine Occult Blood 50 H Urine Nitrite Positive H Urine Bilirubin Negative Urine Urobilinogen 1 H Ur Leukocyte Esterase 25 H Urine RBC 0-5 SEEN Urine WBC 0-5 SEEN Ur Squamous Epith Cells 0 SEEN Urine Bacteria 4+ Urine Mucus 0 SEEN Radiography Diagnostic Testing: Clinical Impression(s) from Imaging Studies Abdomen/Pelvis CT 05/16/22 01:23 IMPRESSION: 1. Gas and fluid distention of small bowel loops as well as liquid feces in the colon, probably representing malabsorption. No evidence for mechanical bowel obstruction. No demonstrated mural thickening of large or small bowel loops. 2. Colonic diverticulosis without evidence for acute colonic diverticulitis. 3. Duodenal diverticulum. No evidence for duodenal diverticulitis. 4. Small hiatal hernia. 5. Fatty liver. 6. Atherosclerosis. Ectatic infrarenal abdominal aorta with diameter of 2.6 cm. Recommend abdomen/pelvis CT or MR imaging follow-up in 5 years. Electronically Signed: Lionel Cochran MD at 2:46 EDT , CT scan of the abdomen pelvis was obtained. There is gas and fluid distention of small bowel loops and liquid feces in the colon, possibly representing malabsorption. There is no evidence of obstruction. There is no free air or free fluid. There is diverticulosis of the colon but no diverticulitis. There is no other acute abnormality noted. This was interpreted by the radiologist and was also reviewed by myself. EKG Initial EKG: Attestation: I personally reviewed and interpreted this EKG as follows: Interpretation: Sinus Rhythm (86) and Non-Specific ST Changes Comments: EKG was obtained. On my independent interpretation, it showed a normal sinus rhythm with a rate of 86. [place] interval, QRS interval, and QTc intervals were all normal. [place] was normal. There are nonspecific ST-T wave changes. Prior EKG tracings: available for review Prior: Unchanged (02/27/2021) Treatment and Re-Evaluation :: Patient was given IV fluids. Patient was still having watery diarrhea. Because of this, stool studies were obtained. Patient was given a dose of Imodium. Patient was given repeat bolus of normal saline. Patient was also given a dose of Solu-Cortef since she was unable to keep down any of her medications inc luding her fludrocortisone. Patient was given a dose of Imodium here. Patient was given prescription for Imodium. Patient was instructed to follow-up with her primary care physician in 3 to 5 days for further evaluation. Patient understood and was agreeable with the plan. All questions were answered. Discharge Plan Triage Chief Complaint: Nausea/Vomiting/Diarrhea ED Provider: Khari Ramos Dx/Rx/DC Orders Clinical Impression: Nausea, vomiting, and diarrhea, Adrenal cortical insufficiency Instructions: ED Vomiting and Diarrhea ... Prescriptions: New loperamide [Imodium A-D] 2 mg capsule 2 mg PO Q4H PRN (Reason: loose stool) Qty: 20 0RF Rx Instructions: administer after each loose stool until symptoms controlled; do not exceed 8 mg per 24 hrs No Action cyanocobalamin (vitamin B-12) 100 mcg tablet 100 mcg PO .COMPLEX Rx Instructions: 100 mcg PO MWF; nitroglycerin 0.4 mg tablet, sublingual 0.4 mg SUBLINGUAL Q5M PRN (Reason: Chest Pain) Qty: 25 3RF Arnuity Ellipta 200 mcg/actuation blister with device 1 inh inhalation DAILY montelukast 10 mg tablet 10 mg PO DAILY prednisone 2.5 mg tablet 2.5 mg PO .COMPLEX Qty: 360 3RF Rx Instructions: 2.5 mg PO take 2 tabs in the am and 1 tab in the afternoon; take more on sick days melatonin 5 mg tablet 5 mg PO HS PRN Evgeny Mag Zinc Plus D3 333 mg-133 unit -133 mg-5 mg tablet 1 tab PO DAILY fluticasone propionate [Flonase Allergy Relief] 50 mcg/actuation spray,suspension 1 spray intranasal DAILY Rx Instructions: administer into each nostril cholecalciferol (vitamin D3) 125 mcg (5,000 unit) tablet 125 mcg PO DAILY gabapentin 300 mg capsule 300 mg PO BID oxybutynin chloride 5 mg tablet extended release 24hr 5 mg PO DAILY amlodipine 2.5 mg tablet 2.5 mg PO DAILY Qty: 90 3RF omeprazole 40 MG capsule 40 mg PO DAILY Label Comments: GERD multivitamin with folic acid 1 TABLET tablet 1 tab PO DAILY Label Comments: supplement aspirin 81 MG tablet,chewable 81 mg PO DAILY@0800 biotin 10,000 MCG capsule 10,000 mcg PO DAILY flaxseed oil 1,000 MG capsule 1,000 mg PO DAILY fludrocortisone 0.1 mg tablet 0.1 mg PO DAILY Qty: 90 1RF levothyroxine 88 mcg tablet 88 mcg PO .COMPLEX Qty: 90 3RF Rx Instructions: 88 mcg PO 1 tab mon-sat, 1/2 tab on Sun; gemfibrozil 600 mg tablet See Rx Instructions .ROUTE .COMPLEX Qty: 180 3RF Dose Instruction: TAKE 1 TABLET TWICE DAILY Rx Instructions: TAKE 1 TABLET TWICE DAILY ezetimibe 10 mg tablet 10 mg PO DAILY Qty: 90 3RF Primary Care Provider: Javy Hilliard Referrals: Javy Hilliard MD [Primary Care Provider] - 3-5 Days Disposition Disposition: Home, Self Care
--- NOTE | 2022-05-16 01:23 | CT_ITS ---
EXAM: CT ABDOMEN AND PELVIS WITHOUT INTRAVENOUS CONTRAST CLINICAL INDICATION: Abdominal pain Abdominal pain TECHNIQUE: Helically acquired images were obtained of the abdomen and pelvis without intravenous contrast. This CT exam was performed using one or more of the following dose reduction techniques: automated exposure control, adjustment of the mA and/or kV according to patient size, and/or use of iterative reconstruction technique. This report was created using [employer] report generation technology. RADIATION DOSE: CTDIvol = 6.57 mGy, DLP = 316.70 mGy-cm COMPARISON: CTA chest 03/06/2019. FINDINGS: LOWER THORAX: There is mild atelectasis or fibrosis in the visualized lung bases. There is a small hiatal hernia. No cardiomegaly. No significant pericardial effusion. ABDOMEN: LIVER: There is decreased attenuation of liver consistent with fatty infiltration. GALLBLADDER AND BILE DUCTS: Unremarkable. No calcified gallstones. No gallbladder distention or wall edema. No intra- or extrahepatic biliary ductal dilation. PANCREAS: Unremarkable. No focal cystic mass. SPLEEN: Unremarkable. Normal size without focal cystic or solid mass. ADRENALS: Unremarkable. No nodules. KIDNEYS AND URETERS: Unremarkable. Normal renal size and position. No hydronephrosis. STOMACH AND BOWEL: There are colonic diverticula. There is a 2.2 cm diverticulum of the third segment of the duodenal sweep. There is no evidence for acute colonic or duodenal diverticulitis. There is gas and fluid distention of multiple small bowel loops, with diameters ranging up to 3.2 cm. There is no demonstrated decompression of the distal small bowel. There is a liquid feces in the colon. These findings are likely to represent malabsorption. There is no evidence for mechanical bowel obstruction. There is no demonstrated mural thickening of small bowel loops. PELVIS: APPENDIX: A normal-appearing appendix is seen on axial images was 103-116. BLADDER: Unremarkable. REPRODUCTIVE: Uterus is absent. ABDOMEN and PELVIS: INTRAPERITONEAL SPACE: Unremarkable. No ascites or other fluid collection. No free air. BONES/JOINTS: There are multilevel degenerative changes in the visualized spine. There is a compression fracture L1 vertebral body which appears to be chronic. No suspicious lytic or blastic abnormality. SOFT TISSUES: Unremarkable. No discrete abdominal or pelvic wall hernia. VASCULATURE: There is ectasia of the infrarenal abdominal aorta with maximal diameter of 2.6 cm. There is atherosclerotic calcification of coronary arteries. LYMPH NODES: Unremarkable. No enlarged lymph nodes. CT/Abdomen/Pelvis without Cont IMPRESSION: 1. Gas and fluid distention of small bowel loops as well as liquid feces in the colon, probably representing malabsorption. No evidence for mechanical bowel obstruction. No demonstrated mural thickening of large or small bowel loops. 2. Colonic diverticulosis without evidence for acute colonic diverticulitis. 3. Duodenal diverticulum. No evidence for duodenal diverticulitis. 4. Small hiatal hernia. 5. Fatty liver. 6. Atherosclerosis. Ectatic infrarenal abdominal aorta with diameter of 2.6 cm. Recommend abdomen/pelvis CT or MR imaging follow-up in 5 years. Electronically Signed: Lionel Cochran MD at 2:46 EDT ,
[2022-05-16 01:38] LABS: Absolute Lymphocyte Count 1.17 X10^3/uL (0.83-4.51); Absolute Neutrophil Count 6.9 X10^3/uL (2.0-7.7); Basophil# 0.04 X10^3/uL; Basophil% 0.4 % (0-1); Eosinophil# 0.14 X10^3/uL; Eosinophils% 1.6 % (0-5); Hematocrit 50.3 % (37-47); Hemoglobin 16.8 g/dL (12.0-15.0); Lymphocyte # 1.17 X10^3/ul (0.83-4.51); Lymphocyte % 13.2 % (19-41); Mean Corp Hgb Conc 33.4 g/dL (32-36); Mean Corpuscular Hgb 30.9 pg (27.0-32.0); Mean Corpuscular Volume 92.6 fL (81-99); Monocyte# 0.66 X10^3/uL; Monocyte% 7.4 % (0-10); NRBC Flagged by Analyzer 0 % (0-5); Neutrophil # 6.85 X10^3/uL (2.7-7.7); Neutrophil % 77.1 % (47-70); Platelet Count 238 K/mm3 (150-450); RBC Distribution Width CV 13.3 % (11.6-14.6); RBC Distribution Width SD 45.4 fl (35.1-43.9); Red Blood Count 5.43 M/mm3 (4.2-5.4); White Blood Count 8.9 K/mm3 (4.4-11.0)
--- NOTE | 2022-05-16 01:40 | EKG12_ITS ---
Test Reason : N/V Blood Pressure : / mmHG Vent. Rate : 086 BPM Atrial Rate : 086 BPM P-R Int : 152 ms QRS Dur : 084 ms QT Int : 350 ms P-R-T Axes : 049 051 051 degrees QTc Int : 418 ms Normal sinus rhythm Nonspecific ST abnormality Abnormal ECG Confirmed by BEATRIZ LANG, JOSEPHINE ([id number]), brands editor GISSELL DEY ([id number]) on 05/21/2022 6:56:53 AM Referred By: ARABELLA Confirmed By:ZACHARY HENDERSON MD
[2022-05-16 02:01] LABS: AST(SGOT) 69 U/L (15-37); Alanine Aminotransfer ALT/SGPT 93 U/L (13-56); Albumin, Serum 4.1 g/dL (3.2-5.0); Alkaline Phosphatase 52 U/L (45-117); Anion Gap 10 (5-15); BUN 23 mg/dL (7-18); Calcium,Total 8.9 mg/dL (8.5-10.1); Chloride 108 mmol/L (98-107); Creatinine, Serum 0.61 mg/dL (0.55-1.02); EST Glomerular Filtration Rate 101 mL/min (>60); Est Glom Filt Rate - Afr Amer 123 mL/min (>60); Estimated Creatinine Clearance 44.14 ml/min; Globulin 4.2 g/dL (2.2-4.2); Glucose 98 mg/dL (74-106); Lipase 57 U/L (73-393); Potassium 3.1 mmol/L (3.5-5.1); Protein, Total 8.3 g/dL (6.4-8.2); Sodium Level 136 mmol/L (136-145); Troponin-I HS 5 pg/mL (3.0-54.0)
[2022-05-16] MEDS: Morphine 4 MG/ML Syringe IV (02:05)
[2022-05-16] MEDS: Hydrocortisone Sod Succinate 100 MG/2 ML Vial IV (02:06)
[2022-05-16] MEDS: Ondansetron 4 MG/2 ML Vial IV (02:06)
[2022-05-16] MEDS: 0.9% Normal Saline 1,000 ML 1000 ML IV ×2 (02:06→03:18)
[2022-05-16 02:38] LABS: Color, Urine Yellow (Yellow); Glucose, Dipstick Normal (Normal); Ketone-Dipstick 5 mg/dl (Negative); Leukocyte Esterase-Dipstick 25 /ul (Negative); Mucous, Urine 0 SEEN /hpf (<or=2+); Nitrite-Dipstick Positive (Negative); Occult Blood-Urine 50 /ul (Negative); Protein-Dipstick 30 mg/dl (Negative); Squamous Epithelial Cells - UA 0 SEEN /hpf (5-10); Urine Bilirubin Dipstick Negative (Negative); Urine Clarity Clear (Clear); Urine Urobilinogen 1 mg/dl (Normal)
[2022-05-16 02:44] LABS: Bacteria 4+ /hpf (None Seen); Red Blood Cells-Urine 0-5 SEEN /hpf (0-5); White Blood Cells 0-5 SEEN /hpf (0-5)
[2022-05-16] MEDS: Potassium Chloride Oral Tablet 20 MEQ 40 MEQ PO (03:16)
[2022-05-16 03:20] VITALS: BP 143/69; PULSE 86; RESP 15; O2SAT 96
[2022-05-16] MEDS: Loperamide 2 MG Capsule PO (04:42)
[2022-05-16 04:44] VITALS: BP 150/71; PULSE 90; RESP 15; O2SAT 97
[2022-05-16 05:45] VITALS: BP 134/72; PULSE 74; RESP 15; O2SAT 99
--- NOTE | 2022-05-16 08:15 | ED.RN ---
THIS RN RECEIVED A CALL FROM LAB. PT STOOL POSITIVE FOR [facility]. DR. THORPE INFORMED, REPORTS NO CHANGE TO PREVIOUS DISCHARGE INSTRUCTIONS. THIS RN ATTEMPTED TO CALL PT AND INFORM OF RESULTS. NO ANSWER. THIS RN LEFT A VOICEMAIL WITH CALL BACK NUMBER.
== END 2022-05-16 04:45 | disposition home or self-care (01) ==
PROVIDERS: Emergency Provider Emergency Medicine; PCP Family Medicine; Visit Provider Emergency Medicine
DX: E27.40 Unspecified adrenocortical insufficiency (principal); R11.2 Nausea with vomiting, unspecified; E78.2 Mixed hyperlipidemia; I25.10 Atherosclerotic heart disease of native coronary artery without angina pectoris; Z87.891 Personal history of nicotine dependence; I10 Essential (primary) hypertension; R10.9 Unspecified abdominal pain; R19.7 Diarrhea, unspecified
CPT/HCPCS: 74176; 80053; 81001; 83630; 83690; 84484; 85025; 87086; 87088; 87177; 87186; 87209; 87428; 87493; 87506; 93005; 96361; 96374; 96375; 99284; J7030; A4216; J2405

== ENCOUNTER → 2022-06-21 | Outpatient (CLI) | payer MEDICARE, SELFPAY ==
[2016-03-22 09:58] VITALS: BMI 23.0
--- NOTE | 2022-06-21 12:32 | BD_ITS ---
STUDY: DUAL ENERGY X-RAY ABSORPTIOMETRY / DXA REASON FOR EXAM: Female, 77 years old. Compare 2019 TECHNIQUE: Bone Mineral Density (BMD) measurements of lumbar spine and bilateral hips were obtained. COMPARISON: Comparison is made with prior study of November 11, 2018. FINDINGS: Lumbar Spine (L1-L4): g/cm2 (0.841) / T-score (-1.9) / Z-score (-0.2) Findings are suggestive of osteopenia with a moderate fracture risk. Left Femur Total: g/cm2 (0.669) / T-score (-2.2) / Z-score (-1.1) Left Femoral Neck: g/cm2 (0.544) / T-score (-2.7) / Z-score (-1.3) Right Femur Total: g/cm2 (0.719) / T-score (-1.8) / Z-score (-0.7) Right Femoral Neck: g/cm2 (0.612) / T-score (-2.1) / Z-score (-0.7) The T-Scores on the most recent prior examination were: Lumbar Spine (L1-L4): There has been improvement of bone density since the previous examination. Left Femur Total: which represents a worsening of 1.2%. Right Femur Total: which represents a worsening of 0.7%. BD/Dexa Bone Density Study IMPRESSION: The patient is considered osteoporotic as outlined below according to World Joe Organization (WHO) criteria with a high fracture risk. There has been worsening of bone density since the previous examination. Reference Information: The T-score is the number of standard deviations above or below the standard which is normal for young adults at their peak bone mineral density. The World Health Organization (WHO) interprets the T-scores as follows: Above -1 Normal bone density Between -1 and -2.5 Osteopenia Equal to / or below -2.5 Osteoporosis As a practical clinical guideline, osteopenia may be graded as follows: Mild -1 through -1.5 Moderate -1.6 through -2.0 Severe -2.1 through -2.4 The Z-score is the number of standard deviations above or below age-matched controls. A Z-score of less than -1.5 would be considered abnormal. References: 1. NIH Osteoporosis and Related Bone Diseases www osteo.org 2. International Society for Clinical Densitometry www iscd.org 3. National Osteoporosis Foundation www nof.org Electronically Signed: Jw Story MD at 9:29 EDT ,
== END | disposition home or self-care (01) ==
LOC: OPBD 12:24
PROVIDERS: PCP Family Medicine; Referring Provider Internal Medicine Endocrinology, Diabetes & Metabolism; Visit Provider Internal Medicine Endocrinology, Diabetes & Metabolism
DX: M81.0 Age-related osteoporosis without current pathological fracture (principal); M85.80 Other specified disorders of bone density and structure, unspecified site
CPT/HCPCS: 77080

== ENCOUNTER → 2022-08-06 | Outpatient (CLI) | payer MEDICARE, SELFPAY ==
[2016-03-22 09:58] VITALS: BMI 23.0
[2022-08-06 08:09] LABS: AST(SGOT) 17 U/L (15-37); Alanine Aminotransfer ALT/SGPT 40 U/L (13-56); Albumin, Serum 3.7 g/dL (3.2-5.0); Alkaline Phosphatase 51 U/L (45-117); Bilirubin, Direct 0.14 mg/dL (0.00-0.30); Cholesterol 211 mg/dL (200); Globulin 3.3 g/dL (2.2-4.2); High Density Lipoprotein 56 mg/dL; Triglycerides 100 mg/dL; Very Low Density Lipoprotein 20 mg/dL (5-40)
== END | disposition home or self-care (01) ==
LOC: LAB 07:33
PROVIDERS: PCP Family Medicine; Referring Provider Internal Medicine Cardiovascular Disease; Visit Provider Internal Medicine Cardiovascular Disease
DX: E06.3 Autoimmune thyroiditis (principal); E27.8 Other specified disorders of adrenal gland; I25.10 Atherosclerotic heart disease of native coronary artery without angina pectoris; E78.5 Hyperlipidemia, unspecified
CPT/HCPCS: 36415; 80061; 80076

== ENCOUNTER 2022-11-02 13:51 | Emergency (ER) | payer MEDICARE, SELFPAY ==
[2016-03-22 09:58] VITALS: BMI 23.0
[2022-11-02 13:52] VITALS: BP 135/62; PULSE 83; RESP 18; TEMP 36.4; O2SAT 92; BMI 26.9
[2022-11-02 14:23] VITALS: O2SAT 98
[2022-11-02 14:27] LABS: Absolute Lymphocyte Count 2.41 X10^3/uL (0.83-4.51); Absolute Neutrophil Count 5.7 X10^3/uL (2.0-7.7); Basophil# 0.05 X10^3/uL; Basophil% 0.5 % (0-1); Eosinophil# 0.19 X10^3/uL; Eosinophils% 2.1 % (0-5); Hematocrit 44.5 % (37-47); Hemoglobin 14.6 g/dL (12.0-15.0); Lymphocyte # 2.41 X10^3/ul (0.83-4.51); Lymphocyte % 26.5 % (19-41); Mean Corp Hgb Conc 32.8 g/dL (32-36); Mean Corpuscular Hgb 31.2 pg (27.0-32.0); Mean Corpuscular Volume 95.1 fL (81-99); Mean Platelet Vol. 9.7 fl (6.2-12.0); Monocyte% 7.7 % (0-10); NRBC Flagged by Analyzer 0 % (0-5); Neutrophil # 5.71 X10^3/uL (2.7-7.7); Neutrophil % 62.8 % (47-70); Platelet Count 231 K/mm3 (150-450); RBC Distribution Width CV 13.5 % (11.6-14.6); RBC Distribution Width SD 47.4 fl (35.1-43.9); Red Blood Count 4.68 M/mm3 (4.2-5.4); White Blood Count 9.1 K/mm3 (4.4-11.0)
[2022-11-02 14:40] LABS: D-Dimer Quantitative (DVT/PE) 0.48 FEU/ug/m (0.27-0.49)
[2022-11-02 14:47] LABS: Anion Gap 4 (5-15); BUN 16 mg/dL (7-18); BUN/Creat Ratio 19.8 RATIO (10-20); Calcium,Total 8.8 mg/dL (8.5-10.1); Chloride 110 mmol/L (98-107); Creatinine, Serum 0.81 mg/dL (0.55-1.02); EST Glomerular Filtration Rate 72 mL/min (>60); Est Glom Filt Rate - Afr Amer 88 mL/min (>60); Estimated Creatinine Clearance 53.64 ml/min; Glucose 105 mg/dL (74-106); Potassium 3.4 mmol/L (3.5-5.1); Sodium Level 141 mmol/L (136-145); Troponin-I HS 4 pg/mL (3.0-54.0)
--- NOTE | 2022-11-02 16:11 | RAD_ITS ---
STUDY: X-RAY CHEST REASON FOR EXAM: Female, 77 years old. dyspnea TECHNIQUE: AP portable COMPARISON: January 18, 2019 FINDINGS: There is mild linear scarring in both lower lobes more pronounced on the left. There is reticulonodular interstitial infiltrate seen in both lower lobes more pronounced on the left. Which are new finding since prior exam and may be consistent with acute inflammatory changes There is no demonstrated pleural abnormality. Normal size heart. Normal mediastinum and bowen. Normal visualized pulmonary arteries. Calcified aortic arch and descending thoracic aorta. Dorsal spine demonstrates degenerative change. Normal visualized ribs, clavicles, and shoulders. There is no demonstrated abnormality of the visualized soft tissue structures of the upper abdomen. RAD/Chest 1 View (Portable) IMPRESSION: Findings which may be consistent with bilateral lower lobe interstitial pneumonia more pronounced on the left. Clinical correlation recommended Electronically Signed: Javy Dyer MD at 16:27 EDT ,
--- NOTE | 2022-11-02 18:39 | EDS_ITS ---
HPI History of Present Illness Chief Complaint: Shortness of Breath Narrative Narrative: 77-year-old female presenting with pain in the right posterior shoulder. She states has had this for a long time after she had a fall injuring the shoulder. It comes and goes. Over the last couple days she is noted that it hurts worse with deep inspiration and movement. Denies any new trauma. She states she is in Silver sneakers to try to rehab this. Patient states she is little bit short of breath this week and went to the urgent care to have this evaluated and she was told she has a blood clot and to go to the emergency room. Patient has no DVT/PE risk factors. No history of DVT. Any anterior chest pain or chest pressure. She is not lightheaded or dizzy. 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 Anemia Arthritis Asthma Atherosclerosis of coronary artery of [place] heart without angina pectoris Atrophy of vagina Breast lump Bronchiectasis Cataracts, bilateral Coronary artery disease Cystocele, midline Essential hypertension Gammopathy GERD (gastroesophageal reflux disease) H/O transfusion of whole blood H/O: pneumonia High triglycerides History of polycythemia History of polycythemia vera Hives Hyperlipidemia Insomnia Iron deficiency Kidney disease Low calcium levels Mixed hyperlipidemia Neuropathy Osteopenia Osteopenia determined by x-ray Osteoporosis Recurrent UTI Restless leg syndrome Seasonal allergies Skin cancer Status post insertion of drug-eluting stent into left anterior descending (LAD) artery Stomach ulcer Thyroid disease Home Medications omeprazole 40 mg capsule,delayed release 40 mg PO DAILY REFLUX 04/01/13 [History Last Taken 11/13/18] aspirin 81 mg chewable tablet 81 mg PO DAILY@0800 [facility] 03/25/16 [History Last Taken Unknown] biotin 10,000 mcg capsule 10,000 mcg PO DAILY SUPPLEMENT 11/06/18 [History Last Taken Unknown] flaxseed oil 1,000 mg capsule 1,000 mg PO DAILY SUPPLEMENT 01/18/19 [History Last Taken Unknown] cyanocobalamin (vitamin B-12) 100 mcg tablet 100 mcg PO .COMPLEX 07/04/20 [Hi story Last Taken Unknown] nitroglycerin 0.4 mg sublingual tablet 0.4 mg sublingual Q5M PRN Chest Pain #25 tabs 07/04/20 [Rx Last Taken Unknown] fluticasone furoate 200 mcg/actuation blister powder for inhalation (Arnuity Ellipta) 1 inh inhalation DAILY 10/04/20 [History Last Taken Unknown] montelukast 10 mg tablet 10 mg PO DAILY 01/20/21 [History Last Taken Unknown] amlodipine 2.5 mg tablet 2.5 mg PO DAILY #90 tabs 01/25/22 [Rx Last Taken Unknown] gabapentin 300 mg capsule 300 mg PO BID 01/25/22 [History Last Taken Unknown] melatonin 5 mg tablet 5 mg PO HS PRN 01/25/22 [History Last Taken Unknown] oxybutynin chloride 5 mg tablet,extended release 24 hr 5 mg PO DAILY 01/25/22 [History Last Taken Unknown] levothyroxine 88 mcg tablet 88 mcg PO .COMPLEX THYROID #90 tabs 04/09/22 [Rx Last Taken Unknown] loperamide 2 mg capsule (Imodium A-D) 2 mg PO Q4H PRN loose stool #20 caps 05/16/22 [Rx Last Taken Unknown] fludrocortisone 0.1 mg tablet 0.1 mg PO DAILY #90 tabs 06/05/22 [Rx Last Taken Unknown] fluticasone propionate 50 mcg/actuation nasal spray,suspension (Flonase Allergy Relief) 1 spray intranasal DAILY PRN 06/05/22 [History Last Taken Unknown] prednisone 2.5 mg tablet 2.5 mg PO .COMPLEX #360 tabs 06/05/22 [Rx Last Taken Unknown] cholecalciferol (vitamin D3) 125 mcg (5,000 unit) tablet 125 mcg PO DAILY 07/24/22 [History Last Taken Unknown] multivitamin 1 tab PO DAILY 07/24/22 [History Last Taken Unknown] ezetimibe 10 mg tablet 10 mg PO DAILY #90 tabs 10/02/22 [Rx Last Taken Unknown] levofloxacin 500 mg tablet 500 mg PO DAILY #7 tabs 11/02/22 [Rx Last Taken Unknown] tramadol 100 mg tablet 50 mg (1/2 x 100 mg) PO TID PRN pain #10 tabs 11/02/22 [Rx Last Taken Unknown] Allergy/AdvReac Type Severity Reaction Status Date / Time ticagrelor [From Brilinta] Allergy Severe Shortness Verified 11/02/22 13:52 of breath amitriptyline Allergy Unknown Other Verified 11/02/22 13:52 bee venom protein (honey bee) Allergy Anaphylaxis Verified 11/02/22 13:52 house dust mite Allergy uknown Verified 11/02/22 13:52 povidone-iodine Allergy Rash Verified 11/02/22 13:52 [From Betadine] soap [From Betadine] Allergy Rash Verified 11/02/22 13:52 atorvastatin [From Lipitor] AdvReac Intermediate Pain in Verified 11/02/22 13:52 joints rosuvastatin calcium AdvReac Intermediate Pain in Verified 11/02/22 13:52 [From Crestor] joints metoprolol [From Toprol XL] AdvReac gi upset Verified 11/02/22 13:52 pramipexole [From Mirapex] AdvReac Low blood Verified 11/02/22 13:52 pressure simvastatin AdvReac Pain in Verified 11/02/22 13:52 [From Vytorin 10-10] joints Family History Mother Colon cancer Father Emphysema, unspecified Son Down's syndrome Sister Breast cancer Thyroid disorder Aunt Breast cancer Uncle Myocardial infarction, Onset Age: 55 Other Asthma Heart disease Hyperlipidemia Surgical History History of coronary artery stent placement (~03/22/16) History of hysterectomy History of left heart catheterization (01/20/19) History of tonsillectomy Joint removal bilateral great toe Social History Smoking Status: Former smoker Tobacco: How many years used: 10 alcohol intake: current alcohol intake frequency: holidays/special occasions only substance use type: does not use what type of physical activity do you participate in: other frequency: 1-2 times per week ROS ROS ED Constitutional Constitutional ED: Denies chills, fever(s) or sweats Eyes Eyes: Denies blurry vision or change in vision ENT ENT ED: Denies ear pain or sore throat Cardiovascular Cardiovascular: Denies chest pain, palpitations or racing heartbeat Respiratory/Chest Respiratory/Chest: Reports dyspnea; Denies cough or sputum Gastrointestinal Gastrointestinal: Denies abdominal pain, constipation, diarrhea, nausea or vomiting Genitourinary Genitourinary ED: Denies dysuria, hematuria or urinary frequency Musculoskeletal Musculoskeletal: Reports other Details: Right shoulder pain ; Denies arthralgias, myalgias or neck pain Integumentary Denies abscess, Abrasions or rash Neurologic Neurologic: Denies headache(s), paresthesias or weakness Psychiatric Psychiatric: Denies anxiety, depression, suicidal ideation or suicidal thoughts Endocrine Endocrinology: Denies polydipsia or polyuria EXAM Physical Exam Const Vital Signs: 11/02/22 13:52 11/02/22 14:23 11/02/22 14:23 Temperature 97.5 F L Temperature Source Temporal Pulse Rate 83 Respiratory Rate 18 Respiratory Depth Respiratory Pattern Blood Pressure 135/62 H Blood Pressure Mean 86 Pulse Ox 92 98 Oxygen Delivery Method Room Air Room Air Room Air 11/02/22 14:23 Temperature Temperature Source Pulse Rate Respiratory Rate Respiratory Depth Normal Respiratory Pattern Normal Blood Pressure Blood Pressure Mean Pulse Ox Oxygen Delivery Method Room Air Positive well nourished General Appearance ED: NAD HEENT atraumatic Eyes PERRL and EOMs intact bilaterally Chest Wall inspection of chest normal and palpation of chest normal Resp normal respiratory effort and clear to auscultation bilaterally GI normal to inspection, nondistended, normoactive bowel sounds Extremity Extremity Narrative: Palpation right medial scapular region. Since, erythema, swelling Neuro oriented x3 and CN's II-XII intact bilaterally Sensorium / Orientation: alert Skin no rashes or lesions noted and no wounds MDM MDM MDM Narrative Medical decision making narrative: Presenting with right shoulder pain which is from an injury and is now worse. She states she is short of breath so we did talk about doing a chest pain work- up. She is PERC negative. Differential includes pneumonia, acute coronary syndrome, musculoskeletal pain. CBC was obtained to assess white blood cell count, hemoglobin, platelets. BMP to assess renal function and electrolytes. High-sensitivity troponin and EKG were obtained to assess for ischemia and dysrhythmia. Chest x-ray to rule out pneumonia. All of this was it within normal limits. EKG showed a sinus rhythm at 73 bpm without sign of ischemic change or ectopy. I initially had the paperwork printed out on my desk and was waiting for the chest x-ray to go back and meet the patient and somebody took the paperwork off of my desk and discharged her. I called her back to tell her that her chest x-ray looks like she has some pneumonia. On my interpretation it shows at least left sided pneumonia. The radiologist reads it as bibasilar. She was not hypoxic and did not have a white count. She refused a COVID test while she was here as well. Call her in a prescription for Ultram and doxycycline. Return precautions will be provided. Impression: 1. Pneumonia 2. Dyspnea 3. Right shoulder pain Lab Data Attestation: I reviewed the patient's lab results. Labs: Laboratory Results - last 24 hr 11/02/22 14:21 WBC 9.1 RBC 4.68 Hgb 14.6 Hct 44.5 MCV 95.1 MCH 31.2 MCHC 32.8 RDW Std Deviation 47.4 H RDW Coeff of Asher 13.5 Plt Count 231 MPV 9.7 Immature Gran % (Auto) 0.400 Neut % (Auto) 62.8 Lymph % (Auto) 26.5 Rankin % (Auto) 7.7 Eos % (Auto) 2.1 Baso % (Auto) 0.5 Absolute Neuts (auto) 5.7 Absolute Lymphs (auto) 2.41 Nucleated RBC % 0 D-Dimer Quant (PE/DVT) 0.48 Sodium 141 Potassium 3.4 L Chloride 110 H Carbon Dioxide 27.0 Anion Gap 4 L BUN 16 Creatinine 0.81 Estim Creat Clear Calc 53.64 Est GFR (MDRD) Af Amer 88 Est GFR (MDRD) Non-Af 72 BUN/Creatinine Ratio 19.8 Glucose 105 Calcium 8.8 Troponin I High Sens 4 Radiography Diagnostic Testing: Clinical Impression(s) from Imaging Studies Chest X-Ray 11/02/22 16:11 IMPRESSION: Findings which may be consistent with bilateral lower lobe interstitial pneumonia more pronounced on the left. Clinical correlation recommended Electronically Signed: Javy Dyer MD at 16:27 EDT , Discharge Plan Triage Chief Complaint: Shortness of Breath ED Provider: Theo Hancock Dx/Rx/DC Orders Instructions: ED Dyspnea, ED Pneumonia (Adult) Prescriptions: New tramadol 100 mg tablet 50 mg PO TID PRN (Reason: pain) Qty: 10 0RF levofloxacin 500 mg tablet 500 mg PO DAILY Qty: 7 0RF No Action cyanocobalamin (vitamin B-12) 100 mcg tablet 100 mcg PO .COMPLEX Rx Instructions: 100 mcg PO MWF; nitroglycerin 0.4 mg tablet, sublingual 0.4 mg SUBLINGUAL Q5M PRN (Reason: Chest Pain) Qty: 25 3RF Arnuity Ellipta 200 mcg/actuation blister with device 1 inh inhalation DAILY montelukast 10 mg tablet 10 mg PO DAILY prednisone 2.5 mg tablet 2.5 mg PO .COMPLEX Qty: 360 3RF Rx Instructions: 2.5 mg PO take 2 tabs in the am and 1 tab in the afternoon; take more on sick days fludrocortisone 0.1 mg tablet 0.1 mg PO DAILY Qty: 90 1RF melatonin 5 mg tablet 5 mg PO HS PRN gabapentin 300 mg capsule 300 mg PO BID oxybutynin chloride 5 mg tablet extended release 24hr 5 mg PO DAILY amlodipine 2.5 mg tablet 2.5 mg PO DAILY Qty: 90 3RF fluticasone propionate [Flonase Allergy Relief] 50 mcg/actuation spray,jose elias pension 1 spray intranasal DAILY PRN Rx Instructions: administer into each nostril multivitamin Tablet 1 tab PO DAILY cholecalciferol (vitamin D3) 125 mcg (5,000 unit) tablet 125 mcg PO DAILY omeprazole 40 MG capsule 40 mg PO DAILY Patient Comments: GERD aspirin 81 MG tablet,chewable 81 mg PO DAILY@0800 biotin 10,000 MCG capsule 10,000 mcg PO DAILY flaxseed oil 1,000 MG capsule 1,000 mg PO DAILY loperamide [Imodium A-D] 2 mg capsule 2 mg PO Q4H PRN (Reason: loose stool) Qty: 20 0RF Rx Instructions: administer after each loose stool until symptoms controlled; do not exceed 8 mg per 24 hrs levothyroxine 88 mcg tablet 88 mcg PO .COMPLEX Qty: 90 3RF Rx Instructions: 88 mcg PO 1 tab mon-sat, 1/2 tab on Sun; ezetimibe 10 mg tablet 10 mg PO DAILY Qty: 90 3RF Primary Care Provider: Javy Hilliard Referrals: Javy Hilliard MD [Primary Care Provider] - Disposition Disposition: Home, Self Care Discharge Date/Time: 11/02/22 16:48
== END 2022-11-02 16:48 | disposition home or self-care (01) ==
PROVIDERS: Emergency Provider Student in an Organized Health Care Education/Training Program; PCP Family Medicine; Visit Provider Student in an Organized Health Care Education/Training Program
DX: J18.9 Pneumonia, unspecified organism (principal); Z87.891 Personal history of nicotine dependence; I25.10 Atherosclerotic heart disease of native coronary artery without angina pectoris; I10 Essential (primary) hypertension; M25.511 Pain in right shoulder; E78.2 Mixed hyperlipidemia; J45.909 Unspecified asthma, uncomplicated
CPT/HCPCS: 71045; 80048; 84484; 85025; 85379; 93005; 94760; 99283

== ENCOUNTER 2023-01-02 12:05 | Outpatient (CLI) | payer MEDICARE, SELFPAY ==
[2016-03-22 09:58] VITALS: BMI 23.0
[2023-01-02 12:25] VITALS: BP 140/74; PULSE 83; RESP 16; TEMP 36.2; O2SAT 96; BMI 25.0
[2023-01-02] MEDS: DENOSUMAB 60 MG/ML SC (12:27)
== END 2023-01-02 12:06 | disposition home or self-care (01) ==
LOC: MEDOUTP 12:06
PROVIDERS: PCP Family Medicine; Referring Provider Internal Medicine Endocrinology, Diabetes & Metabolism; Visit Provider Internal Medicine Endocrinology, Diabetes & Metabolism
DX: M81.0 Age-related osteoporosis without current pathological fracture (principal)
CPT/HCPCS: 96372; J0897

== ENCOUNTER → 2023-03-22 | Outpatient (CLI) | payer MEDICARE, SELFPAY ==
[2016-03-22 09:58] VITALS: BMI 23.0
[2023-03-22 13:21] LABS: Vitamin D,25 Hydroxy 27.6 ng/mL
[2023-03-22 13:30] LABS: ALB/GLOB Ratio 1.1 RATIO (0.9-2.4); AST(SGOT) 21 U/L (15-37); Alanine Aminotransfer ALT/SGPT 39 U/L (13-56); Albumin, Serum 3.7 g/dL (3.2-5.0); Alkaline Phosphatase 43 U/L (45-117); Anion Gap 3 (5-15); BUN 17 mg/dL (7-18); BUN/Creat Ratio 23.4 RATIO (10-20); Chloride 107 mmol/L (98-107); Creatinine, Serum 0.73 mg/dL (0.55-1.02); EST Glomerular Filtration Rate 82 mL/min (>60); Est Glom Filt Rate - Afr Amer 99 mL/min (>60); Globulin 3.3 g/dL (2.2-4.2); Glucose 79 mg/dL (74-106); Potassium 3.3 mmol/L (3.5-5.1); Sodium Level 138 mmol/L (136-145); T4 Free Direct 1.28 ng/dL (0.76-1.46); Thyroid Stim Hormone (TSH) 1.73 uIU/mL (0.358-3.74)
== END | disposition home or self-care (01) ==
PROVIDERS: PCP Family Medicine; Referring Provider Internal Medicine Endocrinology, Diabetes & Metabolism; Visit Provider Internal Medicine Endocrinology, Diabetes & Metabolism
DX: I10 Essential (primary) hypertension (principal); E27.40 Unspecified adrenocortical insufficiency; E55.9 Vitamin D deficiency, unspecified; M81.0 Age-related osteoporosis without current pathological fracture; E03.8 Other specified hypothyroidism; E06.3 Autoimmune thyroiditis; E07.9 Disorder of thyroid, unspecified
CPT/HCPCS: 36415; 80053; 82306; 84439; 84443

== ENCOUNTER 2023-05-05 21:09 | Inpatient (IN) | payer MEDICARE, SELFPAY ==
[2016-03-22 09:58] VITALS: BMI 23.0
[2023-05-05 21:10] VITALS: BP 117/52; PULSE 100; RESP 16; TEMP 36.3; O2SAT 95; BMI 26.1
--- NOTE | 2023-05-05 21:53 | EKG12_ITS ---
Test Reason : CP Blood Pressure : / mmHG Vent. Rate : 092 BPM Atrial Rate : 092 BPM P-R Int : 140 ms QRS Dur : 074 ms QT Int : 312 ms P-R-T Axes : 055 040 058 degrees QTc Int : 385 ms Normal sinus rhythm Normal ECG Confirmed by PRAVEENA MC MD ([id number]), staff editor GISSELL DEY ([id number]) on 05/07/2023 7:57:14 AM Referred By: Confirmed By:PRAVEENA MC MD
[2023-05-05 22:00] VITALS: BP 103/55; PULSE 88; RESP 19; TEMP 36.6; O2SAT 99
[2023-05-05 22:03] LABS: Absolute Neutrophil Count 6.8 X10^3/uL (2.0-7.7); Basophil# 0.02 X10^3/uL; Basophil% 0.3 % (0-1); Eosinophil# 0.09 X10^3/uL; Eosinophils% 1.2 % (0-5); Hemoglobin 14.2 g/dL (12.0-15.0); Mean Corpuscular Hgb 30.2 pg (27.0-32.0); Mean Corpuscular Volume 91.5 fL (81-99); Mean Platelet Vol. 10.2 fl (6.2-12.0); Monocyte# 0.34 X10^3/uL; Monocyte% 4.5 % (0-10); NRBC Flagged by Analyzer 0 % (0-5); Neutrophil # 6.76 X10^3/uL (2.7-7.7); Neutrophil % 89.7 % (47-70); POSITIVE DIFFERENTIAL YES; Platelet Count 174 K/mm3 (150-450); RBC Distribution Width SD 43.9 fl (35.1-43.9); White Blood Count 7.5 K/mm3 (4.4-11.0)
--- NOTE | 2023-05-05 22:10 | EX.ED.DYSGE1 ---
HPI History of Present Illness Chief Complaint: Chest Pain Detail of Chief Complaint: Chest pain central and epigastric Informant: patient Onset/Context/Timing Onset: Today (Approximately 1600) Context: Sudden Onset Timing: Continuous and Waxes and wanes Quality: Pressure discomfort Location: Centrals subxiphoid Current Severity: Moderate Maximum Severity: Severe Worsened by: Nothing Relieved by: Nothing Associated Symptoms Associated Symptoms: Nausea and dyspnea Narrative Narrative: Patient is an 78-year-old woman with history of atherosclerotic heart disease with placement of drug-eluting stent 2016, LAD, who presents with chest discomfort in the xiphoid region described as a discomfort pressure sensation. There is radiation to the left side of the neck and associated with nausea without vomiting and dyspnea. Patient's states she had done some hair. She also reports having a heavy somewhat greasy meal prior to the onset. She did not eat dinner this evening. This is not similar to the pain she experienced prior to placement of stent in the LAD March 22, 2016. At that time she felt her arms were heavy. There is a strong family history of cholelithiasis. 3 of her 5 children had the gallbladder out and multiple relatives had cholecystectomy. She denies intolerance to greasy or fried foods. She denies pain radiating to her back or intrascapular region. Patient denies leg pain, swelling discoloration. She has no history of VTE. Patient also endorses some congestion and postnasal drainage. This started today as well. stated she has not felt well for the past several days. She denies black or maroon-colored stool. She denies blood in her stool. There is no history of pancreatitis. 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 Anemia Arthritis Asthma Atherosclerosis of coronary artery of [place] heart without angina pectoris Atrophy of vagina Breast lump Bronchiectasis Cataracts, bilateral Coronary artery disease Cystocele, midline Essential hypertension Gammopathy GERD (gastroesophageal reflux disease) H/O transfusion of whole blood H/O: pneumonia High triglycerides History of polycythemia History of polycythemia vera Hives Hyperlipidemia Insomnia Iron deficiency Kidney disease Low calcium levels Mixed hyperlipidemia Neuropathy Osteopenia Osteopenia determined by x-ray Osteoporosis Recurrent UTI Restless leg syndrome Seasonal allergies Skin cancer Status post insertion of drug-eluting stent into left anterior descending (LAD) artery Stomach ulcer Thyroid disease Home Medications omeprazole 40 mg capsule,delayed release 40 mg PO DAILY REFLUX 04/01/13 [History Last Taken 11/13/18] aspirin 81 mg chewable tablet 81 mg PO DAILY@0800 HEART HEALTH 03/25/16 [History Last Taken Unknown] biotin 10,000 mcg capsule 10,000 mcg PO DAILY SUPPLEMENT 11/06/18 [History Last Taken Unknown] nitroglycerin 0.4 mg sublingual tablet 0.4 mg sublingual Q5M PRN Chest Pain #25 tabs 07/04/20 [Rx Last Taken Unknown] fluticasone furoate 200 mcg/actuation blister powder for inhalation (Arnuity Ellipta) 1 inh inhalation DAILY 10/04/20 [History Last Taken Unknown] montelukast 10 mg tablet 10 mg PO DAILY 01/20/21 [History Last Taken Unknown] gabapentin 300 mg capsule 300 mg PO BID 01/25/22 [History Last Taken Unknown] melatonin 5 mg tablet 5 mg PO HS PRN sleep 01/25/22 [History Last Taken Unknown] oxybutynin chloride 5 mg tablet,extended release 24 hr 5 mg PO DAILY 01/25/22 [History Last Taken Unknown] fluticasone propionate 50 mcg/actuation nasal spray,suspension (Flonase Allergy Relief) 1 spray intranasal DAILY PRN allergy symptoms 06/05/22 [History Last Taken Unknown] multivitamin 1 tab PO DAILY 07/24/22 [History Last Taken Unknown] amlodipine 2.5 mg tablet 2.5 mg PO DAILY #90 tabs 11/14/22 [Rx Last Taken Unknown] Prolia 60 mg/mL subcutaneous syringe (denosumab) 60 mg subcut [id number] #1 mL 12/06/22 [Rx Last Taken Unknown] prednisone 2.5 mg tablet 2.5 mg PO .COMPLEX #360 tabs 12/06/22 [Rx Last Taken Unknown] ezetimibe 10 mg tablet 10 mg PO DAILY #90 tabs 01/07/23 [Rx Last Taken Unknown] levothyroxine 88 mcg tablet 88 mcg PO .COMPLEX THYROID #14 tabs 03/21/23 [Rx Last Taken Unknown] fludrocortisone 0.1 mg tablet 0.1 mg PO DAILY #90 tabs 05/02/23 [Rx Last Taken Unknown] gemfibrozil 600 mg tablet 600 mg PO BID 05/05/23 [History Last Taken Unknown] Allergy/AdvReac Type Severity Reaction Status Date / Time ticagrelor [From Brilinta] Allergy Severe Shortness Verified 05/05/23 21:11 of breath amitriptyline Allergy Unknown Other Verified 05/05/23 21:11 bee venom protein (honey bee) Allergy Anaphylaxis Verified 05/05/23 21:11 house dust mite Allergy uknown Verified 05/05/23 21:11 povidone-iodine Allergy Rash Verified 05/05/23 21:11 [From Betadine] soap [From Betadine] Allergy Rash Verified 05/05/23 21:11 atorvastatin [From Lipitor] AdvReac Intermediate Pain in Verified 05/05/23 21:11 joints rosuvastatin calcium AdvReac Intermediate Pain in Verified 05/05/23 21:11 [From Crestor] joints metoprolol [From Toprol XL] AdvReac gi upset Verified 05/05/23 21:11 pramipexole [From Mirapex] AdvReac Low blood Verified 05/05/23 21:11 pressure simvastatin AdvReac Pain in Verified 05/05/23 21:11 [From Vytorin 10-10] joints Family History Mother Colon cancer Father Emphysema, unspecified Son Down's syndrome Sister Breast cancer Thyroid disorder Aunt Breast cancer Uncle Myocardial infarction, Onset Age: 55 Other Asthma Heart disease Hyperlipidemia Surgical History History of coronary artery stent placement (~03/22/16) History of hysterectomy History of left heart catheterization (01/20/19) History of tonsillectomy Joint removal bilateral great toe Social History Smoking Status: Former smoker Tobacco: How many years used: 10 alcohol intake: current alcohol intake frequency: holidays/special occasions only substance use type: does not use what type of physical activity do you participate in: other frequency: 1-2 times per week ROS ROS ED Constitutional Constitutional ED: Denies chills, fever(s), subjective, sweats or weight loss Eyes Eyes: Denies blurry vision, change in vision or diplopia ENT ENT ED: Reports rhinorrhea; Denies ear pain or sore throat Cardiovascular Cardiovascular: Reports chest pain; Denies orthopnea, palpitations, paroxysmal nocturnal dyspnea or racing heartbeat Respiratory/Chest Respiratory/Chest: Reports dyspnea; Denies cough, dyspnea on exertion, orthopnea, paroxysmal nocturnal dyspnea or sputum Gastrointestinal Gastrointestinal: Reports abdominal pain and nausea; Denies constipation, diarrhea, melena or vomiting Genitourinary Genitourinary ED: Denies dysuria, hematuria or urinary frequency Musculoskeletal Musculoskeletal: Denies arthralgias, back pain, myalgias or neck pain Integumentary Denies rash Neurologic Neurologic: Denies headache(s), paresthesias or weakness Hematologic/Lymphatic Hematologic/Lymphatic: Reports systems reviewed and no addt'l complaints, except as documented EXAM Physical Exam Const Vital Signs: 05/05/23 21:10 05/05/23 22:00 05/05/23 22:58 Temperature 97.4 F L 97.8 F 97.7 F L Temperature Source Temporal Temporal Temporal Pulse Rate 100 88 90 Respiratory Rate 16 19 H 18 Blood Pressure 117/52 L 103/55 L 110/52 L Blood Pressure Mean 73 71 71 Pulse Ox 95 99 95 Oxygen Delivery Method Room Air Room Air Room Air 05/05/23 23:09 05/05/23 23:17 05/05/23 23:24 Temperature Temperature Source Pulse Rate 89 91 89 Respiratory Rate Blood Pressure 101/56 L 103/54 L 105/55 L Blood Pressure Mean Pulse Ox Oxygen Delivery Method 05/06/23 00:00 05/06/23 00:42 05/06/23 01:14 Temperature 98.1 F Temperature Source Pulse Rate 78 80 82 Respiratory Rate 16 15 16 Blood Pressure 97/54 L 95/53 L 97/59 L Blood Pressure Mean 68 67 71 Pulse Ox 97 97 97 Oxygen Delivery Method Room Air Room Air Positive well nourished and well developed General Appearance ED: well developed and NAD; Negative for cyanotic, diaphoretic or pallor HEENT Reports moist mucous membranes HEENT Narrative: Head is atraumatic normocephalic. Nares patent. There may be slight drainage. Posterior pharynx normal. Ears normal. Eyes PERRL and EOMs intact bilaterally General Eye ED: Negative for pale conjunctiva or scleral icterus Neck no lymphadenopathy, supple and no JVD Chest Wall inspection of chest normal and palpation of chest normal Resp normal respiratory effort and clear to auscultation bilaterally Cardio regular rate, regular rhythm, S1 normal heart sound, S2 normal heart sound and no murmurs GI normal to inspection, nondistended, normoactive bowel sounds, non-distended and no masses; Negative for non-tender or hepatosplenomegaly Palpation: soft and tender LUQ, RUQ, McBurney's point, periumbilical, suprapubic, Wesley's sign and Obturator sign Back/Spine no CVA tenderness Extremity normal to inspection Extremity Narrative: There is no asymmetry, swelling, discoloration, leg vein distention, palpable cords or tenderness along the distribution of the deep venous system. General Extremety ED: Negative for edema or tenderness General Extremity: Negative for edema Neuro oriented x3, CN's II-XII intact bilaterally and no sensory deficits noted Sensorium / Orientation: alert Psych mental status grossly normal Skin no rashes or lesions noted, no wounds and skin turgor normal General Skin Exam: Negative for jaundice or pallor MDM MDM MDM Narrative Medical decision making narrative: Differential diagnosis would be cardiac versus noncardiac chest pain. Noncardiac chest pain would include biliary disease, peptic ulcer disease pulmonary disease. EKG, troponin with 2-hour troponin, CBC, comprehensive metabolic panel and lipase were obtained to delineate the cause of her symptoms. History & Record Review Additional record(s) reviewed:: Prior inpatient record (Deployment of drug-eluting stent March 22, 2016. She has had no intervention since.), Prior ED visit and Prior labs Lab Data Attestation: I reviewed the patient's lab results. Lab results narrative: CBC reveals slight shift. White count is normal. H&H is normal. Labs: Laboratory Results - last 24 hr 05/05/23 05/06/23 21:44 00:05 WBC 7.5 RBC 4.70 Hgb 14.2 Hct 43.0 MCV 91.5 MCH 30.2 MCHC 33.0 RDW Std Deviation 43.9 RDW Coeff of Asher 13.0 Plt Count 174 MPV 10.2 Immature Gran % (Auto) 0.300 Neut % (Auto) 89.7 H Lymph % (Auto) 4.0 L [place] % (Auto) 4.5 Eos % (Auto) 1.2 Baso % (Auto) 0.3 Absolute Neuts (auto) 6.8 Absolute Lymphs (auto) 0.30 L Nucleated RBC % 0 PT 13.6 INR 1.0 APTT 27.0 Sodium 139 Potassium 3.3 L Chloride 106 Carbon Dioxide 24.0 Anion Gap 9 BUN 13 Creatinine 0.76 Estim Creat Clear Calc 44.97 Est GFR (MDRD) Af Amer 94 Est GFR (MDRD) Non-Af 78 BUN/Creatinine Ratio 17.1 Glucose 115 H Calcium 9.2 Total Bilirubin 0.60 Direct Bilirubin 0.22 AST 29 ALT 46 Alkaline Phosphatase 47 Troponin I High Sens 59 H 72 H Total Protein 6.7 Albumin 3.5 Globulin 3.2 Lipase 20 Radiography Chest X-Ray - ED: 1 View and Read by ED Physician (Patient has chronic changes noted. There is no evidence of heart failure, effusion or infiltrate. Cardiac silhouette and size normal. Hilar regions normal. Osseous structures unremarkable. This independent reviewed interpreted by me., [id number]) Diagnostic Testing: Clinical Impression(s) from Imaging Studies Chest X-Ray 05/05/23 22:20 IMPRESSION: There are findings consistent with COPD. There is no evidence of acute chest disease. Electronically Signed: Oscar Cotton MD at 22:36 EDT , EKG Initial EKG: Attestation: I personally reviewed and interpreted this EKG as follows: Interpretation: Sinus Rhythm (EKG is normal with pain. Rate is 92. MT interval is 140 ms per cures duration 74 ms per QT durations 112 ms. [place] is normal.) Treatment and Re-Evaluation :: I was informed by patient's nurse that her pain is 8 out of 10. First troponin is elevated. She has had normal troponins in the past. In light of this will treat with nitroglycerin series. If this does not alleviate her pain we will start her on nitro drip and contact hospitalist and she will require admission. 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, Discussing w/Consultants and Arranging Admission or Transfer Discharge Plan Triage Chief Complaint: Chest Pain ED Provider: Floyd Anne Dx/Rx/DC Orders Clinical Impression: ACS (acute coronary syndrome), Adrenal cortical insufficiency, GERD (gastroesophageal reflux disease), Mixed hyperlipidemia, Polycythemia, Elevated troponin I level Prescriptions: No Action nitroglycerin 0.4 mg tablet, sublingual 0.4 mg SUBLINGUAL Q5M PRN (Reason: Chest Pain) Qty: 25 3RF Arnuity Ellipta 200 mcg/actuation blister with device 1 inh inhalation DAILY montelukast 10 mg tablet 10 mg PO DAILY melatonin 5 mg tablet 5 mg PO HS PRN (Reason: sleep) gabapentin 300 mg capsule 300 mg PO BID Hold Instructions: MD Ordered oxybutynin chloride 5 mg tablet extended release 24hr 5 mg PO DAILY fluticasone propionate [Flonase Allergy Relief] 50 mcg/actuation spray,suspension 1 spray intranasal DAILY PRN (Reason: allergy symptoms) Rx Instructions: administer into each nostril Prolia 60 mg/mL syringe 60 mg subcut [id number] Qty: 1 1RF prednisone 2.5 mg tablet 2.5 mg PO .COMPLEX Qty: 360 3RF Rx Instructions: 2.5 mg PO take 2 tabs in the am and 1 tab in the afternoon; take more on sick days multivitamin Tablet 1 tab PO DAILY omeprazole 40 MG capsule 40 mg PO DAILY Patient Comments: GERD aspirin 81 MG tablet,chewable 81 mg PO DAILY@0800 biotin 10,000 MCG capsule 10,000 mcg PO DAILY gemfibrozil 600 mg tablet 600 mg PO BID amlodipine 2.5 mg tablet 2.5 mg PO DAILY Qty: 90 3RF ezetimibe 10 mg tablet 10 mg PO DAILY Qty: 90 3RF levothyroxine 88 mcg tablet 88 mcg PO .COMPLEX Qty: 14 0RF Rx Instructions: 88 mcg PO 1 tab mon-sat, 1/2 tab on Sun; fludrocortisone 0.1 mg tablet 0.1 mg PO DAILY Qty: 90 1RF Primary Care Provider: Javy Hilliard Referrals: Javy Hilliard MD [Primary Care Provider] -
--- NOTE | 2023-05-05 22:20 | RAD_ITS ---
STUDY: X-RAY CHEST REASON FOR EXAM: Female, 78 years old. chest pain dyspnea TECHNIQUE: Frontal and lateral views of the chest. COMPARISON: 11/02/2022. FINDINGS: There is hyperinflation of the lungs consistent with chronic obstructive lung disease (COPD). Stable bilateral linear scars. No infiltrates. No effusions. There is no demonstrated pleural abnormality. Normal size heart. Normal mediastinum and bowen. Normal visualized pulmonary arteries. There is atherosclerotic calcification of the aortic arch with tortuosity. There are diffuse degenerative changes of the visualized thoracic spine. Mild compression fracture of T8. Moderate compression fracture of L1. The present previously. Normal visualized ribs, clavicles, and shoulders. There is no demonstrated abnormality of the visualized soft tissue structures of the upper abdomen. RAD/Chest PA and Lateral IMPRESSION: There are findings consistent with COPD. There is no evidence of acute chest disease. Electronically Signed: Oscar Cotton MD at 22:36 EDT ,
[2023-05-05 22:27] LABS: AST(SGOT) 29 U/L (15-37); Alanine Aminotransfer ALT/SGPT 46 U/L (13-56); Albumin, Serum 3.5 g/dL (3.2-5.0); Alkaline Phosphatase 47 U/L (45-117); Anion Gap 9 (5-15); BUN 13 mg/dL (7-18); BUN/Creat Ratio 17.1 RATIO (10-20); Bilirubin, Direct 0.22 mg/dL (0.00-0.30); Calcium,Total 9.2 mg/dL (8.5-10.1); Chloride 106 mmol/L (98-107); Creatinine, Serum 0.76 mg/dL (0.55-1.02); EST Glomerular Filtration Rate 78 mL/min (>60); Est Glom Filt Rate - Afr Amer 94 mL/min (>60); Estimated Creatinine Clearance 44.97 ml/min; Globulin 3.2 g/dL (2.2-4.2); Glucose 115 mg/dL (74-106); Lipase 20 U/L (13-75); Potassium 3.3 mmol/L (3.5-5.1); Protein, Total 6.7 g/dL (6.4-8.2); Sodium Level 139 mmol/L (136-145); Troponin-I HS (w/2H Reflex) 59 pg/mL (3.0-54.0)
[2023-05-05 22:58] VITALS: BP 110/52; PULSE 90; RESP 18; TEMP 36.5; O2SAT 95
[2023-05-05 23:09] VITALS: BP 101/56; PULSE 89
[2023-05-05] MEDS: Nitroglycerin SL (ED/IMG/CATH) 0.4 MG TABLET SL ×3 (23:09→23:24)
[2023-05-05 23:17] VITALS: BP 103/54; PULSE 91
[2023-05-05 23:24] VITALS: BP 105/55; PULSE 89
[2023-05-06] VITALS (15 sets, daily range): BP systolic 84–110; BP diastolic 47–66; PULSE 62–95; RESP 14–17; TEMP 36.7–37.2; O2SAT 92–100; BMI 25.1
[2023-05-06] LABS: Reflex Troponin-HS? (from REC) Y
[2023-05-06 00:36] LABS: Troponin-I HS 72 pg/mL (3.0-54.0)
[2023-05-06 00:54] LABS: Prothrombin Time (Protime)PT. 13.6 SECONDS (11.7-14.9)
[2023-05-06] MEDS: Heparin Injection (Vial) 5,000 UNIT/ML VIAL 3500 UNIT IV (01:06)
[2023-05-06] MEDS: HEPARIN/D5w 25,000 UNITS 25,000 UNITS/250 ML IV.SOLN. 7 UNITS CONT INF (01:09)
--- NOTE | 2023-05-06 01:16 | HP.PCM.HOS_ITS ---
[facility] - General General Date of Admission: 05/06/23 Date of Service: 05/06/23 Chief Complaint: Chest pain. 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 Ms. Solano reports her symptoms began approximately 4 PM on May 05, 2023 with the abrupt onset of chest pain that was substernal, pressure-like, radiating into the left side of her neck, [id number] and was moderate to severe with nothing seeming to make the pain better or worse. She also admits to associated shortness of breath with nausea and some associated discomfort in her epigastrium. She denies related fever, chills, vomiting, lower extremity swelling or pain. She states that her constellation of symptoms is ominously similar to the angina that heralded her previous stent placement in 2016. In the ER she was noted to have an elevated initial troponin of 59 pg/mL present on admission that [place] to 72 pg/mL consistent with suspected non-ST elevation IN in this patient with a known history of coronary artery disease and previous stent placement and she was then admitted to the PCU for ongoing care for stay that is expected to be greater than 48 hours. 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 Anemia Arthritis Asthma Atherosclerosis of coronary artery of [place] heart without angina pectoris Atrophy of vagina Breast lump Bronchiectasis Cataracts, bilateral Coronary artery disease Cystocele, midline Essential hypertension Gammopathy GERD (gastroesophageal reflux disease) H/O transfusion of whole blood H/O: pneumonia High triglycerides History of polycythemia History of polycythemia vera Hives Hyperlipidemia Insomnia Iron deficiency Kidney disease Low calcium levels Mixed hyperlipidemia Neuropathy Osteopenia Osteopenia determined by x-ray Osteoporosis Recurrent UTI Restless leg syndrome Seasonal allergies Skin cancer Status post insertion of drug-eluting stent into left anterior descending (LAD) artery Stomach ulcer Thyroid disease Home Medications omeprazole 40 mg capsule,delayed release 40 mg PO DAILY REFLUX 04/01/13 [History Last Taken 11/13/18] aspirin 81 mg chewable tablet 81 mg PO DAILY@0800 HEART [facility] 03/25/16 [History Last Taken Unknown] biotin 10,000 mcg capsule 10,000 mcg PO DAILY SUPPLEMENT 11/06/18 [History Last Taken Unknown] nitroglycerin 0.4 mg sublingual tablet 0.4 mg sublingual Q5M PRN Chest Pain #25 tabs 07/04/20 [Rx Last Taken Unknown] fluticasone furoate 200 mcg/actuation blister powder for inhalation (Arnuity Ellipta) 1 inh inhalation DAILY 10/04/20 [History Last Taken Unknown] montelukast 10 mg tablet 10 mg PO DAILY 01/20/21 [History Last Taken Unknown] gabapentin 300 mg capsule 300 mg PO BID 01/25/22 [History Last Taken Unknown] melatonin 5 mg tablet 5 mg PO HS PRN sleep 01/25/22 [History Last Taken Unknown] oxybutynin chloride 5 mg tablet,extended release 24 hr 5 mg PO DAILY 01/25/22 [History Last Taken Unknown] fluticasone propionate 50 mcg/actuation nasal spray,suspension (Flonase Allergy Relief) 1 spray intranasal DAILY PRN allergy symptoms 06/05/22 [History Last Taken Unknown] multivitamin 1 tab PO DAILY 07/24/22 [History Last Taken Unknown] amlodipine 2.5 mg tablet 2.5 mg PO DAILY #90 tabs 11/14/22 [Rx Last Taken Unknown] Prolia 60 mg/mL subcutaneous syringe (denosumab) 60 mg subcut [id number] #1 mL 12/06/22 [Rx Last Taken Unknown] prednisone 2.5 mg tablet 2.5 mg PO .COMPLEX #360 tabs 12/06/22 [Rx Last Taken Unknown] ezetimibe 10 mg tablet 10 mg PO DAILY #90 tabs 01/07/23 [Rx Last Taken Unknown] levothyroxine 88 mcg tablet 88 mcg PO .COMPLEX THYROID #14 tabs 03/21/23 [Rx Last Taken Unknown] fludrocortisone 0.1 mg tablet 0.1 mg PO DAILY #90 tabs 05/02/23 [Rx Last Taken Unknown] gemfibrozil 600 mg tablet 600 mg PO BID 05/05/23 [History Last Taken Unknown] Allergy/AdvReac Type Severity Reaction Status Date / Time ticagrelor [From Brilinta] Allergy Severe Shortness Verified 05/05/23 21:11 of breath amitriptyline Allergy Unknown Other Verified 05/05/23 21:11 bee venom protein (honey bee) Allergy Anaphylaxis Verified 05/05/23 21:11 house dust mite Allergy uknown Verified 05/05/23 21:11 povidone-iodine Allergy Rash Verified 05/05/23 21:11 [From Betadine] soap [From Betadine] Allergy Rash Verified 05/05/23 21:11 atorvastatin [From Lipitor] AdvReac Intermediate Pain in Verified 05/05/23 21:11 joints rosuvastatin calcium AdvReac Intermediate Pain in Verified 05/05/23 21:11 [From Crestor] joints metoprolol [From Toprol XL] AdvReac gi upset Verified 05/05/23 21:11 pramipexole [From Mirapex] AdvReac Low blood Verified 05/05/23 21:11 pressure simvastatin AdvReac Pain in Verified 05/05/23 21:11 [From Vytorin 10-10] joints Family History Mother Colon cancer Father Emphysema, unspecified Son Down's syndrome Sister Breast cancer Thyroid disorder Aunt Breast cancer Uncle Myocardial infarction, Onset Age: 55 Other Asthma Heart disease Hyperlipidemia Surgical History History of coronary artery stent placement (~03/22/16) History of hysterectomy History of left heart catheterization (01/20/19) History of tonsillectomy Joint removal bilateral great toe Social History Smoking Status: Former smoker Tobacco: How many years used: 10 alcohol intake: current alcohol intake frequency: holidays/special occasions only substance use type: does not use what type of physical activity do you participate in: other frequency: 1-2 times per week ROS ROS Narrative Review of systems: General: Patient denies fever or chills. HENT: Denies headache, denies stuffy nose, denies sore throat EYES: Denies changes in vision or discharge from eyes. Resp: Patient admits to shortness of breath but denies cough. Cardiac: Patient admits to chest pain but denies palpitations. GI: Denies abdominal pain, denies changes in bowel, had some nausea : Denies changes in urination Extremity: Denies swelling Musculoskeletal: Feels somewhat generally weak and unwell Neuro: Patient denies headache, paresthesias or focal neurologic deficits. Heme: Denies any bleeding or bruising Skin: Denies rashes Psychiatric: No complaints voiced related to uncontrolled depression or anxiety. Endocrine: No polyuria, polydipsia or polyphagia. The rest of the 14 point ROS was negative except for positives in HPI. Vital Signs Vital Signs Vital Signs: 05/05/23 21:10 05/05/23 22:00 05/05/23 22:58 Temperature 97.4 F L 97.8 F 97.7 F L Temperature Source Temporal Temporal Temporal Pulse Rate 100 88 90 Respiratory Rate 16 19 H 18 Blood Pressure 117/52 L 103/55 L 110/52 L Blood Pressure Mean 73 71 71 Pulse Ox 95 99 95 Oxygen Delivery Method Room Air Room Air Room Air 05/05/23 23:09 05/05/23 23:17 05/05/23 23:24 Temperature Temperature Source Pulse Rate 89 91 89 Respiratory Rate Blood Pressure 101/56 L 103/54 L 105/55 L Blood Pressure Mean Pulse Ox Oxygen Delivery Method 05/06/23 00:00 05/06/23 00:42 Temperature Temperature Source Pulse Rate 78 80 Respiratory Rate 16 15 Blood Pressure 97/54 L 95/53 L Blood Pressure Mean 68 67 Pulse Ox 97 97 Oxygen Delivery Method Room Air Room Air Weight Weight: 129 lb 7 oz Body Mass Index (BMI) 26.1 Physical Exam Const alert, oriented x3, no apparent distress and average body habitus General Appearance: cooperative HEENT normocephalic, head/scalp atraumatic, hearing grossly normal bilaterally and moist oral mucous membranes Eyes PERRL and EOMs intact bilaterally Neck no lymphadenopathy and supple Resp normal respiratory effort, no retractions, no use of accessory muscles and clear to auscultation bilaterally Cardio regular rate and regular rhythm GI normal to inspection, nondistended, normoactive bowel sounds, soft to palpation, non-tender and non-distended Extremity normal to inspection, full ROM and no clubbing, cyanosis or edema Skin Skin Narrative: Patient has no evidence of rash, jaundice or pallor. Neuro oriented x3, CN's II-XII intact bilaterally, moves all extremities and no focal motor deficits Sensorium / Orientation: awake, alert, oriented to person, oriented to place and oriented to time Speech: speech normal Motor Exam: strength 5/5 throughout Psych affect normal Results Medical Records Data Attestation: I reviewed the patient's medical records Lab / Micro Data Attestation: I reviewed the patient's lab results. 05/05/23 21:44 05/05/23 21:44 Labs: Laboratory Results - last 24 hr 05/05/23 21:44: WBC 7.5, RBC 4.70, Hgb 14.2, Hct 43.0, MCV 91.5, MCH 30.2, MCHC 33.0, RDW Std Deviation 43.9, RDW Coeff of Asher 13.0, Plt Count 174, MPV 10.2, Immature Gran % (Auto) 0.300, Neut % (Auto) 89.7 H, Lymph % (Auto) 4.0 L, [place] % (Auto) 4.5, Eos % (Auto) 1.2, Baso % (Auto) 0.3, Absolute Neuts (auto) 6.8, Absolute Lymphs (auto) 0.30 L, Nucleated RBC % 0, PT 13.6, INR 1.0, APTT 27.0, Sodium 139, Potassium 3.3 L, Chloride 106, Carbon Dioxide 24.0, Anion Gap 9, BUN 13, Creatinine 0.76, Estim Creat Clear Calc 44.97, Est GFR (MDRD) Af Amer 94, Est GFR (MDRD) Non-Af 78, BUN/Creatinine Ratio 17.1, Glucose 115 H, Calcium 9.2, Total Bilirubin 0.60, Direct Bilirubin 0.22, AST 29, ALT 46, Alkaline Phosphatase 47, Troponin I High Sens 59 H, Total Protein 6.7, Albumin 3.5, Globulin 3.2, Lipase 20 05/06/23 00:05: Troponin I High Sens 72 H Imaging Radiology Impression Chest X-Ray 05/05/23 22:20 IMPRESSION: There are findings consistent with COPD. There is no evidence of acute chest disease. Electronically Signed: Oscar Cotton MD at 22:36 EDT , Assessment & Plan Assessment/Plan (1) ACS (acute coronary syndrome): (2) Chest pain: QUALIFIERS: Chest pain type: unspecified Qualified Code(s): R07.9 - Chest pain, unspecified (3) Coronary artery disease: QUALIFIERS: Associated angina: with unspecified form of angina Coronary Disease-Associated Artery/Lesion type: [place] artery [place] vs. transplanted heart: [place] heart Qualified Code(s): I25.119 - Atherosclerotic heart disease of [place] coronary artery with unspecified angina pectoris (4) Dyslipidemia: PLAN: Plan 1. Chest pain with mildly elevated troponin in the setting of known coronary artery disease with previous LAD stent (2017); with intolerance to Brilinta consistent with suspected early non-ST elevation IN - Admit to PCU. Serialize troponin. Continue aspirin and add Plavix plus resume IV heparin drip begun in the ER. We will avoid statin with patient having previously documented into [place] to multiple statin agents. Check echocardiogram to evaluate left ventricular ejection fraction. Give sublingual nitroglycerin as needed anginal pain. Give morphine as needed for severe level 6-10 out of 10 pain. Finally, we will consult lock stitch channeler on-call to see this patient on rounds in the a.m. for further recommendations regarding potential left heart cath with help appreciated in advance. 2. Essential hypertension - Continue home regimen plus give as needed IV hydralazine for systolic blood pressure greater than 160 mmHg. 3. Hyperlipidemia; with intolerance to multiple statins - Resume ezetimibe and gemfibrozil plus check lipid profile this admission in light of #1. 4. Hypothyroidism - Continue Synthroid as previous plus check TSH. 5. 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 6. History of polycythemia vera and chronic anemia - Stable with hemoglobin of 14.2 g/dL present on admission. 7. Neuropathy - Continue current management. 8. Overweight; with BMI of 26.1 this admission - Weight loss will be recommended. 9. Asthma - Stable with no evidence of flare at this time. Continue as needed nebulizers. 10. Overactive bladder - Resume oxybutynin. 11. History of bronchiectasis - Stable. 12. GERD; with history of peptic ulcer disease - Continue PPI. 13. Osteoporosis - Restart Prolia as outpatient. 14. Osteoarthritis - Give Tylenol as needed. 15. DVT prophylaxis - Patient given IV heparin for #1. Total time: Approximately 55 minutes. Charges/Coding Visit Charges Inpatient E&M: 91376 Init Hosp L2
--- NOTE | 2023-05-06 01:44 | EKG12_ITS ---
Test Reason : admit to floor Blood Pressure : / mmHG Vent. Rate : 073 BPM Atrial Rate : 073 BPM P-R Int : 142 ms QRS Dur : 084 ms QT Int : 372 ms P-R-T Axes : 057 027 062 degrees QTc Int : 409 ms Normal sinus rhythm Normal ECG When compared with ECG of 05-MAY-2023 21:20, MANUAL COMPARISON REQUIRED, DATA IS UNCONFIRMED Confirmed by ALEXANDRO LANG, PRAVEENA ([id number]), field map editor OYSEF ROSS ([id number]) on 05/07/2023 6:54:43 AM Referred By: Confirmed By:PRAVEENA MC MD
--- NOTE | 2023-05-06 02:35 | ECHOD_ITS ---
Reason For Study: CHEST PAIN Procedure This was a 2D Doppler, Color Flow transthoracic echocardiogram. Exam performed portable in patient room. Left Ventricle Normal LV size. Left ventricular systolic function is normal. The left ventricular ejection fraction is 60 %. Stage 2 diastolic dysfunction. No regional wall motion abnormalities noted. Right Ventricle Normal RV size. Normal systolic function. Atria Normal left atrium. Normal right atrium. Mitral Valve Normal mitral valve. Mild (1+) eccentric mitral valve insufficiency. Tricuspid Valve Normal tricuspid valve. Mild (1+) eccentric tricuspid valve insufficiency. Pulmonary artery systolic pressure is 30 mmHg. Aortic Valve Normal aortic valve. Trisinus/trileaflet aortic valve. Pulmonic Valve Normal pulmonic valve. Great Vessels Normal aortic root. The pulmonary artery is normal size. Inferior vena cava collapse with respiration. Pericardium/Pleural No pericardial effusion. MMode/2D Measurements & Calculations LVIDd: 4.2 cm IVSd: 0.97 cm LAV(MOD-bp): 51.1 ml LVIDs: 2.8 cm LVPWd: 1.0 cm LAV(MOD-bp) Indexed: 33.8 ml/m2 RVDd: 2.9 cm FS: 33.4 % LAV(MOD-sp2): 51.1 ml LAV(MOD-sp4): 51.5 ml SV(MOD-sp4): 26.1 ml SV(sp4-el): 27.9 ml LVAd ap4: 19.4 cm2 LVLd ap4: 7.1 cm EDV(MOD-sp4): 43.7 ml EDV(sp4-el): 45.1 ml LVAs ap4: 10.8 cm2 LVLs ap4: 5.7 cm ESV(MOD-sp4): 17.6 ml ESV(sp4-el): 17.2 ml EF(MOD-sp4): 59.7 % EF(sp4-el): 61.9 % LA A4 area: 19.3 cm2 RA A4 area: 11.2 cm2 TAPSE: 2.0 cm Time Measurements MV dec time: 0.16 sec Doppler Measurements & Calculations MV E max delvin: 59.7 cm/sec Lat Peak E' Delvin: 9.8 cm/sec Med Peak E' Delvin: 6.1 cm/sec MV A max delvin: 54.1 cm/sec E/E' lat: 6.1 E/E' med: 9.8 MV E/A: 1.1 MV V2 max: 67.1 cm/sec MV dec slope: 370.1 cm/sec2 Ao V2 max: 128.5 cm/sec MV max P.8 mmHg Ao max P.6 mmHg MV V2 mean: 41.7 cm/sec Ao V2 mean: 89.9 cm/sec MV mean P.77 mmHg Ao mean P.7 mmHg MV V2 VTI: 21.0 cm Ao V2 VTI: 26.5 cm AV (velocity ratio): 0.80 LV V1 max: 109.5 cm/sec PA V2 max: 71.4 cm/sec TR max delvin: 257.4 cm/sec LV V1 max P.8 mmHg PA V2 mean: 51.8 cm/sec TR max P.5 mmHg LV V1 mean P.7 mmHg LV V1 mean: 78.2 cm/sec LV V1 VTI: 21.3 cm ECHO/Echo Complete Interpretation Summary Normal LV size. Left ventricular systolic function is normal. The left ventricular ejection fraction is 60 %. Stage 2 diastolic dysfunction. Mild (1+) eccentric mitral valve insufficiency. Mild (1+) eccentric tricuspid valve insufficiency. Ordering Physician: Ammon Guerrero Referring Physician: SEMAJ GARZA Performed By: Leslie Oliveira RCS
[2023-05-06 03:57] LABS: Troponin-I HS 63 pg/mL (3.0-54.0)
[2023-05-06] MEDS: Levothyroxine 88 MCG Tablet PO (05:39)
[2023-05-06] MEDS: Gemfibrozil 600 MG Tablet PO (05:39)
[2023-05-06] MEDS: Aspirin 81 MG TAB.CHEW PO (05:40)
[2023-05-06] MEDS: amLODIPine 2.5 MG Tablet PO (05:40)
[2023-05-06 07:24] LABS: Hematocrit 41.5 % (37-47); Mean Corp Hgb Conc 33.7 g/dL (32-36); Mean Corpuscular Hgb 30.5 pg (27.0-32.0); Mean Corpuscular Volume 90.4 fL (81-99); Platelet Count 178 K/mm3 (150-450); RBC Distribution Width CV 12.9 % (11.6-14.6); RBC Distribution Width SD 42.7 fl (35.1-43.9); Red Blood Count 4.59 M/mm3 (4.2-5.4); White Blood Count 6.9 K/mm3 (4.4-11.0)
[2023-05-06 07:47] LABS: Partial Thromboplast Time 45.7 Seconds (24.1-36.2)
--- NOTE | 2023-05-06 07:47 | PN.HOSP_ITS ---
Reason for Visit Reason for Visit: Diagnoses Hyperlipidemia, unspecified (05/06/23) Acute ischemic heart disease, unspecified (05/06/23) Atherosclerotic heart disease of [place] coronary artery without angina pectoris (05/06/23) Atherosclerotic heart disease of [place] coronary artery with unspecified angina pectoris (05/06/23) Chest pain, unspecified (05/06/23) Other specified abnormal findings of blood chemistry (05/06/23) Subjective Subjective No chest pain. Objective Data Objective Data Vital Signs: Vital Signs Temp Pulse Resp BP Pulse Ox O2 Del Method 37.2 C 80 14 104/56 L 96 Room Air 05/06/23 03:18 05/06/23 03:18 05/06/23 03:18 05/06/23 03:18 05/06/23 03:20 05/06/23 03:20 Oxygen Delivery Method Room Air Weight: 56.5 kg Body Mass Index (BMI) 25.1 Intake & Output: Intake and Output for Last 24 Hours 05/04/23 05/05/23 05/06/23 23:59 23:59 23:59 Intake Total 60 / 60 Balance 60 / 60 Lab / Micro Data 05/06/23 07:07 05/06/23 07:07 Labs: Laboratory Results - last 24 hr 05/05/23 21:44: WBC 7.5, RBC 4.70, Hgb 14.2, Hct 43.0, MCV 91.5, MCH 30.2, MCHC 33.0, RDW Std Deviation 43.9, RDW Coeff of [place]her 13.0, Plt Count 174, MPV 10.2, Immature Gran % (Auto) 0.300, Neut % (Auto) 89.7 H, Lymph % (Auto) 4.0 L, [place] % (Auto) 4.5, Eos % (Auto) 1.2, Baso % (Auto) 0.3, Absolute Neuts (auto) 6.8, Absolute Lymphs (auto) 0.30 L, Nucleated RBC % 0, PT 13.6, INR 1.0, APTT 27.0, Sodium 139, Potassium 3.3 L, Chloride 106, Carbon Dioxide 24.0, Anion Gap 9, BUN 13, Creatinine 0.76, Estim Creat Clear Calc 44.97, Est GFR (MDRD) Af Amer 94, Est GFR (MDRD) Non-Af 78, BUN/Creatinine Ratio 17.1, Glucose 115 H, Calcium 9.2, Total Bilirubin 0.60, Direct Bilirubin 0.22, AST 29, ALT 46, Alkaline Phosphatase 47, Troponin I High Sens 59 H, Total Protein 6.7, Albumin 3.5, Globulin 3.2, Lipase 20 05/06/23 00:05: Troponin I High Sens 72 H 05/06/23 03:10: Troponin I High Sens 63 H 05/06/23 07:07: WBC 6.9, RBC 4.59, Hgb 14.0, Hct 41.5, MCV 90.4, MCH 30.5, MCHC 33.7, RDW Std Deviation 42.7, RDW Coeff of [place]her 12.9, Plt Count 178, MPV 10.0 Radiography Diagnostic Testing: Radiology Impression Chest X-Ray 05/05/23 22:20 IMPRESSION: There are findings consistent with COPD. There is no evidence of acute chest disease. Electronically Signed: Oscar Cotton MD at 22:36 EDT , Physical Exam Const alert and no apparent distress Resp normal respiratory effort, no retractions, no use of accessory muscles and clear to auscultation bilaterally Cardio regular rate, regular rhythm, S1 normal heart sound and S2 normal heart sound GI normal to inspection, nondistended, normoactive bowel sounds, soft to palpation, non-tender and non-distended Extremity normal to inspection Neuro Sensorium / Orientation: awake and alert Assessment & Plan Assessment/Plan (1) ACS (acute coronary syndrome): (2) Chest pain: QUALIFIERS: Chest pain type: unspecified Qualified Code(s): R07.9 - Chest pain, unspecified (3) Coronary artery disease: QUALIFIERS: Associated angina: with unspecified form of angina Coronary Disease-Associated Artery/Lesion type: [place] artery [place] vs. transplanted heart: [place] heart Qualified Code(s): I25.119 - Atherosclerotic heart disease of [place] coronary artery with unspecified angina pectoris (4) Dyslipidemia: PLAN: Plan Unstable angina * troponin elevated, slightly * check echo * cath showed minimal LAD disease. * follow up echo * ASA, clopidogrel Chronic conditions: * Essential hypertension - Continue home regimen plus give as needed IV hydralazine for systolic blood pressure greater than 160 mmHg. * Hyperlipidemia; with intolerance to multiple statins - Resume ezetimibe and gemfibrozil plus check lipid profile this admission in light of #1. * Hypothyroidism - Continue Synthroid as previous plus check TSH. * History of [place]'s disease * History of polycythemia vera and chronic anemia - Stable with hemoglobin of 14.2 g/dL present on admission. * Neuropathy - Continue current management. * Overweight; with BMI of 26.1 this admission - Weight loss will be recommended. * Asthma - Stable with no evidence of flare at this time. Continue as needed nebulizers. * Overactive bladder - Resume oxybutynin. * History of bronchiectasis - Stable. * GERD; with history of peptic ulcer disease - Continue PPI. * Osteoporosis - Restart Prolia as outpatient. * Osteoarthritis - Give Tylenol as needed. DVT prophylaxis - Patient given IV heparin for #1. Charges/Coding Visit Charges Inpatient E&M: 96459 Subs Hosp L2
[2023-05-06 08:01] LABS: AST(SGOT) 24 U/L (15-37); Alanine Aminotransfer ALT/SGPT 38 U/L (13-56); Albumin, Serum 3.2 g/dL (3.2-5.0); Alkaline Phosphatase 42 U/L (45-117); Anion Gap 8 (5-15); BUN 12 mg/dL (7-18); BUN/Creat Ratio 19.5 RATIO (10-20); Calcium,Total 8.6 mg/dL (8.5-10.1); Chloride 108 mmol/L (98-107); Cholesterol 145 mg/dL (200); Creatinine, Serum 0.62 mg/dL (0.55-1.02); EST Glomerular Filtration Rate 99 mL/min (>60); Est Glom Filt Rate - Afr Amer 120 mL/min (>60); Estimated Creatinine Clearance 44.18 ml/min; Globulin 3.1 g/dL (2.2-4.2); Glucose 96 mg/dL (74-106); High Density Lipoprotein 35 mg/dL; Protein, Total 6.3 g/dL (6.4-8.2); Sodium Level 140 mmol/L (136-145); Thyroid Stim Hormone (TSH) 4.29 uIU/mL (0.358-3.74); Triglycerides 98 mg/dL; Very Low Density Lipoprotein 20 mg/dL (5-40)
[2023-05-06 08:05] LABS: D-Dimer Quantitative (DVT/PE) 1.18 FEU/ug/m (0.27-0.49)
--- NOTE | 2023-05-06 09:42 | CON.PCM.CA_ITS ---
Assessment & Plan Assessment/Plan (1) Chest pain: QUALIFIERS: Chest pain type: unspecified Qualified Code(s): R07.9 - Chest pain, unspecified PLAN: Patient presents with chest discomfort. There are some features which are mildly atypical. However she does have elevated cardiac enzymes my recommendation is to assess her coronary anatomy with a cardiac catheterization. If the above is normal then I would not make any changes. The risk benefits alternatives have been explained to him he understands and agrees to proceed. Addendum: Left heart catheterization demonstrated normal left main coronary artery. Left anterior descending artery has a 50 to 60% lesion prior to the stent and a tiny diagonal branch with high-grade stenosis. The stent is patent. Left circumflex artery with no significant stenosis. Dominant large right coronary artery with no significant stenosis. Preserved left ventricular ejection fraction. Based on the above radiographic findings we will suggest aggressive medical therapy. (2) Essential hypertension: PLAN: Her blood pressure appears to be under decent control at this particular time. I would not make any particular changes. HPI Consult Data Date of Consult: 05/06/23 HPI Narrative HPI Narrative: FABIANO SOLANO, is a 78 F who presents to the emergency room with chest discomfort which she described as in her epigastrium with mild radiation. She has a history of known coronary artery disease status post PCI of the left anterior descending artery in 2017 and follow-up cardiac catheterization 2019 demonstrating patency of the above named stent. She described this discomfort has been similar to her previous episodes. She has also been recently diagnosed with adrenal insufficiency and on low-dose steroids. She denies any dizziness or diaphoresis near syncope or syncope. She was seen in the emergency room and electrocardiogram demonstrated sinus rhythm with no acute changes. However her troponins were noted to be elevated and she was admitted as accelerated angina. At this particular time she denies any cardiac symptoms. 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 Anemia Arthritis Asthma Atherosclerosis of coronary artery of [place] heart without angina pectoris Atrophy of vagina Breast lump Bronchiectasis Cataracts, bilateral Coronary artery disease Cystocele, midline Essential hypertension Gammopathy GERD (gastroesophageal reflux disease) H/O transfusion of whole blood H/O: pneumonia High triglycerides History of polycythemia History of polycythemia vera Hives Hyperlipidemia Insomnia Iron deficiency Kidney disease Low calcium levels Mixed hyperlipidemia Neuropathy Osteopenia Osteopenia determined by x-ray Osteoporosis Recurrent UTI Restless leg syndrome Seasonal allergies Skin cancer Status post insertion of drug-eluting stent into left anterior descending (LAD) artery Stomach ulcer Thyroid disease Home Medications omeprazole 40 mg capsule,delayed release 40 mg PO DAILY REFLUX 04/01/13 [History Last Taken 11/13/18] aspirin 81 mg chewable tablet 81 mg PO DAILY@0800 HEART HEALTH 03/25/16 [History Last Taken Unknown] biotin 10,000 mcg capsule 10,000 mcg PO DAILY SUPPLEMENT 11/06/18 [History Last Taken Unknown] nitroglycerin 0.4 mg sublingual tablet 0.4 mg sublingual Q5M PRN Chest Pain #25 tabs 07/04/20 [Rx Last Taken Unknown] fluticasone furoate 200 mcg/actuation blister powder for inhalation (Arnuity Ellipta) 1 inh inhalation DAILY 10/04/20 [History Last Taken Unknown] montelukast 10 mg tablet 10 mg PO DAILY 01/20/21 [History Last Taken Unknown] gabapentin 300 mg capsule 300 mg PO BID 01/25/22 [History Last Taken Unknown] melatonin 5 mg tablet 5 mg PO HS PRN sleep 01/25/22 [History Last Taken Unknown] oxybutynin chloride 5 mg tablet,extended release 24 hr 5 mg PO DAILY 01/25/22 [History Last Taken Unknown] fluticasone propionate 50 mcg/actuation nasal spray,suspension (Flonase Allergy Relief) 1 spray intranasal DAILY PRN allergy symptoms 06/05/22 [History Last Taken Unknown] multivitamin 1 tab PO DAILY 07/24/22 [History Last Taken Unknown] amlodipine 2.5 mg tablet 2.5 mg PO DAILY #90 tabs 11/14/22 [Rx Last Taken Unknown] Prolia 60 mg/mL subcutaneous syringe (denosumab) 60 mg subcut [id number] #1 mL 12/06/22 [Rx Last Taken Unknown] prednisone 2.5 mg tablet 2.5 mg PO .COMPLEX #360 tabs 12/06/22 [Rx Last Taken Unknown] ezetimibe 10 mg tablet 10 mg PO DAILY #90 tabs 01/07/23 [Rx Last Taken Unknown] levothyroxine 88 mcg tablet 88 mcg PO .COMPLEX THYROID #14 tabs 03/21/23 [Rx Last Taken Unknown] fludrocortisone 0.1 mg tablet 0.1 mg PO DAILY #90 tabs 05/02/23 [Rx Last Taken Unknown] gemfibrozil 600 mg tablet 600 mg PO BID 05/05/23 [History Last Taken Unknown] Allergy/AdvReac Type Severity Reaction Status Date / Time ticagrelor [From Brilinta] Allergy Severe Shortness Verified 05/05/23 21:11 of breath amitriptyline Allergy Unknown Other Verified 05/05/23 21:11 bee venom protein (honey bee) Allergy Anaphylaxis Verified 05/05/23 21:11 house dust mite Allergy uknown Verified 05/05/23 21:11 povidone-iodine Allergy Rash Verified 05/05/23 21:11 [From Betadine] soap [From Betadine] Allergy Rash Verified 05/05/23 21:11 atorvastatin [From Lipitor] AdvReac Intermediate Pain in Verified 05/05/23 21:11 joints rosuvastatin calcium AdvReac Intermediate Pain in Verified 05/05/23 21:11 [From Crestor] joints metoprolol [From Toprol XL] AdvReac gi upset Verified 05/05/23 21:11 pramipexole [From Mirapex] AdvReac Low blood Verified 05/05/23 21:11 pressure simvastatin AdvReac Pain in Verified 05/05/23 21:11 [From Vytorin 10-10] joints Family History Mother Colon cancer Father Emphysema, unspecified Son Down's syndrome Sister Breast cancer Thyroid disorder Aunt Breast cancer Uncle Myocardial infarction, Onset Age: 55 Other Asthma Heart disease Hyperlipidemia Surgical History History of coronary artery stent placement (~03/22/16) History of hysterectomy History of left heart catheterization (01/20/19) History of tonsillectomy Joint removal bilateral great toe Social History Smoking Status: Former smoker Tobacco: How many years used: 10 alcohol intake: current alcohol intake frequency: holidays/special occasions only substance use type: does not use what type of physical activity do you participate in: other frequency: 1-2 times per week ROS Constitutional Constitutional: Denies fever(s) or weight loss Eyes Eyes: Reports systems reviewed and no addt'l complaints, except as documented ENT HEENT: Reports systems reviewed and no addt'l complaints, except as documented Cardiovascular Cardiovascular: Denies chest pain at rest, chest pain with activity, dyspnea at rest, dyspnea on exertion, edema, palpitations or paroxysmal nocturnal dyspnea Respiratory/Chest Respiratory/Chest: Denies dyspnea on exertion, productive cough, shortness of breath at rest or shortness of breath with exertion Gastrointestinal Gastrointestinal: Denies change in bowel habits, nausea, vomiting or weight changes Genitourinary Genitourinary: Denies difficulty urinating Musculoskeletal Musculoskeletal: Denies joint stiffness or muscle weakness Integumentary Integumentary: Denies lesions Neurologic Neurologic: Denies dizziness or syncope Psychiatric Psychiatric: Denies anxiety Endocrine Endocrinology: Denies excessive sweating or fatigue Hematologic/Lymphatic Hematologic/Lymphatic: Denies anemia Allergic/Immunologic Allergic/Immunologic: Denies seasonal rhinorrhea Physical Exam Const alert, oriented x3 and no apparent distress General Appearance: cooperative HEENT hearing grossly normal bilaterally Head and Scalp: atraumatic Eyes EOMs intact bilaterally Neck General: normal visual inspection Chest inspection of chest normal and palpation of chest normal Resp normal respiratory effort Auscultation: clear to auscultation bilaterally Cardio regular rate, regular rhythm, S1 normal heart sound and S2 normal heart sound Jugular Venous Distention: JVD GI normal to inspection, nondistended, normoactive bowel sounds Extremity normal capillary refill and no pedal edema Peripheral Pulses: Yes pulses 2+ throughout and femoral pulses present Skin no rashes or lesions noted Neuro oriented x3 and CN's II-XII intact bilaterally Psych Appearance: grossly normal and appropriate Risk Stratification Risk Stratification Applicable: Yes Age >/= 65: Yes >/= 3 CAD Risk Factors (HTN, HLD, DM, family hx of CAD, or current smoker): Yes Aspirin Use in the Past 7 Days: Yes Severe Angina (>/= episodes in 24 hours): No EKG ST Changes >/= 0.5mm: No Positive Cardiac Marker: Yes CHANEL Risk Stratification Score: 4 CHANEL % Risk: 20% Risk Objective Data Vital Signs: Vital Signs Temp Pulse Resp BP Pulse Ox O2 Del Method 98.1 F 62 14 85/47 L 96 Room Air 05/06/23 08:36 05/06/23 08:36 05/06/23 08:36 05/06/23 08:36 05/06/23 08:36 05/06/23 08:41 Oxygen Delivery Method Room Air Weight: 124 lb 8.979 oz Body Mass Index (BMI) 25.1 Intake & Output: Intake and Output for Last 24 Hours 05/04/23 05/05/23 05/06/23 23:59 23:59 23:59 Intake Total 111.45 / 111.45 Balance 111.45 / 111.45 Lab / Micro Data 05/06/23 07:07 05/06/23 07:07 Labs: Laboratory Results - last 24 hr 05/05/23 21:44: WBC 7.5, RBC 4.70, Hgb 14.2, Hct 43.0, MCV 91.5, MCH 30.2, MCHC 33.0, RDW Std Deviation 43.9, RDW Coeff of Asher 13.0, Plt Count 174, MPV 10.2, Immature Gran % (Auto) 0.300, Neut % (Auto) 89.7 H, Lymph % (Auto) 4.0 L, [place]ill % (Auto) 4.5, Eos % (Auto) 1.2, Baso % (Auto) 0.3, Absolute Neuts (auto) 6.8, Absolute Lymphs (auto) 0.30 L, Nucleated RBC % 0, PT 13.6, INR 1.0, APTT 27.0, Sodium 139, Potassium 3.3 L, Chloride 106, Carbon Dioxide 24.0, Anion Gap 9, BUN 13, Creatinine 0.76, Estim Creat Clear Calc 44.97, Est GFR (MDRD) Af Amer 94, Est GFR (MDRD) Non-Af 78, BUN/Creatinine Ratio 17.1, Glucose 115 H, Calcium 9.2, Total Bilirubin 0.60, Direct Bilirubin 0.22, AST 29, ALT 46, Alkaline Phosphatase 47, Troponin I High Sens 59 H, Total Protein 6.7, Albumin 3.5, Globulin 3.2, Lipase 20 05/06/23 00:05: Troponin I High Sens 72 H 05/06/23 03:10: Troponin I High Sens 63 H 05/06/23 07:07: WBC 6.9, RBC 4.59, Hgb 14.0, Hct 41.5, MCV 90.4, MCH 30.5, MCHC 33.7, RDW Std Deviation 42.7, RDW Coeff of Asher 12.9, Plt Count 178, MPV 10.0, APTT 45.7 H, D-Dimer Quant (PE/DVT) 1.18 H*, Sodium 140, Potassium 3.0 L, Chloride 108 H, Carbon Dioxide 24.0, Anion Gap 8, BUN 12, Creatinine 0.62, Estim Creat Clear Calc 44.18, Est GFR (MDRD) Af Amer 120, Est GFR (MDRD) Non-Af 99, BUN/Creatinine Ratio 19.5, Glucose 96, Calcium 8.6, Total Bilirubin 0.90, AST 24, ALT 38, Alkaline Phosphatase 42 L, Total Protein 6.3 L, Albumin 3.2, Globulin 3.1, Albumin/Globulin Ratio 1.0, Triglycerides 98, Cholesterol 145, LDL Cholesterol 90, VLDL Cholesterol 20, HDL Cholesterol 35 L, TSH 4.29 H Cardiology Labs/Tests 05/05/23 21:44: WBC 7.5, RBC 4.70, Hgb 14.2, Hct 43.0, MCV 91.5, MCH 30.2, MCHC 33.0, Plt Count 174, MPV 10.2, Immature Gran % (Auto) 0.300, Neut % (Auto) 89.7 H, Lymph % (Auto) 4.0 L, [place] % (Auto) 4.5, Eos % (Auto) 1.2, Baso % (Auto) 0.3, Absolute Neuts (auto) 6.8, Nucleated RBC % 0, PT 13.6, INR 1.0, APTT 27.0, Sodium 139, Potassium 3.3 L, Chloride 106, Carbon Dioxide 24.0, Anion Gap 9, BUN 13, Creatinine 0.76, Est GFR (MDRD) Af Amer 94, Est GFR (MDRD) Non-Af 78, BUN/Creatinine Ratio 17.1, Glucose 115 H, Calcium 9.2, Total Bilirubin 0.60, Direct Bilirubin 0.22 05/06/23 07:07: WBC 6.9, RBC 4.59, Hgb 14.0, Hct 41.5, MCV 90.4, MCH 30.5, MCHC 33.7, Plt Count 178, MPV 10.0, APTT 45.7 H, D-Dimer Quant (PE/DVT) 1.18 H*, Sodium 140, Potassium 3.0 L, Chloride 108 H, Carbon Dioxide 24.0, Anion Gap 8, BUN 12, Creatinine 0.62, Est GFR (MDRD) Af Amer 120, Est GFR (MDRD) Non-Af 99, BUN/Creatinine Ratio 19.5, Glucose 96, Calcium 8.6, Total Bilirubin 0.90, Trigl ycerides 98, Cholesterol 145, LDL Cholesterol 90, VLDL Cholesterol 20, HDL Cholesterol 35 L Rhythm: EKG: ECHO: Stress Test: Cardiac Cath: PCI: CT Surgery: Holter monitor: EPS: PPM: CXR: Chest CT Scan: Radiography Diagnostic Testing: Radiology Impression Chest X-Ray 05/05/23 22:20 IMPRESSION: There are findings consistent with COPD. There is no evidence of acute chest disease. Electronically Signed: Oscar Cotton MD at 22:36 EDT ,
[2023-05-06] MEDS: Potassium Chloride Oral Tablet 20 MEQ 40 MEQ PO (10:05)
[2023-05-06] MEDS: Clopidogrel Bisulfate 75 MG Tablet PO (10:08)
--- NOTE | 2023-05-06 10:10 | CASEMGMT ---
Insurance review for hospitals In-network with?[employer] insurance if transfer is recommended is as follows:?[facility], [place], [facility], [facility], [facility], [facility], [facility]), [facility], [facility], and . Rosmery Kenny, Discharge Planning Asst.
[2023-05-06] MEDS: 0.9% Normal Saline (1000mL) 1,000 ML 15 ML IV (11:06)
[2023-05-06] MEDS: Tolterodine Tartrate 2 MG CAP.SA PO (12:18)
[2023-05-06] MEDS: Fludrocortisone Acetate 0.1 MG Tablet PO (12:18)
[2023-05-06] MEDS: Pantoprazole Sodium 40 MG Tablet PO (12:18)
[2023-05-06] MEDS: Multivitamins,Therapeutic Tablet 1 TABLET PO (12:18)
[2023-05-06] MEDS: predniSONE 5 MG Tablet PO (12:19)
[2023-05-06] MEDS: Montelukast 10 MG Tablet PO (12:19)
[2023-05-06] MEDS: Ezetimibe 10 MG Tablet PO (12:19)
[2023-05-06] MEDS: Gabapentin 300 MG Capsule PO (12:23)
--- NOTE | 2023-05-06 12:35 | CASEMGMT ---
RN CM Face to Face with patient for initial transition planning/care coordination assessment. RN CM introduced self and role at [facility]. Patient lying in bed, alert and oriented, at bedside. Patient willing to participate in assessment and is able to answer all questions appropriately. Care providers, pharmacy, and demographics verified. PCP: [facility] Specialists: , peoplesoft taleo manager; Dior, employee relation manager; Thor Hsu, bolt sawyer; Preferred Pharmacy: [facility] Insurance: [place] [facility] Prescription Benefit: yes Living Will/HPOA: yes, Aubrey Ratliff LNOK: , daughter Living Arrangements: Patient lives with in a 2 story home. Patient is independent and able to ambulate stairs. Transportation: self, DME/HHC: Patient states she has grab bar at home. No previous HHC or SNF. Patient wishes to discharge home, denies need for home health at this time. Patient states he has no further needs or concerns at this time. CM to follow for discharge planning needs that may arise. Disposition Plan: Patient to discharge home with family support and follow-up plans in place. Ana FLETCHER, RN, CM
--- NOTE | 2023-05-06 14:22 | DS.PCM_ITS ---
Providers Date of Admission: 05/06/23 Primary Care Physician: Dr. Semaj Garza MD Consultations 05/06/23 02:35 Consult: Cardiology Routine Consulting Provider: Lorenzo Garcia Reason for Consult: Chest Pain EMERGENT Consult: No MD Notified: Yes Date Notified: 05/06/23 Time Notified: 07:00 Method of Notification: Text Method of Consult:: In-Person Reason For Visit: CHEST PAIN WITH MILDLY ELEVATED TROPONIN IN THE Diagnosis Discharge Diagnosis (1) ACS (acute coronary syndrome): Status: Acute Code(s): I24.9 - Acute ischemic heart disease, unspecified (2) Chest pain: Status: Acute Code(s): R07.9 - Chest pain, unspecified Qualifiers: Chest pain type: unspecified Qualified Code(s): R07.9 - Chest pain, unspecified (3) Coronary artery disease: Status: Chronic Code(s): I25.10 - Atherosclerotic heart disease of [place] coronary artery without angina pectoris Qualifiers: Coronary Disease-Associated Artery/Lesion type: [place] artery [place] vs. transplanted heart: [place] heart Associated angina: with unspecified form of angina Qualified Code(s): I25.119 - Atherosclerotic heart disease of [place] coronary artery with unspecified angina pectoris (4) Dyslipidemia: Status: Chronic Code(s): E78.5 - Hyperlipidemia, unspecified Plan Unstable angina * troponin elevated, slightly * check echo * cath showed minimal LAD disease. * follow up echo * ASA, clopidogrel. Unable to tolerate statins. Chronic conditions: * Essential hypertension - Continue home regimen plus give as needed IV hydralazine for systolic blood pressure greater than 160 mmHg. * Hyperlipidemia; with intolerance to multiple statins - Resume ezetimibe and gemfibrozil plus check lipid profile this admission in light of #1. * Hypothyroidism - Continue Synthroid as previous plus check TSH. * History of [place]'s disease * History of polycythemia vera and chronic anemia - Stable with hemoglobin of 14.2 g/dL present on admission. * Neuropathy - Continue current management. * Overweight; with BMI of 26.1 this admission - Weight loss will be recommended. * Asthma - Stable with no evidence of flare at this time. Continue as needed nebulizers. * Overactive bladder - Resume oxybutynin. * History of bronchiectasis - Stable. * GERD; with history of peptic ulcer disease - Continue PPI. * Osteoporosis - Restart Prolia as outpatient. * Osteoarthritis - Give Tylenol as needed. DVT prophylaxis - Patient given IV heparin for #1. Medications at Discharge Home Medications omeprazole 40 mg capsule,delayed release 40 mg PO DAILY REFLUX 04/01/13 aspirin 81 mg chewable tablet 81 mg PO DAILY@0800 HEART HEALTH 03/25/16 biotin 10,000 mcg capsule 10,000 mcg PO DAILY SUPPLEMENT 11/06/18 nitroglycerin 0.4 mg sublingual tablet 0.4 mg sublingual Q5M PRN Chest Pain #25 tabs 07/04/20 fluticasone furoate 200 mcg/actuation blister powder for inhalation (Arnuity Ellipta) 1 inh inhalation DAILY 10/04/20 montelukast 10 mg tablet 10 mg PO DAILY 01/20/21 gabapentin 300 mg capsule 300 mg PO BID 01/25/22 melatonin 5 mg tablet 5 mg PO HS PRN sleep 01/25/22 oxybutynin chloride 5 mg tablet,extended release 24 hr 5 mg PO DAILY 01/25/22 fluticasone propionate 50 mcg/actuation nasal spray,suspension (Flonase Allergy Relief) 1 spray intranasal DAILY PRN allergy symptoms 06/05/22 multivitamin 1 tab PO DAILY 07/24/22 amlodipine 2.5 mg tablet 2.5 mg PO DAILY #90 tabs 11/14/22 Prolia 60 mg/mL subcutaneous syringe (denosumab) 60 mg subcut [id number] #1 mL 12/06/22 prednisone 2.5 mg tablet 2.5 mg PO .COMPLEX #360 tabs 12/06/22 ezetimibe 10 mg tablet 10 mg PO DAILY #90 tabs 01/07/23 levothyroxine 88 mcg tablet 88 mcg PO .COMPLEX THYROID #14 tabs 03/21/23 fludrocortisone 0.1 mg tablet 0.1 mg PO DAILY #90 tabs 05/02/23 gemfibrozil 600 mg tablet 600 mg PO BID 05/05/23 clopidogrel 75 mg tablet 75 mg PO DAILY #30 tabs 05/06/23 Hospital Course Summary of Care Provided Minutes Spent on Discharge: 32 Weight / BMI Weight Weight: 56.5 kg Body Mass Index (BMI) 25.1 ABG / Lab / Microbiology Data 05/06/23 07:07 05/06/23 07:07 Laboratory: Laboratory Results - last 24 hr 05/05/23 21:44: WBC 7.5, RBC 4.70, Hgb 14.2, Hct 43.0, MCV 91.5, MCH 30.2, MCHC 33.0, RDW Std Deviation 43.9, RDW Coeff of Asher 13.0, Plt Count 174, MPV 10.2, Immature Gran % (Auto) 0.300, Neut % (Auto) 89.7 H, Lymph % (Auto) 4.0 L, [place] % (Auto) 4.5, Eos % (Auto) 1.2, Baso % (Auto) 0.3, Absolute Neuts (auto) 6.8, Absolute Lymphs (auto) 0.30 L, Nucleated RBC % 0, PT 13.6, INR 1.0, APTT 27.0, Sodium 139, Potassium 3.3 L, Chloride 106, Carbon Dioxide 24.0, Anion Gap 9, BUN 13, Creatinine 0.76, Estim Creat Clear Calc 44.97, Est GFR (MDRD) Af Amer 94, Est GFR (MDRD) Non-Af 78, BUN/Creatinine Ratio 17.1, Glucose 115 H, Calcium 9.2, Total Bilirubin 0.60, Direct Bilirubin 0.22, AST 29, ALT 46, Alkaline Phosphatase 47, Troponin I High Sens 59 H, Total Protein 6.7, Albumin 3.5, Globulin 3.2, Lipase 20 05/06/23 00:05: Troponin I High Sens 72 H 05/06/23 03:10: Troponin I High Sens 63 H 05/06/23 07:07: WBC 6.9, RBC 4.59, Hgb 14.0, Hct 41.5, MCV 90.4, MCH 30.5, MCHC 33.7, RDW Std Deviation 42.7, RDW Coeff of Asher 12.9, Plt Count 178, MPV 10.0, APTT 45.7 H, D-Dimer Quant (PE/DVT) 1.18 H*, Sodium 140, Potassium 3.0 L, Chloride 108 H, Carbon Dioxide 24.0, Anion Gap 8, BUN 12, Creatinine 0.62, Estim Creat Clear Calc 44.18, Est GFR (MDRD) Af Amer 120, Est GFR (MDRD) Non-Af 99, BUN/Creatinine Ratio 19.5, Glucose 96, Calcium 8.6, Total Bilirubin 0.90, AST 24, ALT 38, Alkaline Phosphatase 42 L, Total Protein 6.3 L, Albumin 3.2, Globulin 3.1, Albumin/Globulin Ratio 1.0, Triglycerides 98, Cholesterol 145, LDL Cholesterol 90, VLDL Cholesterol 20, HDL Cholesterol 35 L, TSH 4.29 H Radiography Diagnostic Testing: Radiology Impression Chest X-Ray 05/05/23 22:20 IMPRESSION: There are findings consistent with COPD. There is no evidence of acute chest disease. Electronically Signed: Oscar Cotton MD at 22:36 EDT , Echocardiogram 05/06/23 02:35 Interpretation Summary Normal LV size. Left ventricular systolic function is normal. The left ventricular ejection fraction is 60 %. Stage 2 diastolic dysfunction. Mild (1+) eccentric mitral valve insufficiency. Mild (1+) eccentric tricuspid valve insufficiency. Ordering Physician: Ammon Guerreor Referring Physician: SEMAJ GARZA Performed By: Leslie Oliveira RCS D/C Instructions Discharge Diet: Low fat / Low cholesterol Meaningful Use Info Meaningful Use Diagnoses (Choose all that apply): None applicable Discharge Plan Admission Admit Date/Time: 05/06/23 01:37 Primary Reason for Your Visit: Unstable angina. Attending Provider: Khari Escobar Primary Care Provider: Semaj Garza Consulting Providers: Ammon Guerrero; Vesta Vuong; Sabrina Toro; Zoila Reinoso; Cam Oliveira; Kb Oliva; John Rader; Jovanny Calix; Khari Lopez; Lexi Anglin; Hayden Rincon; Jaspal Ramirez; Sharlene Navarro; Alexey Sullivan; Jean Espana; Sonny Carlos; José Means; Joel Collier MANAGER FRONT; Vesta Mancini NP; Binta Anderson Instructions Additional Instructions / Restrictions: You experience chest pain. Your heart cath showed minimal disease on your vessels. Not enough to warrant a stent. You will continue with aspirin as you are previously taking but we will be adding clopidogrel (Plavix). Please follow-up with cardiology in a month. If you do have recurrent symptoms or worsening symptoms, notify your physician or return to the emergency room. Discharge Orders/Prescriptions Prescriptions: New clopidogrel 75 mg Tablet 75 mg PO DAILY Qty: 30 0RF Continued nitroglycerin 0.4 mg tablet, sublingual 0.4 mg SUBLINGUAL Q5M PRN (Reason: Chest Pain) Qty: 25 3RF Arnuity Ellipta 200 mcg/actuation blister with device 1 inh inhalation DAILY montelukast 10 mg tablet 10 mg PO DAILY melatonin 5 mg tablet 5 mg PO HS PRN (Reason: sleep) gabapentin 300 mg capsule 300 mg PO BID Hold Instructions: MD Ordered oxybutynin chloride 5 mg tablet extended release 24hr 5 mg PO DAILY fluticasone propionate [Flonase Allergy Relief] 50 mcg/actuation spray,suspension 1 spray intranasal DAILY PRN (Reason: allergy symptoms) Rx Instructions: administer into each nostril Prolia 60 mg/mL syringe 60 mg subcut [id number] Qty: 1 1RF prednisone 2.5 mg tablet 2.5 mg PO .COMPLEX Qty: 360 3RF Rx Instructions: 2.5 mg PO take 2 tabs in the am and 1 tab in the afternoon; take more on sick days multivitamin Tablet 1 tab PO DAILY omeprazole 40 MG capsule 40 mg PO DAILY Patient Comments: GERD aspirin 81 MG tablet,chewable 81 mg PO DAILY@0800 biotin 10,000 MCG capsule 10,000 mcg PO DAILY gemfibrozil 600 mg tablet 600 mg PO BID amlodipine 2.5 mg tablet 2.5 mg PO DAILY Qty: 90 3RF ezetimibe 10 mg tablet 10 mg PO DAILY Qty: 90 3RF levothyroxine 88 mcg tablet 88 mcg PO .COMPLEX Qty: 14 0RF Rx Instructions: 88 mcg PO 1 tab mon-sat, 1/2 tab on Sun; fludrocortisone 0.1 mg tablet 0.1 mg PO DAILY Qty: 90 1RF Referrals / Follow Up: [facility] [Provider Group] - Within 1 Month Semaj Garza MD [Primary Care Provider] - Within 2 Weeks Disposition Disposition (needs filled in before D/C Order can be placed): Home, Self Care Charges/Coding Visit Charges Inpatient E&M: 23332 Disch Hosp >30min
--- NOTE | 2023-05-06 14:58 | PHA.DC_ITS ---
Pharmacy [facility] has performed discharge medication reconciliation and counseling for this patient. The patient's discharge medication list was reviewed for discrepancies and discrepancies were resolved. The patient was counseled on the following discharge medications and changes in medications for homegoing were reviewed. The Reason for Use, instructions for use, and potential side effects were reviewed for all new medications. The patient's questions regarding all of their medications were answered. 1. Clopidogrel 75 mg PO daily. The patient was able to verbally demonstrate an understanding of their discharge medications. Medications at Discharge Home Medications omeprazole 40 mg capsule,delayed release 40 mg PO DAILY REFLUX 04/01/13 aspirin 81 mg chewable tablet 81 mg PO DAILY@0800 HEART [facility]ALTH 03/25/16 biotin 10,000 mcg capsule 10,000 mcg PO DAILY SUPPLEMENT 11/06/18 nitroglycerin 0.4 mg sublingual tablet 0.4 mg sublingual Q5M PRN Chest Pain #25 tabs 07/04/20 fluticasone furoate 200 mcg/actuation blister powder for inhalation (Arnuity Ell ipta) 1 inh inhalation DAILY breathing 10/04/20 montelukast 10 mg tablet 10 mg PO DAILY allergies 01/20/21 gabapentin 300 mg capsule 300 mg PO BID nerve pain 01/25/22 melatonin 5 mg tablet 5 mg PO HS PRN sleep 01/25/22 oxybutynin chloride 5 mg tablet,extended release 24 hr 5 mg PO DAILY bladder 01/25/22 fluticasone propionate 50 mcg/actuation nasal spray,suspension (Flonase Allergy Relief) 1 spray intranasal DAILY PRN allergy symptoms 06/05/22 multivitamin 1 tab PO DAILY vitamin 07/24/22 amlodipine 2.5 mg tablet 2.5 mg PO DAILY blood pressure #90 tabs 11/14/22 Prolia 60 mg/mL subcutaneous syringe (denosumab) 60 mg subcut [id number] bone health #1 mL 12/06/22 prednisone 2.5 mg tablet 2.5 mg PO .COMPLEX inflammation #360 tabs 12/06/22 ezetimibe 10 mg tablet 10 mg PO DAILY cholesterol #90 tabs 01/07/23 levothyroxine 88 mcg tablet 88 mcg PO .COMPLEX THYROID #14 tabs 03/21/23 fludrocortisone 0.1 mg tablet 0.1 mg PO DAILY #90 tabs 05/02/23 gemfibrozil 600 mg tablet 600 mg PO BID cholesterol 05/05/23 clopidogrel 75 mg tablet 75 mg PO DAILY #30 tabs 05/06/23
[2023-05-06 15:16] LABS: Partial Thromboplast Time 21.6 Seconds (24.1-36.2)
--- NOTE | 2023-05-07 14:26 | CL.D_ITS ---
Patient Name: FABIANO SOLANO Study Date: 05/06/2023 Performing: John Rader MD Ht: 59 inches 149.86 cm : 1945 Wt: 124.56 lbs 56.5 kg Age: 78 Gender: female BSA: 1.51 PROCEDURE(S) PERFORMED DC01-(25646)LHC/COR/LV CLINICAL PROFILE AND INDICATIONS Indications: Worsening Angina Heart Failure: None Stress/Imaging Stress/Image Study Performed: No CAD Presentations: Unstable angina. 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 Previous stent in the LAD is patent. RECOMMENDATIONS Medical therapy DESCRIPTION OF PROCEDURE The patient arrived to the procedure lab. The risks and benefits of the procedure as well as a full description of our services here and current unavailability of surgical backup were fully explained to the patient and/or their significant other prior to the catheterization. The Timeout was completed, verifying the correct patient and procedure. The patient's procedural site was prepped and draped in the usual fashion. Local anesthetic was given subcutaneously to right radial region with Lidocaine 2%. Using a modified Seldinger technique, arterial access was obtained via the right radial artery, a 6Fr sheath was inserted. Left Coronary Artery selective angiography was performed in multiple views using a 5 Fr. 4.0 Cornucopia catheter. Right Coronary Artery selective angiography was then performed in multiple views using a 5 Fr. 4.0 Cornucopia catheter. Left Ventriculography was performed in SEBASTIAN projection using a 5 Fr. Pigtail catheter. LV to AO pullback pressures were then recorded.The arterial sheath was pulled and a TR Band was applied for hemostasis w/ 10ml air CORONARY ANGIOGRAPHY DOMINANCE: Right Dominant LEFT HEART ASSESSMENT Left Ventricular Ejection Fraction: by LV Gram 60 % Normal LV wall motion Normal Left Ventricular systolic function LEFT MAIN: Angiographically normal LEFT ANTERIOR DESCENDING ARTERY: Medium size vessel with previously placed stent which is noted to be patent in the first tiny diagonal branch with high-grade ostial stenosis. There is an area of approximately 50 to 60% stenosis noted prior to the stent. The rest of the vessel appears to be minimally diseased. CIRCUMFLEX ARTERY: Mild luminal irregularities less than 30% RIGHT CORONARY ARTERY: No significant disease noted COMPLICATIONS No Complications PROCEDURE MEDICATIONS Versed 1 mg IV Oxygen: 2 L/min via nasal cannula Heparin given IA 05/06/2023 10:20:47 Potassium Chloride 40 mEq PO 05/06/2023 10:05:10 Plavix 75 mg PO 05/06/2023 10:08:43 IV Bolus: .9 NaCl 150 ml total 05/06/2023 10:36:47 SUMMARY OF HEMODYNAMIC DATA Time AIR REST ECG 10:03:35 AO 87/51 (69) SA 10:24:40 LV 104/6, 14 10:30:00 LV 101/9, 13 10:30:08 LV 95/7, 15 10:30:39 LV 83/8, 13 10:30:48 LVp 84/7, 14 10:30:51 AOp 92/46 (66) 10:30:58 10:44:17 Signed By John Rader MD On 05/06/2023 10:44:44 John Rader MD
== END 2023-05-06 16:41 | disposition home or self-care (01) | DRG 287 ==
LOC: ED 21:55 → PCU 05-06 01:50
PROVIDERS: Admitting Provider Internal Medicine; Emergency Provider Emergency Medicine; PCP Family Medicine
DX: I24.9 Acute ischemic heart disease, unspecified (principal); E27.40 Unspecified adrenocortical insufficiency; I25.110 Atherosclerotic heart disease of native coronary artery with unstable angina pectoris; I10 Essential (primary) hypertension; E03.9 Hypothyroidism, unspecified; E06.3 Autoimmune thyroiditis; K21.9 Gastro-esophageal reflux disease without esophagitis; G62.9 Polyneuropathy, unspecified; M19.90 Unspecified osteoarthritis, unspecified site; E78.2 Mixed hyperlipidemia; E66.3 Overweight; N32.81 Overactive bladder; Z95.5 Presence of coronary angioplasty implant and graft; Z79.51 Long term (current) use of inhaled steroids; Z79.02 Long term (current) use of antithrombotics/antiplatelets; M81.0 Age-related osteoporosis without current pathological fracture; Z87.891 Personal history of nicotine dependence; Z80.0 Family history of malignant neoplasm of digestive organs; Z79.52 Long term (current) use of systemic steroids; Z79.82 Long term (current) use of aspirin; Z82.5 Family history of asthma and other chronic lower respiratory diseases
CPT/HCPCS: 36415; 71046; 80048; 80053; 80061; 80076; 83690; 84443; 84484; 85025; 85027; 85379; 85610; 85730; 93005; 93306; 93458; 99152; 99285; J7030; Q9967; A4216; C1769; C1894

== ENCOUNTER → 2023-05-22 | Outpatient (CLI) | payer MEDICARE, SELFPAY ==
[2016-03-22 09:58] VITALS: BMI 23.0
[2023-05-22 11:08] LABS: Anion Gap 6 (5-15); BUN 14 mg/dL (7-18); BUN/Creat Ratio 17.6 RATIO (10-20); Calcium,Total 8.8 mg/dL (8.5-10.1); Chloride 108 mmol/L (98-107); EST Glomerular Filtration Rate 74 mL/min (>60); Est Glom Filt Rate - Afr Amer 89 mL/min (>60); Glucose 101 mg/dL (74-106); Magnesium 2.2 mg/dL (1.6-2.6); Potassium 3.5 mmol/L (3.5-5.1); Sodium Level 141 mmol/L (136-145)
== END | disposition home or self-care (01) ==
LOC: LAB 10:12
PROVIDERS: PCP Family Medicine; Referring Provider Physician Assistant Medical; Visit Provider Physician Assistant Medical
DX: I25.10 Atherosclerotic heart disease of native coronary artery without angina pectoris (principal); E87.6 Hypokalemia
CPT/HCPCS: 36415; 80048; 83735

== ENCOUNTER → 2024-06-16 | Outpatient (CLI) | payer MEDICARE, SELFPAY ==
[2016-03-22 09:58] VITALS: BMI 23.0
[2024-06-16 16:47] LABS: Cholesterol 220 mg/dL (<=200); High Density Lipoprotein 48 mg/dL; Low Density Lipoprotein Calc. 137 mg/dL; Triglycerides 177 mg/dL; Very Low Density Lipoprotein 35 mg/dL (5-40); Vitamin D,25 Hydroxy 27.7 ng/mL (30-100); cholesterol:hdl ratio screen 4.59
[2024-06-16 16:48] LABS: ALB/GLOB Ratio 1.8 RATIO (0.9-2.4); AST(SGOT) 27 U/L (<=31); Alanine Aminotransfer ALT/SGPT 28 U/L (<=34); Albumin, Serum 4.2 g/dL (3.4-4.8); Alkaline Phosphatase 43 U/L (35-104); Anion Gap 14 (5-15); BUN 20 mg/dL (4-19); BUN/Creat Ratio 28.2 RATIO (10-20); Calcium,Total 9.6 mg/dL (7.6-11.0); Carbon Dioxide 21.4 mmol/L (21.0-32.0); Chloride 103 mmol/L (98-108); EST Glomerular Filtration Rate 86 (>60); Globulin 2.4 g/dL (2.2-4.2); Glucose 127 mg/dL (70-99); Potassium 3.9 mmol/L (3.3-5.1); Protein, Total 6.7 g/dL (5.9-8.4); Sodium Level 139 mmol/L (133-145)
== END | disposition home or self-care (01) ==
LOC: LAB 14:22
PROVIDERS: PCP Family Medicine; Referring Provider Internal Medicine Endocrinology, Diabetes & Metabolism; Visit Provider Internal Medicine Endocrinology, Diabetes & Metabolism
DX: E78.5 Hyperlipidemia, unspecified (principal); E27.1 Primary adrenocortical insufficiency; E03.8 Other specified hypothyroidism; E06.3 Autoimmune thyroiditis; M81.0 Age-related osteoporosis without current pathological fracture; I10 Essential (primary) hypertension
CPT/HCPCS: 36415; 80053; 80061; 82306; 84439; 84443